=== PATIENT | female | born 1945 | race Caucasian/White ===

== ENCOUNTER → 2016-12-11 | Outpatient (CLI) | payer MEDICARE ==
--- NOTE | 2016-12-14 20:25 | Diagnostic Imaging Report ---
Bilateral screening mammogram The current study was also evaluated with a Computer Aided Detection (CAD) system. Indication: Screening. No current complaints stated on the questionnaire. COMPARISON: 12/07/2015 FINDINGS: The breasts are composed of heterogeneously dense parenchyma which may decrease mammographic sensitivity. Benign-appearing calcification is seen. Allowing for technique and positional differences, no suspicious change is seen. IMPRESSION: Dense breasts with no definite change. ACR BI-RADS Category 2: Benign findings. Result letter will be mailed to the patient. Note: At least 10% of breast cancer is not imaged by mammography. Dictated by: Dictated on workstation # [id number]
== END ==
LOC: RAD 10:31
PROVIDERS: ATTEND Nurse Practitioner
DX: Z12.31 Encounter for screening mammogram for malignant neoplasm of breast (principal)
CPT/HCPCS: 77067

== ENCOUNTER → 2018-01-02 | Outpatient (CLI) | payer MEDICARE ==
--- NOTE | 2018-01-02 16:32 | Diagnostic Imaging Report ---
INDICATION: Routine screening. Comparison is made with prior study from 12/11/2016 and 11/25/2014. Bilateral 2-D and 3-D screening mammography was performed with CAD. The current study was also evaluated with a Computer Aided Detection (CAD) system. FINDINGS: Scattered fibroglandular densities are identified bilaterally. No dominant mass or malignant-appearing microcalcifications are seen. There are benign calcifications present. The axillae are unremarkable. IMPRESSION: No mammographic features suspicious for malignancy are identified. ACR BI-RADS Category 2: Benign findings. Result letter will be mailed to the patient. Note: At least 10% of breast cancer is not imaged by mammography. Dictated by: Dictated on workstation # [id number]
== END ==
LOC: RAD 14:51
PROVIDERS: ATTEND Obstetrics & Gynecology
DX: Z12.31 Encounter for screening mammogram for malignant neoplasm of breast (principal)
CPT/HCPCS: 77067

== ENCOUNTER 2020-01-22 19:18 | Inpatient (IN) | payer MEDICARE ==
[~2020-01-22] VITALS: Ht 160 cm; Wt 53.5 kg
--- NOTE | 2020-01-22 19:36 | ED Lower Extremity ---
General Chief Complaint: Lower Extremity Stated Complaint: L HIP FX [facility] EMS[facility] Exam Limitations: other (dementia) History of Present Illness Date Seen by Provider: January 22, 2020 Time Seen by Provider: 19:31 Initial Comments [facility] with reports of left hip pain that she has been complaining of since yesterday. She had a mobile x-ray today which apparently showed a hip fracture. Primary care was notified and requested evaluation in the emergency room. prison staff reports there has been no witnessed fall since October of this year. Patient has Alzheimer's and is unable to contribute to history of present illness. Onset: yesterday Severity: moderate Pain/Injury Location: left hip Method of Injury: unknown Modifying Factors: Worse With Movement Allergies and Home Medications Allergies Coded Allergies: No Known Drug Allergies (Unverified , 01/22/20) Patient Home Medication List Home Medication List Reviewed: Yes Review of Systems Constitutional: see HPI, other (unable to obtain due to dementia) Physical Exam Vital Signs Vital Signs - First Documented 01/22/20 19:22 Temp 36.6 Pulse 84 Resp 16 B/P (MAP) 133/75 (94) Pulse Ox 95 O2 Delivery Room Air Capillary Refill : Height, Weight, BMI Height: '" Weight: lbs. oz. kg; BMI Method: General Appearance: WD/WN, no apparent distress, other (sleeping, arousable to loud verbal stimuli, otherwise disoriented and doesn't care much for conversation.) HEENT: PERRL/EOMI, normal ENT inspection, other (no obvious signs of head injury but I will obtain a CT scan of the head given her lethargy and the unknown details surrounding this left hip injury.) Neck: non-tender, full range of motion Respiratory: no respiratory distress, no accessory muscle use Hips: left hip other (the left leg is shortened and externally rotated with a palpable 1+ posterior tibial pulses bilaterally. No ecchymosis or erythema.) Legs: bilateral leg non-tender, bilateral leg normal inspection, bilateral leg normal range of motion Knees: bilateral knee non-tender, bilateral knee normal inspection, bilateral knee normal range of motion Ankles: bilateral ankle non-tender, bilateral ankle normal inspection, bilateral ankle normal range of motion Feet: bilateral foot non-tender, bilateral foot normal inspection, bilateral foot normal range of motion Neurologic/Psychiatric: other Skin: normal color, warm/dry Progress/Results/Core Measures Results/Orders Lab Results Laboratory Tests Test 01/22/20 19:24 01/22/20 19:25 Range/Units Urine Color YELLOW Urine Clarity CLEAR Urine pH 6.5 5-9 Urine Specific [place] 1.020 1.016-1.022 Urine Protein 1+ H NEGATIVE Urine Glucose (UA) TRACE H NEGATIVE Urine Ketones TRACE H NEGATIVE Urine Nitrite NEGATIVE NEGATIVE Urine Bilirubin NEGATIVE NEGATIVE Urine Urobilinogen 0.2 < = 1.0 MG/DL Urine Leukocyte Esterase NEGATIVE NEGATIVE Urine RBC (Auto) NEGATIVE NEGATIVE Urine RBC 2-5 H /HPF Urine WBC RARE /HPF Urine Crystals NONE /LPF Urine Bacteria FEW H /HPF Urine Casts NONE /LPF Urine Mucus SMALL H /LPF Urine Culture Indicated NO White Blood Count 9.0 4.3-11.0 10^3/uL Red Blood Count 3.72 L 4.35-5.85 10^6/uL Hemoglobin 10.3 L 11.5-16.0 G/DL Hematocrit 32 L 35-52 % Mean Corpuscular Volume 85 80-99 FL Mean Corpuscular Hemoglobin 28 25-34 PG Mean Corpuscular Hemoglobin Concent 33 32-36 G/DL Red Cell Distribution Width 15.2 H 10.0-14.5 % Platelet Count 336 130-400 10^3/uL Mean Platelet Volume 10.2 7.4-10.4 FL Neutrophils (%) (Auto) 83 H 42-75 % Lymphocytes (%) (Auto) 7 L 12-44 % Monocytes (%) (Auto) 10 0-12 % Eosinophils (%) (Auto) 0 0-10 % Basophils (%) (Auto) 0 0-10 % Neutrophils # (Auto) 7.5 1.8-7.8 X 10^3 Lymphocytes # (Auto) 0.6 L 1.0-4.0 X 10^3 Monocytes # (Auto) 0.9 0.0-1.0 X 10^3 Eosinophils # (Auto) 0.0 0.0-0.3 10^3/uL Basophils # (Auto) 0.0 0.0-0.1 10^3/uL Prothrombin Time 12.8 12.2-14.7 SEC INR Comment 0.9 0.8-1.4 Sodium Level 139 135-145 MMOL/L Potassium Level 3.6 3.6-5.0 MMOL/L Chloride Level 108 H 98-107 MMOL/L Carbon Dioxide Level 21 21-32 MMOL/L Anion Gap 10 5-14 MMOL/L Blood Urea Nitrogen 20 H 7-18 MG/DL Creatinine 0.84 0.60-1.30 MG/DL Estimat Glomerular Filtration Rate > 60 BUN/Creatinine Ratio 24 Glucose Level 143 H 70-105 MG/DL Calcium Level 9.1 8.5-10.1 MG/DL Corrected Calcium 9.4 8.5-10.1 MG/DL Total Bilirubin 0.2 0.1-1.0 MG/DL Aspartate Amino Transf (AST/SGOT) 16 5-34 U/L Alanine Aminotransferase (ALT/SGPT) 14 0-55 U/L Alkaline Phosphatase 101 40-136 U/L Total Protein 6.4 6.4-8.2 GM/DL Albumin 3.6 3.2-4.5 GM/DL My Orders Orders - KAIA JONES APRN Cbc With Automated Diff (01/22/20 19:29) Comprehensive Metabolic Panel (01/22/20 19:29) Protime With Inr (01/22/20 19:29) Khalil Cath (01/22/20 19:29) Chest 1 View, Ap/Pa Only (01/22/20 19:29) Ct Head Wo (01/22/20 19:29) Pelvis With Left Hip 2-3 Views (01/22/20 19:29) Ua Culture If Indicated (01/22/20 19:39) Fentanyl Injection (Sublimaze Injection (01/22/20 20:19) Fentanyl Injection (Sublimaze Injection (01/22/20 20:30) Ekg Tracing (01/22/20 20:30) Medications Given in ED Current Medications Medications Dose Ordered Sig/Nico Route Start Time Stop Time Status Last Admin Dose Admin Fentanyl Citrate 25 mcg Q1H PRN IVP 01/22/20 20:30 01/22/20 20:31 25 MCG Vital Signs/I&O 01/22/20 19:22 Temp 36.6 Pulse 84 Resp 16 B/P (MAP) 133/75 (94) Pulse Ox 95 O2 Delivery Room Air Diagnostic Imaging Diagonstic Imaging: CT Comments NAME: RENETTAWILLIAM Freeman [facility] REC#: [id number] PT STATUS: REG ER : 1945 PHYSICIAN: KAIA JONES APRN ADMIT DATE: 01/22/20/ER Draft Date of Exam:01/22/20 CT HEAD WO PROCEDURE: CT head without contrast. TECHNIQUE: Multiple contiguous axial images were obtained through the brain without the use of intravenous contrast. Auto Exposure Controls were utilized during the CT exam to meet ALARA standards for radiation dose reduction. INDICATION: Hip pain. Possible fall. Dementia. COMPARISON: No comparison available. FINDINGS: Examination is limited by patient motion. Allowing for the limitations of the exam, there are no findings to suggest acute intracranial hemorrhage. There is no intracranial mass effect or shift. There is no evidence of hydrocephalus. There is no abnormal extra-axial collection. There is no evidence to suggest territorial loss of franco-white differentiation. There are scattered regions of hypoattenuation within the periventricular white matter most likely reflective of microvascular disease. There is no abnormal low density within the basal ganglia. The mastoid air cells are clear. The paranasal sinuses demonstrate no air-fluid level. The orbital contents are unremarkable. There is no calvarial abnormality. IMPRESSION: Limited examination secondary to motion. There appear to be microvascular changes within the white matter and age-related global volume loss. There are, however, no CT findings to suggest an acute intracranial abnormality. Dictated on workstation # [id number] Dict: 01/22/202028 Trans: 01/22/202035 [facility] [phone] Interpreted by: MELISA RAPHAEL MD Electronically signed by: NAME: WILLIAM JACKSON [facility] REC#: [id number] PT STATUS: REG ER : 1945 PHYSICIAN: KAIA JONES APRN ADMIT DATE: 01/22/20/ER Draft Date of Exam:01/22/20 CHEST 1 VIEW, AP/PA ONLY EXAMINATION: Single view chest. INDICATION: Hip pain and dementia. FINDINGS: There are age-related interstitial changes within the lungs and there is some discoid atelectasis at both lung bases. There may be a trace left effusion. There is no pneumothorax. Heart size appears appropriate. This no evidence to suggest current congestive failure. IMPRESSION: Likely chronic interstitial changes within the lungs with basilar discoid atelectasis and possible trace left effusion. There is no evidence alveolar consolidation. There is no pneumothorax. No current findings to suggest pulmonary edema or failure. Dictated on workstation # [id number] Dict: 01/22/202031 Trans: 01/22/202036 [facility] [id number] Interpreted by: MELISA RAPHAEL MD Electronically signed by: NAME: WILLIAM JACKSON [facility] REC#: [id number] PT STATUS: REG ER : 1945 PHYSICIAN: KAIA JONES APRN ADMIT DATE: 01/22/20/ER Draft Date of Exam:01/22/20 PELVIS WITH LEFT HIP 2-3 VIEWS EXAMINATION: Let hip and pelvis. INDICATION: Left hip pain. FINDINGS: There is a displaced left subcapital femoral neck fracture with superior migration of the femoral shaft and trochanters. There is no dislocation of the femoral head. Right hip demonstrates no acute fracture. The pelvic ring demonstrates fractures of the bilateral pubic rami which appear to have periosteal reaction and suggests subacute fractures. IMPRESSION: 1. Acute displaced left subcapital femoral neck fracture without dislocation of the femoral head. 2. No proximal right hip fracture. 3. Fractures of the bilateral pubic rami which appear to have periosteal reaction and suggests subacute fractures. No pubic symphysis or SI joint diastasis evident. Dictated on workstation # [id number] Dict: 01/22/202032 Trans: 01/22/202038 [facility] [phone] Interpreted by: MELISA RAPHAEL MD Electronically signed by: Departure Communication (Admissions) Time/Spoke to Admitting Phy: 20:[address] Gotti and Dr. Jordan. Impression Primary Impression: Closed left hip fracture Qualified Codes: S72.002A - Fracture of unspecified part of neck of left femur, initial encounter for closed fracture Disposition: ADMITTED INPATIENT Condition: Stable Admissions Decision to Admit Reason: Admit from ER (Trauma) Decision to Admit/Date: January 22, 2020 Time/Decision to Admit Time: 19:36 Departure-Patient Inst. Referrals: BRANDON LOZANO MD (PCP/Family) Primary Care Physician KAIA JONES APRN January 22, 2020 19:36
[2020-01-22 19:43] LABS: BILIRUBIN,URINE NEGATIVE (NEGATIVE); CLARITY,URINE CLEAR; COLOR,URINE YELLOW; GLUCOSE, URINE (UA) TRACE (NEGATIVE); KETONES,URINE TRACE (NEGATIVE); LEUKOCYTE ESTERASE ,URINE NEGATIVE (NEGATIVE); NITRITE,URINE NEGATIVE (NEGATIVE); PH,URINE 6.5 (5-9); PROTEIN,URINE 1+ (NEGATIVE)
[2020-01-22 19:51] LABS: INR 0.9 (0.8-1.4); PROTHROMBIN TIME PATIENT 12.8 SEC (12.2-14.7)
[2020-01-22 19:56] LABS: BACTERIA,URINE FEW /HPF; WBC,URINE RARE /HPF
[2020-01-22 19:59] LABS: BASOPHILS % (AUTO) 0 % (0-10); EOSINOPHILS % (AUTO) 0 % (0-10); HEMATOCRIT 32 % (35-52); HEMOGLOBIN 10.3 G/DL (11.5-16.0); LYMPHOCYTES # (AUTO) 0.6 X 10^3 (1.0-4.0); LYMPHOCYTES % (AUTO) 7 % (12-44); MEAN CORPUSCULAR HEMOGLOBIN 28 PG (25-34); MEAN CORPUSCULAR HGB CONC 33 G/DL (32-36); MEAN CORPUSCULAR VOLUME 85 FL (80-99); MEAN PLATELET VOLUME 10.2 FL (7.4-10.4); MONOCYTES # (AUTO) 0.9 X 10^3 (0.0-1.0); MONOCYTES % (AUTO) 10 % (0-12); NEUTROPHILS # (AUTO) 7.5 X 10^3 (1.8-7.8); NEUTROPHILS % (AUTO) 83 % (42-75); PLATELET COUNT 336 10^3/uL (130-400); RED CELL DISTRIBUTION WIDTH 15.2 % (10.0-14.5)
[2020-01-22 20:06] LABS: ALANINE AMINOTRANSFERASE 14 U/L (0-55); ALBUMIN 3.6 GM/DL (3.2-4.5); ALKALINE PHOSPHATASE 101 U/L (40-136); BILIRUBIN,TOTAL 0.2 MG/DL (0.1-1.0); BUN/CREATININE RATIO 24; CALCIUM 9.1 MG/DL (8.5-10.1); CARBON DIOXIDE 21 MMOL/L (21-32); CREATININE SERUM 0.84 MG/DL (0.60-1.30); GFR ESTIMATED > 60; GLUCOSE 143 MG/DL (70-105); TOTAL PROTEIN 6.4 GM/DL (6.4-8.2)
[2020-01-22] MEDS ORDERED: fentaNYL INJECTION 100 MCG/2 ML AMP ONE (20:19)
[2020-01-22 20:31] LABS: CHLORIDE 108 MMOL/L (98-107); POTASSIUM 3.6 MMOL/L (3.6-5.0); SODIUM 139 MMOL/L (135-145)
[2020-01-22] MEDS: fentaNYL INJECTION 100 MCG/2 ML AMP IVP PRN ×2 (20:31→20:41)
--- NOTE | 2020-01-22 20:36 | Diagnostic Imaging Report ---
PROCEDURE: CT head without contrast. TECHNIQUE: Multiple contiguous axial images were obtained through the brain without the use of intravenous contrast. Auto Exposure Controls were utilized during the CT exam to meet ALARA standards for radiation dose reduction. INDICATION: Hip pain. Possible fall. Dementia. COMPARISON: No comparison available. FINDINGS: Examination is limited by patient motion. Allowing for the limitations of the exam, there are no findings to suggest acute intracranial hemorrhage. There is no intracranial mass effect or shift. There is no evidence of hydrocephalus. There is no abnormal extra-axial collection. There is no evidence to suggest territorial loss of franco-white differentiation. There are scattered regions of hypoattenuation within the periventricular white matter most likely reflective of microvascular disease. There is no abnormal low density within the basal ganglia. The mastoid air cells are clear. The paranasal sinuses demonstrate no air-fluid level. The orbital contents are unremarkable. There is no calvarial abnormality. IMPRESSION: Limited examination secondary to motion. There appear to be microvascular changes within the white matter and age-related global volume loss. There are, however, no CT findings to suggest an acute intracranial abnormality. Dictated by: Dictated on workstation # [id number]
--- NOTE | 2020-01-22 20:38 | Diagnostic Imaging Report ---
EXAMINATION: Single view chest. INDICATION: Hip pain and dementia. FINDINGS: There are age-related interstitial changes within the lungs and there is some discoid atelectasis at both lung bases. There may be a trace left effusion. There is no pneumothorax. Heart size appears appropriate. This no evidence to suggest current congestive failure. IMPRESSION: Likely chronic interstitial changes within the lungs with basilar discoid atelectasis and possible trace left effusion. There is no evidence alveolar consolidation. There is no pneumothorax. No current findings to suggest pulmonary edema or failure. Dictated by: Dictated on workstation # [id number]
--- NOTE | 2020-01-22 20:39 | Diagnostic Imaging Report ---
EXAMINATION: Let hip and pelvis. INDICATION: Left hip pain. FINDINGS: There is a displaced left subcapital femoral neck fracture with superior migration of the femoral shaft and trochanters. There is no dislocation of the femoral head. Right hip demonstrates no acute fracture. The pelvic ring demonstrates fractures of the bilateral pubic rami which appear to have periosteal reaction and suggests subacute fractures. IMPRESSION: 1. Acute displaced left subcapital femoral neck fracture without dislocation of the femoral head. 2. No proximal right hip fracture. 3. Fractures of the bilateral pubic rami which appear to have periosteal reaction and suggests subacute fractures. No pubic symphysis or SI joint diastasis evident. Dictated by: Dictated on workstation # [id number]
--- NOTE | 2020-01-22 21:07 | Progress Note ---
Standard Progress Note Progress Notes/Assess & Plan Date Seen by a Provider: January 22, 2020 Time Seen by a Provider: 21:05 Progress/Assessment & Plan patient seen and examined plan for left hip bipolar tomorrow consult dictated EFREN MEREDITH MD January 22, 2020 21:07
--- NOTE | 2020-01-22 21:15 | NUR ---
WILLIAM JACKSON S admitted to room 420-1, with an admitting diagnosis of LEFT HIP FRACTURE, on 01/22/20 from ER via BED, accompanied by ER NURSE .WILLIAM JACKSON introduced to surroundings, call light, bed controls, phone, TV, temperature control, lights, meal times, smoking policy, visitor policy, side rail policy, bathrooms and showers. Patient Rights given to patient in the handbook. WILLIAM JACKSON IS UNABLE TO verbalize understanding that [facility] is not responsible for the loss or damage to any personal effects or valuables that are kept in the patients posession during their hospitalization DUE TO ADVANCED DEMENTIA.
--- NOTE | 2020-01-22 21:22 | CONSULTATION REPORT ---
DATE OF SERVICE: 01/22/2020 INPATIENT CONSULTATION REASON FOR CONSULTATION: Left femoral neck fracture. HISTORY OF PRESENT ILLNESS: The patient is a 75-year-old demented shelter resident, who presented after she was complaining of hip pain in her shelter. Apparently radiograph was obtained there yesterday and was found to have a femoral neck fracture. She was also noted to have chronic pubic rami fractures. After the results of the radiographs, it was recommended the patient present to the Emergency Department. PAST MEDICAL HISTORY: Significant for dementia. PHYSICAL EXAMINATION: MUSCULOSKELETAL: The left lower extremity is shortened and externally rotated. No skin lesions are noted. She has symmetric pulses and spontaneous dorsiflexion and plantarflexion of the toes. IMPRESSION: Displaced left femoral neck fracture. PLAN: Left hip bipolar replacement. I discussed options at length with the patient's son as well as risks and benefits. He understands and would like to proceed with surgical intervention. He will discuss this with his father as well. We will plan to do this tomorrow. Job ID: [id number] DocumentID: [id number] Dictated Date: 01/22/2020 21:10:42 Install Technician Date: 01/22/2020 21:21:22 Dictated By: EFREN MEREDITH MD
[2020-01-22 21:26] VITALS: BP 124/71
[2020-01-22] MEDS ORDERED: ONDANSETRON 4 MG/2 ML (SDV) Z0FRAN IV PRN (21:45)
[2020-01-22] MEDS: LACTATED RINGERS 1,000 ML IV SCH (21:53)
[2020-01-23] VITALS (12 sets, daily range): BP systolic 133–164; BP diastolic 58–97
[2020-01-23] MEDS ORDERED: ACET325T38 PO (02:08)
[2020-01-23] MEDS ORDERED: FURO-125 PO (02:38)
[2020-01-23] MEDS ORDERED: GABA-486 PO (02:38)
[2020-01-23] MEDS ORDERED: BISA10SU8 RC (02:38)
[2020-01-23] MEDS ORDERED: CALC-147 PO (02:38)
[2020-01-23] MEDS ORDERED: METH113C21 TP (02:44)
[2020-01-23] MEDS ORDERED: LINA72CA PO (02:44)
[2020-01-23] MEDS ORDERED: LISI40TA PO (02:44)
[2020-01-23] MEDS ORDERED: SERT25TA5 PO (02:49)
[2020-01-23] MEDS ORDERED: POLY17PO31 PO (02:49)
[2020-01-23] MEDS ORDERED: POTA10CA43 PO (02:49)
[2020-01-23] MEDS ORDERED: MEMA10TA2 PO (02:49)
[2020-01-23] MEDS ORDERED: FAMO-119 PO (02:49)
[2020-01-23] MEDS ORDERED: TIZA2TAB7 PO (02:51)
[2020-01-23] MEDS ORDERED: LEVO25TA2 PO (02:51)
[2020-01-23] MEDS ORDERED: LEVO25TA5 PO (02:53)
[2020-01-23] MEDS ORDERED: FURO20TA4 PO (02:54)
[2020-01-23] MEDS ORDERED: MEMA10TA57 PO (03:15)
[2020-01-23] MEDS ORDERED: FAMO-144 PO (03:17)
[2020-01-23] MEDS ORDERED: FAMO20TA3 PO (03:20)
[2020-01-23] MEDS ORDERED: FAMO20TA5 PO (03:24)
[2020-01-23] MEDS ORDERED: POTA10TA36 PO (03:28)
[2020-01-23] MEDS ORDERED: TIZA4TAB4 PO (03:30)
[2020-01-23] MEDS: fentaNYL INJECTION 100 MCG/2 ML AMP IV PRN ×3 (04:59→11:00)
--- NOTE | 2020-01-23 07:00 | Progress Note-Pre Operative ---
Pre-Operative Progress Note H&P Reviewed The H&P was reviewed, patient examined and no changes noted. Date Seen by Provider: January 23, 2020 Time Seen by Provider: 06:59 Date H&P Reviewed: January 23, 2020 Time H&P Reviewed: 06:59 Pre-Operative Diagnosis: left femoral neck fracture EFREN MEREDITH MD January 23, 2020 07:00
--- NOTE | 2020-01-23 07:01 | Progress Note-Post Operative ---
Post-Operative Progess Note Surgeon (s)/Tandem Mill Roller (s) Surgeon EFREN MEREDITH MD Tandem Mill Roller: [place] Damian Pre-Operative Diagnosis left femoral neck fracture Post-Operative Diagnosis left femoral neck fracture Procedure & Operative Findings Date of Procedure 01/23/20 Procedure Performed/Findings left hip bipolar replacement Anesthesia Type GETA Estimated Blood Loss Estimated blood loss (mL): 150 ml Specimens/Packing Specimens Removed femoral head Packing: none EFREN MEREDITH MD January 23, 2020 07:01
[2020-01-23] MEDS: DOCUSATE SODIUM 100 MG (COLACE) CAP PO SCH ×2 (08:30→20:36)
--- NOTE | 2020-01-23 08:31 | NUR ---
BEATRICE FROM SURGERY CALLED TO INFORM THIS RN THAT SURGERY IS STILL PLANNED FOR 1400. THIS RN LET BEATRICE KNOW THAT PT HAS BEEN NPO AND THAT THIS NURSE IRRIGATIONIST DESIGNER WILL CALL TO GET CONSENT FROM , CHAD, WHO IS POA, ALONG WITH ANOTHER NURSE THIS AM. CHAD DID NOT WANT TO BE CALLED THRU THE NIGHT AND TO BE CALLED THIS AM INSTEAD. ALSO BEATRICE ASKED ABOUT PT HAVING COVID TESTING. THERE IS NO ORDER FOR IT. BEATRICE SAID THEY WOULD DO SCREENING IN ER IF WE HAD NOT. PT IS TYPICALLY SCREENED IN ER, BUT WAS NOT TESTED D/T NOT HAVING S/S OF COVID.
--- NOTE | 2020-01-23 08:44 | NUR ---
THE MED REC WAS ENTERED THIS MORNING WHEN THE PT WENT TO THE FLOOR- PT IS FROM [facility] AND THE ORDER SUMMARY REPORT WAS ATTACHED TO THE CHART. WHEN I WENT THRU THE MED REC AND THE REPORT FROM THE FACILITY NO CHANGES WERE MADE I DID UPDATE THE PREFERRED PHARMACY
--- NOTE | 2020-01-23 09:28 | History & Physical-Hospitalist ---
History of Present Illness HPI/Chief Complaint Pt is a 75yoCF with a PMH of dementia who presented to the ER due to left hip pain. She is unable to provide me any history and states that her hip hurts. She is hollering out from her room yelling "help!" She answers no other questions and gives no other information. Per ER note she started complaining of left hip pain two days ago and was brought in yesterday and found to have an acute left hip fracture. Source: patient Date Seen 01/23/20 Time Seen by a Provider: 09:28 Attending Physician Traci Gotti MD PCP No,Local Physician Referring Physician Date of Admission January 22, 2020 at 20:27 Home Medications & Allergies Home Medications Reviewed patient Home Medication Reconciliation performed by pharmacy medication reconciliations burner technician and/or nursing. Patients Allergies have been reviewed. Allergies Allergies Coded Allergies amoxicillin (Verified Allergy, Unknown, 01/22/20) Past Spugium-Bbozpb-Gxmkzq Hx Past Med/Social Hx: Reviewed Nursing Past Med/Soc Hx Patient Social History Employed/Student: retired Alcohol Use: Denies Use Recreational Drug Use: No Smoking Status: Never a Smoker 2nd Hand Smoke Exposure: No Recent Foreign Travel: No Contact w/other who traveled: No Recent Hopitalizations: No Recent Infectious Disease Expo: No Immunizations Up To Date Date of Pneumonia Vaccine: Jun 06, 2019 Date of Influenza Vaccine: Feb 13, 2020 Past Medical History Surgeries: Orthopedic Cardiac: High Cholesterol, Hypertension Neurological: Dementia Gastrointestinal: Gastroesophageal Reflux, Chronic Constipation Endocrine: Hypothyroidsim Psychosocial: Anxiety History of Blood Disorders: No Family History Reviewed Nursing Family Hx Review of Systems ROS-Unable to Obtain: dementia Constitutional: see HPI Physical Exam Physical Exam Vital Signs Vital Signs - First Documented 01/22/20 01/22/20 19:22 21:15 Temp 36.6 Pulse 84 Resp 16 B/P (MAP) 133/75 (94) Pulse Ox 95 O2 Delivery Room Air O2 Flow Rate 2.00 Capillary Refill : Less Than 3 SecondsLess Than 3 Seconds Height, Weight, BMI Height: '" Weight: lbs. oz. kg; 20.89 BMI Method: General Appearance: Chronically ill, Mild Distress HEENT: Moist Mucous Membranes; No Scleral Icterus (L), No Scleral Icterus (R) Respiratory: Lungs Clear, No Accessory Muscle Use, No Respiratory Distress Cardiovascular: Regular Rate, Rhythm, No Murmur Gastrointestinal: Normal Bowel Sounds, Non Tender, Soft Extremity: No Calf Tenderness, No Pedal Edema Neurologic/Psychiatric: Alert, Disoriented Skin: Normal Color, Warm/Dry Results Results/Procedures Labs Laboratory Tests 01/22/20 19:25 01/24/20 06:01 Patient resulted labs reviewed. Imaging: Reviewed Imaging Report Imaging Date of Exam:01/22/20 PELVIS WITH LEFT HIP 2-3 VIEWS EXAMINATION: Let hip and pelvis. INDICATION: Left hip pain. FINDINGS: There is a displaced left subcapital femoral neck fracture with superior migration of the femoral shaft and trochanters. There is no dislocation of the femoral head. Right hip demonstrates no acute fracture. The pelvic ring demonstrates fractures of the bilateral pubic rami which appear to have periosteal reaction and suggests subacute fractures. IMPRESSION: 1. Acute displaced left subcapital femoral neck fracture without dislocation of the femoral head. 2. No proximal right hip fracture. 3. Fractures of the bilateral pubic rami which appear to have periosteal reaction and suggests subacute fractures. No pubic symphysis or SI joint diastasis evident. Assessment/Plan Admission Diagnosis Left hip fracture Admission Status: Inpatient Order (span 2 midnights) Reason for Inpatient Admission: OR for repair Assessment and Plan Left hip fracture ortho consulted, appreciate recs PT/OT Pain management Bowel regimen Hypothyroidism Continue home meds Dementia Reoriented as needed Continue home meds HTN Continue lisinopril Clinical Quality Measures DVT/VTE Risk/Contraindication: Risk Factor Score Per Nursin RFS Level Per Nursing on Admit: 4+=Very High MIRIAN STAPLES MD January 23, 2020 09:28
--- NOTE | 2020-01-23 09:51 | NUR ---
THIS RN ALONG WITH IRASEMA SAENZ RN, 2ND WITNESS, CALLED [facility] AND RECEIVED CONSENT FOR SURGERY.
--- NOTE | 2020-01-23 10:27 | NUR ---
CM/SS visited with the patient for discharge planning. The patient is a long term resident of [facility] who is here due to a hip fracture. The patient was able to answer some basic questions such as where she is living and who her kids/ are but appeared to have difficulty tracking with conversations. CM/SS asked how old her kids were and she pointed to the Yellow tile on the ceiling and stated "oh, about that color". CM/SS unsure if this is due to pain medicine or Dementia. CM/SS contacted Agnieszka from [facility] to check if the patient was long term or skilled. She stated that the patient is living there long term. Agnieszka stated that they are not aware of any fall at the facility and don't think she would have been able to get up by herself if she did. The patients has been able to visit the patient at [facility] through her room window but hasn't been able to visit her for 2 months in person. It is planned for the patient to have surgery today. CM/SS will contacted [facility] to coordinate discharge.
[2020-01-23] MEDS: LACTATED RINGERS 1,000 ML IV SCH ×2 (11:01→18:08)
[2020-01-23] MEDS ORDERED: polyethylene glycoL POWDER 17 GM (MIRALAX) PACK PO PRN (11:30)
[2020-01-23] MEDS ORDERED: ACETAMINOPHEN 325 MG TABLET PO PRN ×2 (11:30→14:15)
[2020-01-23] MEDS ORDERED: BISACODYL 10 MG SUPP (DULCOLAX) RC PRN (11:30)
--- NOTE | 2020-01-23 11:38 | Physical Therapy Progress Note ---
Therapy Progress Note Patient to have bipolar left hip surgery on his date by Dr. Jordan. PT will evaluate patient in [facility] January 23, 2020 11:38
--- NOTE | 2020-01-23 11:42 | Occ Therapy Progress Note ---
Therapy Progress Note Pt scheduled to have bipolar left hip surgery on this date. OT will evaluate pt tomorrow. HOMA PUENTES OT January 23, 2020 11:42
[2020-01-23] MEDS ORDERED: NON-FORMULARY MEDICATION 1 EA EA (Potassium Chloride 10 MEQ) PO SCH (12:00)
[2020-01-23] MEDS ORDERED: ENOXAPARIN 40 MG/0.4 ML (LOVENOX) SYR SQ SCH (12:00)
[2020-01-23] MEDS ORDERED: ONDANSETRON 4 MG/2 ML (SDV) Z0FRAN ONE (12:07)
[2020-01-23] MEDS ORDERED: proPOfol 200 MG/20 ML (DIPRIVAN) VIAL IV ONE (12:07)
[2020-01-23] MEDS ORDERED: ROCURONIUM 10 MG/ML 5 ML SYRINGE IV ONE (12:07)
[2020-01-23] MEDS ORDERED: DEXAMETHASONE 10 MG/ML (DECADRON) 1 ML VIAL ONE (12:07)
[2020-01-23] MEDS ORDERED: LIDOCAINE PF 2% 5 ML (XYLOCAINE) VIAL ONE (12:07)
[2020-01-23] MEDS ORDERED: SEVOFLURANE (ULTANE) 15 ML INHAL SOLN ONE ×2 (12:07→15:11)
[2020-01-23] MEDS ORDERED: fentaNYL INJECTION 100 MCG/2 ML AMP ONE (12:07)
[2020-01-23] MEDS: KCL 10 MEQ TAB (MICRO K) PO SCH (12:45)
[2020-01-23] MEDS: FUROSEMIDE 20 MG (LASIX) TAB PO SCH (12:46)
[2020-01-23] MEDS ORDERED: BUPIVACAINE 0.5% 30 ML (SENSORCAINE) VIAL ONE (12:56)
--- NOTE | 2020-01-23 13:00 | NUR ---
SPECIAL CERTIFICATE DICTATOR CAME TO GET PT AT 1300. CHASE IN ANESTHESIA HAD COME BY LATE MORNING TO SEE PT WELL.
[2020-01-23] MEDS ORDERED: ceFAZolin INJECTION 2,000 MG ONE (13:39)
[2020-01-23] MEDS ORDERED: TEMAZEPAM 15 MG (RESTORIL) CAP PO PRN (14:15)
[2020-01-23] MEDS ORDERED: ONDANSETRON 4 MG/2 ML (SDV) Z0FRAN IVP PRN ×2 (14:15→16:00)
[2020-01-23] MEDS ORDERED: diphenhydrAMINE 50 MG/ML INJ (BENADRYL) IVP PRN (14:15)
[2020-01-23] MEDS ORDERED: GLYCOPYRROLATE 0.2 MG/ML (ROBINUL) 2 ML VIAL ONE ×2 (14:20→14:21)
[2020-01-23] MEDS ORDERED: NEOSTIGMINE 3 MG/3 ML VIAL ONE (14:21)
--- NOTE | 2020-01-23 14:33 | Physical Therapy Progress Note ---
Therapy Progress Note Patient currently in surgery. PT will initiate treatment in [facility] January 23, 2020 14:33
[2020-01-23] MEDS ORDERED: LACTATED RINGERS 1,000 ML IV PRN (14:37)
[2020-01-23] MEDS ORDERED: BUPIVACAINE 0.25% 30 ML (SENSORCAINE) VIAL ONE (15:17)
--- NOTE | 2020-01-23 15:35 | NUR ---
RN GAVE REPORT TO MARYA FAUST, WHO WILL BE TAKING OVER CARE OF PT. PT STILL CURRENTLY IN OR AND SHOULD BE BACK TO FLOOR AROUND 1420.
[2020-01-23] MEDS ORDERED: morphine INJ 10 MG/ML 1ML (SYR OR VIAL) ONE (15:48)
[2020-01-23] MEDS ORDERED: morphine INJ 10 MG/ML 1ML (SYR OR VIAL) IVP ONE (16:00)
--- NOTE | 2020-01-23 16:58 | Diagnostic Imaging Report ---
INDICATION: Postoperative hip. COMPARISON: January 22, 2020. TECHNIQUE: Single radiograph of the left hip dated January 23, 2020. FINDINGS: Interval placement of a left total hip arthroplasty with skin clips and postsurgical subcutaneous emphysema within the region. No evidence of immediate hardware complication. No acute fracture or dislocation. No suspicious radiopaque foreign body. IMPRESSION: Interval placement of a left total hip arthroplasty without evidence of immediate hardware complication, suspicious radiopaque foreign body, or new acute osseous abnormality. Dictated by: Dictated on workstation # [id number]
[2020-01-23] MEDS: SENNOSIDES 8.6 MG (SENOKOT) TAB PO SCH (20:35)
[2020-01-23] MEDS: MEMANTINE 10 MG (NAMENDA) TABLET PO SCH (20:36)
[2020-01-23] MEDS ORDERED: ceFAZolin 2 GM IV Premixed 50 ML IV ONE (21:00)
--- NOTE | 2020-01-23 22:17 | NUR ---
Did not administer Zanaflex. Pt is still sedated from surgery.
[2020-01-23] MEDS: CEFUROXIME INJECTION 750 MG in WATER (STERILE) FOR INJECTION 10 ML IV SCH (22:31)
[2020-01-24] MEDS: HYDROcodone/APAP 7.5 MG/325 MG (LORTAB, LORCET PLUS) TABLET PO PRN ×3 (00:25→17:31)
[2020-01-24 00:42] VITALS: BP 167/111
[2020-01-24] MEDS: morphine INJ 4 MG/ML 1 ML (VIAL/SYRINGE) IVP PRN ×5 (01:33→20:13)
--- NOTE | 2020-01-24 02:03 | OPERATIVE REPORT ---
DATE OF SERVICE: 01/23/2020 PREOPERATIVE DIAGNOSIS: Left displaced femoral neck fracture. POSTOPERATIVE DIAGNOSIS: Left displaced femoral neck fracture. PROCEDURE: Left hip bipolar replacement. SURGEON: Jairo Jordan MD UNION ORGANIZER: Mihcoacano Damian, who assisted throughout the procedure and closed the incision. ANESTHESIA: General endotracheal by Te Gonzalez CRNA. ESTIMATED BLOOD LOSS: 150 mL. DRAINS: None. COMPLICATIONS: None. POSTOPERATIVE PLAN: Routine protocol with hip precautions and weightbearing as tolerated. MATERIALS: DePuy/Synthes pressfit 3 femoral stem with a neutral 43 head and neck/head. STATEMENT OF MEDICAL NECESSITY: The patient is a 75-year-old [facility] resident with dementia who presented with left hip pain. She was found to have a displaced left femoral neck fracture. The patient was counseled regarding treatment options and elected to proceed with surgical intervention. DESCRIPTION OF PROCEDURE: After risks and benefits of procedure were discussed and questions were answered, an informed consent was signed and placed on chart. The operative site was confirmed in the preoperative holding area initialed by the surgeon. The patient was then transported to the operating room and after adequate levels of general endotracheal anesthetic were obtained, a timeout was called confirming the operative site. The patient was then carefully placed in the right lateral decubitus position being careful to place an axillary roll and pad all bony prominences. The left hip and lower extremity were prepped and draped in the usual sterile fashion. Standard anterior lateral approach was utilized. The iliotibial band was incised in line with the incision. The abductor tendon was released from the greater trochanter leaving a 2 cm cuff for later reattachment. A hip capsulotomy was performed. The femoral neck cut was made. There was a hematoma noted indicating an acute injury. The femoral head was removed and sized to a size 43, this was then trialed. The joint was copiously irrigated and no loose bodies were noted. The femur was then carefully prepared with the box chisel followed by the T-handle reamer and broaches up to a size 3. Broach was then used as trialed with a neutral head 43 head/liner. The hip was reduced and taken through range of motion with no impingement noted and no instability in any plane was noted. Full range of motion was noted. The hip was then redislocated and the trials were removed. The joint was further irrigated with pulse lavage ensuring that there were no loose bodies. The three prosthesis was placed in 15 degrees of anteversion. A good fill was noted. The proximal aspect was irrigated and the head/liner was placed. The hip was then further irrigated and inspected for loose bodies. The hip was reduced and taken through range of motion with no impingement was noted. No instability was noted in any plane and full range of motion was noted. The joint was further irrigated. The abductor and capsule were reapproximated using #5 Tevdek. The wound was further irrigated. The iliotibial band was closed in a running fashion with #1 Vicryl. Subcutaneous tissues were irrigated using a total of 3 liters throughout the procedure. A 0 Vicryl was used to deep subcutaneous tissue, 2-0 Vicryl for the superficial subcutaneous tissue, jeannie were used on the skin. A soft dressing was applied and the patient was transported to the recovery room awake and in stable condition. Job ID: [id number] DocumentID: [id number] Dictated Date: 01/23/2020 15:30:21 Hammer Setter Date: 01/24/2020 02:03:00 Dictated By: JAIRO JORDAN MD
[2020-01-24 04:00] VITALS: BP 109/48
[2020-01-24] MEDS: CEFUROXIME INJECTION 750 MG in WATER (STERILE) FOR INJECTION 10 ML IV SCH (06:20)
[2020-01-24 06:22] LABS: HEMOGLOBIN 8.5 G/DL (11.5-16.0); MEAN PLATELET VOLUME 10.3 FL (7.4-10.4); RED CELL DISTRIBUTION WIDTH 14.6 % (10.0-14.5)
[2020-01-24] MEDS: MULTIVIT W/MINERALS TAB (THERAGRAN M) PO SCH (06:22)
[2020-01-24] MEDS: LEVOTHYROXINE 25 MCG (LEVOTHROID) TAB PO SCH (06:22)
[2020-01-24 06:50] LABS: BUN/CREATININE RATIO 22; CALCIUM 8.9 MG/DL (8.5-10.1); CARBON DIOXIDE 25 MMOL/L (21-32); CHLORIDE 105 MMOL/L (98-107); CREATININE SERUM 0.69 MG/DL (0.60-1.30); GFR ESTIMATED > 60; GLUCOSE 110 MG/DL (70-105); POTASSIUM 4.3 MMOL/L (3.6-5.0); SODIUM 140 MMOL/L (135-145)
[2020-01-24] MEDS: LACTATED RINGERS 1,000 ML IV SCH (07:37)
[2020-01-24 08:00] VITALS: BP 169/76
--- NOTE | 2020-01-24 08:03 | Progress Note ---
Standard Progress Note Progress Notes/Assess & Plan Date Seen by a Provider: January 24, 2020 Time Seen by a Provider: 08:02 Progress/Assessment & Plan patient seen and examined plan for left hip bipolar tomorrow consult dictated Final Diagnosis no complaints radiographs--HW well positioned without fracture Vital Signs Date Time Temp Pulse Resp B/P (MAP) Pulse Ox O2 Delivery O2 Flow Rate FiO2 01/24/20 04:00 36.1 88 16 109/48 (68) 95 Nasal Cannula 4.00 01/24/20 00:42 36.9 66 20 167/111 (129) 97 Nasal Cannula 4.00 01/23/20 20:00 97 Nasal Cannula 4.00 01/23/20 19:35 36.5 69 22 135/67 (89) 97 Nasal Cannula 4.00 01/23/20 17:00 36.0 60 18 160/62 (94) 100 Nasal Cannula 3.00 01/23/20 16:35 Nasal Cannula 3 01/23/20 16:24 36.3 16 164/66 (98) 98 Nasal Cannula 3 01/23/20 16:20 18 159/78 (105) 97 Nasal Cannula 3 01/23/20 16:10 16 162/58 (92) 97 Nasal Cannula 3 01/23/20 16:05 Nasal Cannula 3 01/23/20 16:00 18 133/91 (105) 96 OxyMask 10 01/23/20 15:50 16 146/89 (108) 96 OxyMask 10 01/23/20 15:40 OxyMask 10 01/23/20 15:40 36.3 20 145/97 (113) 100 OxyMask 10 01/23/20 11:55 36.6 67 18 135/71 (92) 94 Nasal Cannula 2.00 01/23/20 08:08 36.2 55 16 147/80 (102) 98 Nasal Cannula 2.00 I & O 01/24/20 07:00 Intake Total 2320 ml Output Total 1600 ml Balance 720 ml Laboratory Tests Test 01/24/20 06:01 Range/Units White Blood Count 7.0 4.3-11.0 10^3/uL Red Blood Count 3.03 L 4.35-5.85 10^6/uL Hemoglobin 8.5 L 11.5-16.0 G/DL Hematocrit 27 L 35-52 % Mean Corpuscular Volume 88 80-99 FL Mean Corpuscular Hemoglobin 28 25-34 PG Mean Corpuscular Hemoglobin Concent 32 32-36 G/DL Red Cell Distribution Width 14.6 H 10.0-14.5 % Platelet Count 270 130-400 10^3/uL Mean Platelet Volume 10.3 7.4-10.4 FL Sodium Level 140 135-145 MMOL/L Potassium Level 4.3 3.6-5.0 MMOL/L Chloride Level 105 98-107 MMOL/L Carbon Dioxide Level 25 21-32 MMOL/L Anion Gap 10 5-14 MMOL/L Blood Urea Nitrogen 15 7-18 MG/DL Creatinine 0.69 0.60-1.30 MG/DL Estimat Glomerular Filtration Rate > 60 BUN/Creatinine Ratio 22 Glucose Level 110 H 70-105 MG/DL Calcium Level 8.9 8.5-10.1 MG/DL L hip dressing intact. No calf tenderness. NVI distally s/p L hip bipolar PT/OT NH return when medically able EFREN MEREDITH MD January 24, 2020 08:03
--- NOTE | 2020-01-24 08:05 | NUR ---
MICRO CALLED WITH RESULTS OF PT'S NASAL SWAB, SHE IS POSITIVE FOR MRSA IN [place]AR[place]. DR STAPLES MADE AWARE.
[2020-01-24] MEDS ORDERED: CALCIUM CITRATE PO SCH (09:00)
[2020-01-24] MEDS ORDERED: [UNRECOGNIZED DRUG - OTHER] PO SCH (09:00)
[2020-01-24] MEDS ORDERED: NON-FORMULARY MEDICATION 1 EA EA (Sertraline HCl 25 MG) PO SCH (09:00)
[2020-01-24] MEDS ORDERED: NON-FORMULARY MEDICATION 1 EA EA (Linaclotide (Linzess) 72 MCG) PO SCH (09:00)
[2020-01-24] MEDS ORDERED: VITAMIN D3 PO SCH (09:00)
--- NOTE | 2020-01-24 09:44 | Anesthesia-General Post-Op ---
General Patient Condition Mental Status/LOC: Same as Preop Cardiovascular: Satisfactory Nausea/Vomiting: Absent Respiratory: Satisfactory Pain: Controlled Complications: Absent Post Op Complications Complications None Follow Up Care/Instructions Patient Instructions None needed. Anesthesia/Patient Condition Patient Condition Patient is doing well, no complaints, stable vital signs, no apparent adverse anesthesia problems. No complications reported per nursing. CHASE HOLBROOK CRNA January 24, 2020 09:44
--- NOTE | 2020-01-24 10:00 | NUR ---
DR STAPLES ORDERED FOR SCD'S TO BE REMOVED TODAY D/T PT BEING VERY AGITATATED BY ALL OF THE LINES HOOKED TO HER. SHE ALSO ORDERED TO D/C HER FLUIDS. SHE ORDERED FOR HER TO HAVE A 1-1 SITTER WHILE PT WAS AGITITATED.
[2020-01-24] MEDS: ENOXAPARIN 30 MG/0.3 ML (LOVENOX) SYR SC SCH ×2 (10:12→20:13)
[2020-01-24] MEDS: GABAPENTIN 100 MG (NEURONTIN) CAP PO SCH (10:15)
[2020-01-24] MEDS: MEMANTINE 10 MG (NAMENDA) TABLET PO SCH ×2 (10:15→20:12)
[2020-01-24] MEDS: FAMOTIDINE 20 MG (PEPCID) TABLET PO SCH (10:15)
[2020-01-24] MEDS: KCL 10 MEQ TAB (MICRO K) PO SCH ×2 (10:16→14:29)
[2020-01-24] MEDS: SENNOSIDES 8.6 MG (SENOKOT) TAB PO SCH ×2 (10:16→20:12)
[2020-01-24] MEDS: FUROSEMIDE 20 MG (LASIX) TAB PO SCH ×2 (10:16→14:29)
[2020-01-24] MEDS: SERTRALINE 50 MG (ZOLOFT) TABLET PO SCH (10:17)
[2020-01-24] MEDS: DOCUSATE SODIUM 100 MG (COLACE) CAP PO SCH ×2 (10:17→20:13)
[2020-01-24] MEDS: CALCIUM CARB + VIT D 600 MG (CALCARB + D) TAB PO SCH (10:17)
[2020-01-24] MEDS: lisINopril 40 MG (PRINIVIL) TABLET PO SCH (10:17)
--- NOTE | 2020-01-24 11:25 | Progress Note - Hospitalist ---
Subjective HPI/CC On Admission Date Seen by Provider: January 24, 2020 Time Seen by Provider: 11:21 Pt is a 75yoCF with a PMH of dementia who presented to the ER due to left hip pain. She is unable to provide me any history and states that her hip hurts. She is hollering out from her room yelling "help!" She answers no other questions and gives no other information. Per ER note she started complaining of left hip pain two days ago and was brought in yesterday and found to have an acute left hip fracture. Subjective/Events-last exam Pt is laying in bed. Confused. Cannot give any details. Spoke with RN. Was very agitated but calms when someone is in the room. Objective Exam Vital Signs Vital Signs Date Time Temp Pulse Resp B/P (MAP) Pulse Ox O2 Delivery O2 Flow Rate FiO2 01/24/20 08:00 37.3 67 8 169/76 (107) 99 Nasal Cannula 01/24/20 04:00 4.00 Capillary Refill : Less Than 3 SecondsLess Than 3 Seconds General Appearance: Anxious, Chronically ill Respiratory: Lungs Clear, No Respiratory Distress Cardiovascular: Regular Rate, Rhythm, No Murmur Neurologic/Psychiatric: Alert, Disoriented Results/Procedures Lab Laboratory Tests 01/24/20 06:01 Patient resulted labs reviewed. Imaging: Reviewed Imaging Report Assessment/Plan Assessment and Plan Assess & Plan/Chief Complaint Left hip fracture POD #1 ortho consulted, appreciate recs PT/OT Pain management Bowel regimen Anemia Likely acute blood loss from surgery and dilution from fluids Trend Hypothyroidism Continue home meds Dementia Reoriented as needed Continue home meds Sitter at bedside HTN Continue lisinopril Clinical Quality Measures DVT/VTE Risk/Contraindication: Risk Factor Score Per Nursin RFS Level Per Nursing on Admit: 4+=Very High MIRIAN STAPLES MD January 24, 2020 11:25
[2020-01-24] MEDS: MUPIROCIN 2% OINT 22 GM (BACTROBAN) TUBE NSEACH SCH ×2 (11:46→20:13)
--- NOTE | 2020-01-24 12:10 | Occupational Therapy Eval ---
OT Evaluation-General/PLF Medical Diagnosis Admission Date January 22, 2020 at 20:27 Medical Diagnosis: Bipolar L hip repair Onset Date: January 23, 2020 Therapy Diagnosis Therapy Diagnosis: Decreased ADL/ cognition Precautions Precautions/Isolations: Standard Precautions Weight Bear Status Weight Bearing Restriction: Weight Bearing/Tolerated Referral Physician: Leah Referral Reason: Activity Tolerance, Self Care, Evaluation/Treatment, Strengthening/ROM Medical History Additional Medical History dementia Current History Per nursing who states phoned son, pt was SBA within nursing facility for ADLs prior to hip injury. They believe pt fell and got up on own ~Jul and continued to c/o pain in L hip. Pt underwent bipolar hip surg 01/22. Reviewed History: Yes Social History Home: [facility] ADL-Prior Level of Function SCALE: Activities may be completed with or without assistive devices. 7-Woarptwiwa-gbfswjn completes the activity by him/herself with no assistance from a helper. 5-Set-up or Clean-up Assistance-helper sets up or cleans up; patient completes activity. [place] assists only prior to or following the activity. 4-Supervision or Touching Assistance-helper provides verbal cues and/or touching/steadying and/or contact guard assistance as patient completes activity. Assistance may be provided throughout the activity or intermittently. 3-Partial/Moderate Assistance-helper does LESS THAN HALF the effort. [place] lifts, holds or supports trunk or limbs, but provides less than half the effort. 2-Substantial/Maximal Assistance-helper does MORE THAN HALF the effort. [place] lifts or holds trunk or limbs and provides more than half the effort. 4-Aoesczpbm-wcssyw does ALL the effort. Patient does none of the effort to complete the activity. Or, the assistance of 2 or more helpers is required for the patient to complete the activity. If activity was not attempted, code reason: 7-Patient Refused. 9-Not Applicable-not attempted and the patient did not perform the activity before the current illness, exacerbation or injury. 10-Not Attempted due to Environmental Limitations-(lack of equipment, weather restraints, etc.). 88-Not Attempted due to Medical Conditions or Safety Concerns. Self Care: Needed Some Help Functional Cognition: Needed Some Help OT Current Status Subjective Pt seen in bed, pt yelling upon entry. Pt oriented to person only. Pt states in pain when L hip moved. Mental Status/Objective Patient Orientation: Person Attachments: IV Current Glasses/Contacts: Yes Upper Extremity ROM DNT per cognition Upper Extremity Coordination DNT per cognition Upper Extremity Sensation DNT per cognition Upper Extremity Strength DNT per cognition, though mobilizes arms WFL at times. ADL-Treatment Eating (QC): 6 (eating upon entry) Other Treatments Pt seen in bed. Pt requires max cues to initiate therapy. Per nursing pt's son reports SBA in nursing facility, per clinical judgment pt's dementia may have altered previous SBA level as pt oriented to person only and would now require TD-max A with all ADL tasks. Pt educated on surgery, no AE educated upon per cognition. Pt requires TD to move EOB, able to stand 3x with max A, requires cues to stand fully. Unable to complete. Pt requires redirections throughout due to pain and fixation on keeping gown over legs. Pt returned to bed with TD. Pt continues to c/o pain, nursing present. All needs met. Due to decreased cognition/ inability to carry over skills and precaution management and 24 hour assist at d/c, OT not rendered at this time. Education OT Patient Education: Correct positioning, Purpose of tx/functional activities, Reviewed precautions Teaching Recipient: Patient Teaching Methods: Demonstration, Discussion Response to Teaching: Unable to Return Demonstration, Unable to Comprehend, Reinforcement Needed OT Chcf Goals Chcf Goals 1=Demonstrate adherence to instructed precautions during ADL tasks. 2=Patient will verbalize/demonstrate understanding of assistive devices/modifications for ADL. 3=Patient will improve strength/tolerance for activity to enable patient to perform ADL's. OT Education/Plan Problem List/Assessment Assessment: No Skilled OT Needs ID'd Discharge Recommendations Plan/Recommendations: Discharge/Goals Met Therapy Discharge Recommendati: 24 Hour Supervision Treatment Plan/Plan of Care Treatment,Training & Education: Yes Patient would benefit from OT for education, treatment and training to promote independence in ADL's, mobility, safety and/or upper extremity function for ADL' s. Plan of Care: OTHER (eval only) Treatment Duration: January 24, 2020 Frequency: 1 time per week (drea and d/c.) Time/GCodes Start Time: 09:07 Stop Time: 09:35 Total Time Billed (hr/min): 28 Billed Treatment Time 1, EVM (14) OT/ PT co-treat and split time. CIERA CARLOS OTR January 24, 2020 12:10
--- NOTE | 2020-01-24 14:20 | Physical Therapy Evaluation ---
PT Evaluation-General Medical Diagnosis Admission Date January 22, 2020 at 20:27 Medical Diagnosis: Bipolar L hip repair Onset Date: January 23, 2020 Therapy Diagnosis Therapy Diagnosis: decreased functional mobility Precautions Precautions/Isolations: Fall Prevention, Standard Precautions Weight Bear Status Right Lower Extremity: Right Weight Bearing/Tolerated Left Lower Extremity: Left Weight Bearing/Tolerated Referral Physician: [place] Damian Reason for Referral: Evaluation/Treatment Medical History Pertinent Medical History: HTN, Hypothroidism Additional Medical History Alzheimer's Current History Pt arrived EMS from [place] on 01/23/2020 with (L) hip pain. Underwent bipolar hip replacement on 01/23/2020. Reviewed History: Yes Social History Home: [facility] Prior Prior Level of Function SCALE: Activities may be completed with or without assistive devices. 7-Bdutdaltjn-bkfkbfi completes the activity by him/herself with no assistance from a helper. 5-Set-up or Clean-up Assistance-helper sets up or cleans up; patient completes activity. [place] assists only prior to or following the activity. 4-Supervision or Touching Assistance-helper provides verbal cues and/or touching/steadying and/or contact guard assistance as patient completes activity. Assistance may be provided throughout the activity or intermittently. 3-Partial/Moderate Assistance-helper does LESS THAN HALF the effort. [place] lifts, holds or supports trunk or limbs, but provides less than half the effort. 2-Substantial/Maximal Assistance-helper does MORE THAN HALF the effort. [place] lifts or holds trunk or limbs and provides more than half the effort. 1-Hhxrxybde-kknefm does ALL the effort. Patient does none of the effort to complete the activity. Or, the assistance of 2 or more helpers is required for the patient to complete the activity. If activity was not attempted, code reason: 7-Patient Refused. 9-Not Applicable-not attempted and the patient did not perform the activity before the current illness, exacerbation or injury. 10-Not Attempted due to Environmental Limitations-(lack of equipment, weather restraints, etc.). 88-Not Attempted due to Medical Conditions or Safety Concerns. Bed Mobility: 5 Transfers (B,C,W/C): 5 Gait: 5 Stairs: 9 Wheelchair Mobility: 9 Indoor Mobility (Ambulation): Needed Some Help Stairs: Not [place] Prior Devices Use: None Per nursing report, family reported that Pt had previously been supervision at [place] (unsure of AD use). Pt's family reported that Pt began having hip pain in July 2019 and it increased without witnessed fall. PT Evaluation-Current Subjective Pt very anxious in bed, stating "Please don't, please don't" whenever (L) LE was touched. Pt nonsensical in speech at times. At the end of treatment Pt stated, "My mom came!". Objective Patient Orientation: Person, Confused Attachments: Khalil Catheter, IV ROM/Strength ROM Upper Extremities See OT ROM Lower Extremities Grossly WFL for functional mobility; Pt very guarded with (L) LE Strength Upper Extremities See OT Strength Lower Extremities Unable to formally assess due to poor command following. Integumentary/Posture Integumentary See nurses' notes Bladder Incontinence: Khalil Cath Posture Kyphotic Sensory Vision: Functional Hearing: Functional Transfers Sit to Lying (QC): 1 Lying to Sitting/Side of Bed(Q: 1 Sit to Stand (QC): 2 Supine<->sit (lazy isak) with max A x 2. Sit<->stand at EOB x 2 trials with max A x 1-2. Pt stood x 1' with dependent assist to allow linen change. Pt did not follow tactile or VCS to come to stand, maintains retropulsion and (B) hip and knee flexion. At EOB Pt becoming increasingly anxious, agitated, repeatedly pulling at IV and Khalil. Unsafe to attempt up to chair this date. Gait Does the Patient Walk?: No and Walking Goal IS indicated Mode of Locomotion: Walk Anticipated Mode of Locomotion: Both Walk 10 feet (QC): 88 Walk 50 ft with 2 Turns(QC): 88 Walk 150 ft (QC): 88 Walking 10ft/uneven surface-QC: 88 Comments/Gait Description Pt unable to stand without dependent assist this date. Wheelchair Training Does the Pt Use a Wheelchair?: No Wheel 50 ft with 2 turns (QC): 9 Wheel 150 ft (QC): 9 Stairs 1 Step (curb) (QC): 9 4 Steps (QC): 9 12 Steps (QC): 9 Balance Sitting Static: Poor Sitting Dynamic: Poor Standing Static: Poor Standing Dynamic: Poor Picking up an Object (QC): 88 Treatment Eval. Co-treat with OT due to level of skilled assist required. Assessment/Needs Pt is a 75 y.o. female s/p bipolar hip replacement s/p Fx. Pt may benefit from skilled PT to improve (I) with functional mobility and transfers to decrease caregiver burden upon return to NH. Pt's potential progress limited by Alzheimer's; limited command following, anxiety. Rehab Potential: Fair PT Short Term Goals Short Term Goals Time Frame: January 28, 2020 Sit to lyin Lying to sitting on side of be: 4 Sit to stand: 4 PT Supervisor Payroll Goals Supervisor Payroll Goals PT Senior [facility] Goals Time Frame: January 31, 2020 Roll Left & Right (QC): 4 Sit to Lying (QC): 4 Lying-Sitting on Side/Bed(QC): 4 Sit to Stand (QC): 4 Chair/Eta-xw-Jpnxl Xfer(QC): 4 Toilet Transfer (QC): 4 Car Transfer (QC): 3 Does the Patient Walk: No and Walking Goal IS indicated Walk 10 feet (QC): 4 Walk 50ft with 2 Turns (QC): 4 Walk 150 ft (QC): 4 Walking 10ft on Uneven Surface: 9 1 Step (curb) (QC): 9 4 Steps (QC): 9 12 Steps (QC): 9 Picking up an Object (QC): 9 Does the Pt use WC or Scooter?: No Wheel 50 feet with 2 turns (QC: 3 Type: Manual Wheel 150 feet: 3 Type: Manual PT LTGs established to decrease caregiver burden upon return to NH. PT Plan Problem List Problem List: Activity Tolerance, Functional Strength, Safety, Balance, Gait, Transfer, Bed Mobility, ROM Treatment/Plan Treatment Plan: Continue Plan of Care Treatment Plan: Bed Mobility, Education, Functional Activity [place], Functional Strength, Group Therapy, Gait, Safety, Therapeutic Exercise, Transfers Treatment Duration: Feb 07, 2020 Frequency: 11 times per week Estimated Hrs Per Day: .25 hour per day Patient and/or Family Agrees t: Yes Safety Risks/Education Teaching Recipient: Patient Teaching Methods: Discussion Response to Teaching: Unable to Comprehend Role of PT Discharge Recommendations Therapy Discharge Recommendati: Post Acute PT Barriers to Progress Alzheimer's Time/GCodes Time In: 09 Time Out: 934 Total Billed Treatment Time: 14 Total Billed Treatment 1, EVHIGH x 14' Co-treat with OT due to level of skilled assist required. RAPHAEL HENNESSY DPT January 24, 2020 14:20
[2020-01-24 16:08] VITALS: BP 109/68
--- NOTE | 2020-01-24 18:54 | NUR ---
PT SLEPT MOST OF THE AFTERNOON AFTER LUNCH AND WOKE UP AT 1600. SHE CONTINUES TO BE VERY CONFUSED TO WHAT IS GOING ON, WHERE SHE IS AND WHY SHE HAS PAIN TO THE LEFT HIP. STAFF ATTEMPTS TO REORIENT HER MULTIPLE TIMES WITH NO SUCCESS. PT DID TRY TO TAKE OFF BANDAGE TO LEFT HIP, WHICH THIS RN REINFORCED WITH MEDIPORE, AND SHE IS CONFUSED TO WHAT HER CATH IS. SHE ALSO STARTED TO TAKE OFF HER GOWN MULTIPLE TIMES WHILE THIS RN WAS IN HER ROOM ASSISTING HER WITH SUPPER AND ADMIN MEDICATIONS. SHE DID EAT APPROX 25% OF HER SUPPER TONIGHT. THIS RN ADMIN LORTAB AT APPROX 1700 AND IT DID NOT APPEAR TO BE EFFECTIVE. SHE WAS REPOSITIONED BY STAFF FOR COMFORT AND PREVENT PRESSURE AND SHE DOES YELL. SHE ALSO YELLS IF NO ONE IS IN THE ROOM WITH HER. SHE WILL YELL FOR HELP VERY LOUDLY. MORPHINE ADMIN AT 1830 AND PCT IS SITTING 1:1 WITH HER AT THIS TIME WELL. SHE CONTINUES TO PICK AT BLANKET AND GOWN. WILL PASS ON INFO TO PATIENT ADMITTING CLERK RN.
[2020-01-24 19:38] VITALS: BP 118/55
[2020-01-24] MEDS: hydrOXYzine (ATARAX) 10 MG TAB PO PRN (20:12)
[2020-01-24] MEDS: MELATONIN 3 MG TABLET PO PRN (20:12)
[2020-01-25] VITALS: BP 128/68
[2020-01-25 04:00] VITALS: BP 151/79
[2020-01-25 05:09] LABS: HEMOGLOBIN 8.4 G/DL (11.5-16.0)
[2020-01-25] MEDS: MULTIVIT W/MINERALS TAB (THERAGRAN M) PO SCH (05:38)
[2020-01-25] MEDS: LEVOTHYROXINE 25 MCG (LEVOTHROID) TAB PO SCH (05:38)
[2020-01-25] MEDS: morphine INJ 4 MG/ML 1 ML (VIAL/SYRINGE) IVP PRN ×4 (05:38→21:45)
[2020-01-25 05:50] VITALS: BP 151/79
[2020-01-25] MEDS: FAMOTIDINE 20 MG (PEPCID) TABLET PO SCH (07:33)
[2020-01-25] MEDS: SERTRALINE 50 MG (ZOLOFT) TABLET PO SCH (07:33)
[2020-01-25] MEDS: SENNOSIDES 8.6 MG (SENOKOT) TAB PO SCH (07:33)
[2020-01-25] MEDS: hydrOXYzine (ATARAX) 10 MG TAB PO PRN ×2 (07:33→14:19)
[2020-01-25] MEDS: lisINopril 40 MG (PRINIVIL) TABLET PO SCH (07:33)
[2020-01-25] MEDS: KCL 10 MEQ TAB (MICRO K) PO SCH (07:58)
[2020-01-25] MEDS: FUROSEMIDE 20 MG (LASIX) TAB PO SCH (07:58)
[2020-01-25] MEDS: ENOXAPARIN 30 MG/0.3 ML (LOVENOX) SYR SC SCH ×2 (07:58→21:44)
[2020-01-25] MEDS: HYDROcodone/APAP 7.5 MG/325 MG (LORTAB, LORCET PLUS) TABLET PO PRN ×3 (07:59→21:44)
--- NOTE | 2020-01-25 07:59 | Progress Note ---
Standard Progress Note Progress Notes/Assess & Plan Date Seen by a Provider: January 25, 2020 Time Seen by a Provider: 07:58 Progress/Assessment & Plan patient seen and examined plan for left hip bipolar tomorrow consult dictated Final Diagnosis pleasantly confused Vital Signs Date Time Temp Pulse Resp B/P (MAP) Pulse Ox O2 Delivery O2 Flow Rate FiO2 01/25/20 05:50 36.3 91 18 151/79 (103) 96 Nasal Cannula 2.00 01/25/20 04:00 36.3 91 18 151/79 (103) 96 Nasal Cannula 2.00 01/25/20 00:00 36.2 61 18 128/68 (88) 94 Nasal Cannula 2.00 01/24/20 20:20 Nasal Cannula 4.00 01/24/20 19:38 37.9 71 20 118/55 (76) 92 Room Air 01/24/20 16:08 36.5 75 19 109/68 (82) 96 Room Air 01/24/20 08:00 37.3 67 8 169/76 (107) 99 Nasal Cannula 01/24/20 08:00 97 Nasal Cannula 4.00 I & O 01/25/20 07:00 Intake Total 3245 ml Output Total 725 ml Balance 2520 ml Laboratory Tests Test 01/25/20 04:39 Range/Units Hemoglobin 8.4 L 11.5-16.0 G/DL Hematocrit 27 L 35-52 % L hip incision clean and dry. No calf tenderness s/p L hip bipolar WBAT DC to [facility] in next couple of days EFREN MEREDITH MD January 25, 2020 07:59
[2020-01-25 08:00] VITALS: BP 161/65
[2020-01-25] MEDS: DOCUSATE SODIUM 100 MG (COLACE) CAP PO SCH (08:00)
[2020-01-25] MEDS: CALCIUM CARB + VIT D 600 MG (CALCARB + D) TAB PO SCH (08:00)
[2020-01-25] MEDS: GABAPENTIN 100 MG (NEURONTIN) CAP PO SCH (08:00)
[2020-01-25] MEDS: MEMANTINE 10 MG (NAMENDA) TABLET PO SCH ×2 (09:38→21:44)
[2020-01-25] MEDS: MUPIROCIN 2% OINT 22 GM (BACTROBAN) TUBE NSEACH SCH ×2 (09:41→21:45)
--- NOTE | 2020-01-25 09:47 | Physical Therapy Progress Note ---
Therapy Progress Note Presented to room, Pt very agitated this AM. Repeatedly pulling off gown, pulling at king, IV site. Pt repeatedly reaching towards foot of bed to adjust covers, yelling for "Buzz" to "help me". Nursing reports Pt has received Lortab and now morphine, no change in agitation. No command following, yelling when PT assisted in repositioning in bed. No attempts at mobilization due to agitation, no command following. Will follow 01/26/2020. RAPHAEL HENNESSY DPT January 25, 2020 09:47
--- NOTE | 2020-01-25 10:40 | Progress Note - Hospitalist ---
Subjective HPI/CC On Admission Date Seen by Provider: January 25, 2020 Time Seen by Provider: 10:37 Pt is a 75yoCF with a PMH of dementia who presented to the ER due to left hip pain. She is unable to provide me any history and states that her hip hurts. She is hollering out from her room yelling "help!" She answers no other questions and gives no other information. Per ER note she started complaining of left hip pain two days ago and was brought in yesterday and found to have an acute left hip fracture. Subjective/Events-last exam Pt laying in bed sleeping. RN reports was more agitated this AM and now resting. Does better with sitter in the room. Objective Exam Vital Signs Vital Signs Date Time Temp Pulse Resp B/P (MAP) Pulse Ox O2 Delivery O2 Flow Rate FiO2 01/25/20 08:00 36.8 77 18 161/65 (97) 95 Nasal Cannula 2.00 Capillary Refill : Less Than 3 SecondsLess Than 3 Seconds General Appearance: No Apparent Distress, Chronically ill Respiratory: Lungs Clear, No Respiratory Distress Cardiovascular: Regular Rate, Rhythm, No Murmur Genital/Rectal: Other (catheter in place) Results/Procedures Lab Laboratory Tests 01/25/20 04:39 Patient resulted labs reviewed. Imaging: Reviewed Imaging Report Assessment/Plan Assessment and Plan Assess & Plan/Chief Complaint Left hip fracture POD #2 ortho consulted, appreciate recs PT/OT Pain management Bowel regimen- no BM yet Anemia- stable Likely acute blood loss from surgery and dilution from fluids Trend Hypothyroidism Continue home meds Dementia Reoriented as needed Continue home meds Sitter at bedside HTN Continue lisinopril DC-ed lasix due oral intake being down, will DC K supplement with it Clinical Quality Measures DVT/VTE Risk/Contraindication: Risk Factor Score Per Nursin RFS Level Per Nursing on Admit: 4+=Very High MIRIAN STAPLES MD January 25, 2020 10:40
[2020-01-25] MEDS ORDERED: SENNOSIDES 8.6 MG (SENOKOT) TAB PO PRN (10:45)
--- NOTE | 2020-01-25 15:02 | NUR ---
THIS RN ADMIN PT'S PRN DOSE OF MORPHINE AT APPROX 1400 D/T INTERVENTIONS THAT WERE DUE AND COULD BE PAINFUL FOR PT. PTS DRESSING TO LT HIP CHANGED AND SHE DID NOT TOLERATE THIS WELL. SHE YELLED AND SCREAMED OUT THAT WE WERE HURTING HER. WE THEN HAD TO PUT A BRIEF ON HER D/T ORDERS TO D/C URINARY CATH AND SHE AGAIN CONTINUED TO YELL AND SCREAM AND WE WERE UNABLE TO CONSOLE. THIS NURSE NATIONAL COVERAGE SPECIALIST CALLED DR STAPLES WITH UPDATE ON PT AND HOW SHE WAS TOLERATING THE PRIOR TREATMENTS. DR STAPLES SAID TO GO AHEAD AND ADMIN ATARAX AN HOUR AND A HALF EARLY D/T HER ANXIETY AND TO GIVE LORTAB WELL. SHE IS CURRENTLY STILL LAYING IN BED AND CONTINUES TO YELL. WILL CONTINUE TO MONITOR.
[2020-01-25 16:32] VITALS: BP 156/90
--- NOTE | 2020-01-25 16:42 | NUR ---
THIS RN SAT PTS BEDSIDE FOR APPROX 1 HOUR. DURING THIS TIME RN SPOKE TO PT, GAVE HER SNACKS, DRINKS, HELD HER HAND AND TRIED TO REASSURE HER SHE WAS OK. SHE DID GO TO SLEEP AT APPROX 1350. THIS RN LEFT ROOM TO ATTEND ANOTHER PT AT 1420 AND SHE HAD WOKEN UP AND WAS AGITATED/CONFUSED SHE WAS PRIOR. WHEN ASKED IF SHE WAS IN PAIN THIS TIME SHE DID RESPOND YES. PRN MORPHINE ADMIN.
--- NOTE | 2020-01-25 16:54 | NUR ---
PTS BLOOD PRESSURE WAS TAKEN AROUND 1600 AND WAS ELEVATED D/T PT YELLING AND AGITATION.
[2020-01-25] MEDS: MELATONIN 3 MG TABLET PO PRN (21:44)
[2020-01-26 05:03] LABS: HEMOGLOBIN 8.2 G/DL (11.5-16.0)
[2020-01-26] MEDS: morphine INJ 4 MG/ML 1 ML (VIAL/SYRINGE) IVP PRN ×2 (05:29→09:04)
[2020-01-26] MEDS: CALCIUM CARB + VIT D 600 MG (CALCARB + D) TAB PO SCH (07:34)
[2020-01-26] MEDS: HYDROcodone/APAP 7.5 MG/325 MG (LORTAB, LORCET PLUS) TABLET PO PRN ×2 (07:34→12:27)
[2020-01-26] MEDS: SERTRALINE 50 MG (ZOLOFT) TABLET PO SCH (07:35)
[2020-01-26] MEDS: MEMANTINE 10 MG (NAMENDA) TABLET PO SCH (07:35)
[2020-01-26] MEDS: GABAPENTIN 100 MG (NEURONTIN) CAP PO SCH (07:35)
[2020-01-26] MEDS: lisINopril 40 MG (PRINIVIL) TABLET PO SCH (07:35)
[2020-01-26] MEDS: hydrOXYzine (ATARAX) 10 MG TAB PO PRN ×2 (07:37→12:26)
[2020-01-26] MEDS: ENOXAPARIN 30 MG/0.3 ML (LOVENOX) SYR SC SCH (07:37)
[2020-01-26] MEDS: LEVOTHYROXINE 25 MCG (LEVOTHROID) TAB PO SCH (07:38)
[2020-01-26] MEDS: MUPIROCIN 2% OINT 22 GM (BACTROBAN) TUBE NSEACH SCH (07:38)
--- NOTE | 2020-01-26 08:06 | Progress Note ---
Standard Progress Note Progress Notes/Assess & Plan Date Seen by a Provider: January 26, 2020 Time Seen by a Provider: 08:05 Progress/Assessment & Plan patient seen and examined plan for left hip bipolar tomorrow consult dictated Final Diagnosis no complaints Vital Signs Date Time Temp Pulse Resp B/P (MAP) Pulse Ox O2 Delivery O2 Flow Rate FiO2 01/25/20 20:45 Nasal Cannula 2.00 01/25/20 18:26 Nasal Cannula 2.00 28 01/25/20 16:32 36.8 91 20 156/90 (112) 91 Room Air I & O 01/26/20 07:00 Intake Total 650 ml Output Total 1050 ml Balance -400 ml Laboratory Tests Test 01/26/20 04:50 Range/Units Hemoglobin 8.2 L 11.5-16.0 G/DL Hematocrit 26 L 35-52 % LLE--dressing intact. no calf tenderness. Neg Oumar's s/p L hip bipolar DC to [facility] with me in two weeks EFREN MEREDITH MD January 26, 2020 08:06
[2020-01-26 08:33] VITALS: BP 149/60
--- NOTE | 2020-01-26 10:35 | Physical Therapy Daily Note ---
PT Daily Note-Current Subjective Patient in bed pre tx, confused, anxious, has no complaints of pain when asked but obviously has pain in right leg during activity. Appearance Patient in recliner post tx with nurse call, phone, tray, chair alarm on. Mental Status Patient Orientation: Confused Attachments: Khalil Catheter Transfers SCALE: Activities may be completed with or without assistive devices. 0-Vttuxqgces-pmicoqw completes the activity by him/herself with no assistance from a helper. 5-Set-up or Clean-up Assistance-helper sets up or cleans up; patient completes activity. [place] assists only prior to or following the activity. 4-Supervision or Touching Assistance-helper provides verbal cues and/or touching/steadying and/or contact guard assistance as patient completes activity. Assistance may be provided throughout the activity or intermittently. 3-Partial/Moderate Assistance-helper does LESS THAN HALF the effort. [place] lifts, holds or supports trunk or limbs, but provides less than half the effort. 2-Substantial/Maximal Assistance-helper does MORE THAN HALF the effort. [place] lifts or holds trunk or limbs and provides more than half the effort. 3-Secuefwzt-rkygmc does ALL the effort. Patient does none of the effort to compl ete the activity. Or, the assistance of 2 or more helpers is required for the patient to complete the activity. If activity was not attempted, code reason: 7-Patient Refused. 9-Not Applicable-not attempted and the patient did not perform the activity before the current illness, exacerbation or injury. 10-Not Attempted due to Environmental Limitations-(lack of equipment, weather restraints, etc.). 88-Not Attempted due to Medical Conditions or Safety Concerns. Roll Left & Right (QC): 1 Lying to Sitting/Side of Bed(Q: 1 Sit to Stand (QC): 1 Chair/Swc-tq-Chkvt Xfer(QC): 1 Patient resists transfer to chair, yells during transfer. Weight Bearing Right Lower Extremity: Right Weight Bearing/Tolerated Left Lower Extremity: Left Weight Bearing/Tolerated Exercises Seated Therapy Exercises: Ankle pumps, Long arc quads Seated Reps: 10 (AAROM, patient will no follow directions but will assist some if you guide her.) Treatments bed mobility and transfers, LE exercise Assessment Current Status: Poor Progress dependent for mobility PT Short Term Goals Short Term Goals Time Frame: January 28, 2020 Sit to lyin Lying to sitting on side of be: 4 Sit to stand: 4 PT Correction Goals Smelter Charger Goals PT Smelter Charger Goals Time Frame: January 31, 2020 Roll Left & Right (QC): 4 Sit to Lying (QC): 4 Lying-Sitting on Side/Bed(QC): 4 Sit to Stand (QC): 4 Chair/Tpo-at-Oewhc Xfer(QC): 4 Toilet Transfer (QC): 4 Car Transfer (QC): 3 Does the Patient Walk: No and Walking Goal IS indicated Walk 10 feet (QC): 4 Walk 50ft with 2 Turns (QC): 4 Walk 150 ft (QC): 4 Walking 10ft on Uneven Surface: 9 1 Step (curb) (QC): 9 4 Steps (QC): 9 12 Steps (QC): 9 Picking up an Object (QC): 9 Does the Pt use WC or Scooter?: No Wheel 50 feet with 2 turns (QC: 3 Type: Manual Wheel 150 feet: 3 Type: Manual PT Plan Problem List Problem List: Activity Tolerance, Functional Strength, Safety, Balance, Gait, Transfer, Bed Mobility, ROM Treatment/Plan Treatment Plan: Continue Plan of Care Treatment Plan: Bed Mobility, Education, Functional Activity [place], Functional Strength, Group Therapy, Gait, Safety, Therapeutic Exercise, Transfers Treatment Duration: Feb 07, 2020 Frequency: 11 times per week Estimated Hrs Per Day: .25 hour per day Patient and/or Family Agrees t: Yes Safety Risks/Education Patient Education: Transfer Techniques, Correct Positioning, Safety Issues Teaching Recipient: Patient Teaching Methods: Demonstration, Discussion Response to Teaching: Reinforcement Needed Time/GCodes Time In: 1022 Time Out: 1032 Total Billed Treatment Time: 10 Total Billed Treatment 1 visit FA LAILA LERMA PT January 26, 2020 10:35
--- NOTE | 2020-01-26 11:54 | Discharge Summary ---
Discharge Summary Reconcile Patient Problems Problems Reviewed?: Yes Hospital Course Hospital Course Date of Admission: January 22, 2020 at 20:27 Admission Diagnosis : left femoral neck fracture Family Physician/Provider: Hali,Local Physician Date of Discharge: 01/26/20 Discharge Diagnosis: left femoral neck fracture, status post hip replacement Hospital Course: Ilene Sommer is a 75-year-old female with past medical history of hypertension, hypothyroidism, dementia, who presented from her fdc with hip pain and was found to have a left femoral neck fracture. Orthopedic surgery was consulted and she underwent hip replacement. She tolerated the procedure well without complication. Her other medical conditions remained stable including her severe dementia. She had anemia which remained stable. She should follow- up with Dr. Flowers in about a week. She should follow-up with Dr. Jordan in about 2 weeks. Labs and Pending Lab Test: Laboratory Tests 01/26/20 04:50: Hemoglobin 8.2L, Hematocrit 26L Microbiology 01/23/20 MRSA Screen - Final, Complete Home Meds Active Reported Tizanidine HCl 4 Mg Tablet 4 Mg PO HS Potassium Chloride 10 Meq Tab.er.prt 10 Meq PO 0800,1200 Famotidine 20 Mg Tablet 20 Mg PO DAILY Memantine HCl 10 Mg Tablet 10 Mg PO BID Furosemide 20 Mg Tablet 20 Mg PO 0800,1200 Levothyroxine Sodium 25 Mcg Tablet 25 Mcg PO DAILY Sertraline HCl 25 Mg Tablet 25 Mg PO DAILY Polyethylene Glycol 3350 17 Gm Powd.pack 17 Gm PO DAILY PRN PRN GIVE NEEDED FOR NO BM X 48 HOURS, GIVE DAILY UNTIL BM Muscle Rub Cream (Methyl Salicylate/Menthol) 113 Gm Cream..g. 1 Applic TP BID APPLY TO KNEE TOPICALLY TWO TIMES A DAY FOR PAIN Lisinopril 40 Mg Tablet 40 Mg PO DAILY NOTIFY PHYSICIAN IF BP < 80/50 OR > 180/110 OR PULSE < 50 OR > 110 Linzess (Linaclotide) 72 Mcg Capsule 72 Mcg PO DAILY Gabapentin 100 Mg Capsule 100 Mg PO DAILY Citracal-Vit D 200 mg-250 Tab (Calcium Citrate/Vitamin D3) 1 Each Tablet 1 Each PO DAILY Bisacodyl 10 Mg Supp.rect 10 Mg RC DAILY PRN PRN Tylenol (Acetaminophen) 325 Mg Tablet 650 Mg PO TID PRN Instructions to Patient/Family Assessment/Instructions take medications as prescribed. Participate in therapies. Straight catheter daily as needed. Follow-up with Dr. Flowers and Dr. Jordan. Follow Up Appt.: Dr. Flowers in about a week, Dr. Jordan in about two weeks Skilled NF Admit to: [facility] Certification (SNF) I certify that SNF services are required to be given on an inpatient basis because of the above named patient's need for custodial care on a continuing basis for the conditions(s) for which he/she was receiving inpatient hospital services prior to his/her transfer to the SNF. Oxygen Delivery Method: Room Air Discharge Diet: No Restrictions Daily Activity as Tolerated: Yes Resuscitation Status: Do Not Resuscitate Petrona Campbell January 26, 2020 11:49 Discharge Physical Exam General: Alert, No Acute Distress HEENT: Atraumatic, PERRLA, EOMI, Mucous Memb Moist/[place] Lungs: Clear to Auscultation, Normal Air Movement Heart: Regular Rate, Normal S1, Normal S2, No Murmurs Abdomen: Normal Bowel Sounds, Soft, No Tenderness Extremities: Normal Pulses, No Tenderness/Swelling Skin: No Rashes, No Significant Lesion Neuro: Normal Speech Psych/Mental Status: Mood NL, Other (disoriented, anxious, fidgety) PETRONA CAMPBELL MD January 26, 2020 11:54
--- NOTE | 2020-01-26 12:30 | NUR ---
JOY CATH REMOVED.
[2020-01-26] MEDS ORDERED: HYDR-83 PO (13:16)
--- NOTE | 2020-01-26 14:00 | NUR ---
INSTRUCTIONS CALLED TO [facility] ( [facility]YAM MALHOTRA ) THAT RUFINO WAS DC'D AT 12:30 PM AND TO [facility]. DAILY NEEDED
[2020-01-26 14:50] VITALS: BP 149/60
--- NOTE | 2020-01-26 14:50 | NUR ---
WILLIAM JACKSON demonstrates understanding of discharge instructions and accurately returns instructions upon questioning. Copy of Post-Discharge Instructions given to PT. WILLIAM JACKSON is able to manage continuing needs after discharge. Patients belongings returned to PT. Patient discharged from [facility] on 01/26/20 at 1450. WILLIAM JACKSON left floor via W/C, accompanied by STAFF AND [employer] EMPLOYEE PER [employer].
== END 2020-01-26 14:50 | DRG 956 ==
LOC: EDUNIT# 19:18 → ER 19:23 → 4TH 20:27
PROVIDERS: ADMIT Internal Medicine; ATTEND Internal Medicine
PROC: 0SRS01A Replacement of Left Hip Joint, Femoral Surface with Metal Synthetic Substitute, Uncemented, Open Approach (ICD-10-PCS; principal; 2020-01-23 14:00)
DX: S72.012A Unspecified intracapsular fracture of left femur, initial encounter for closed fracture (principal); S32.501A Unspecified fracture of right pubis, initial encounter for closed fracture; S32.502A Unspecified fracture of left pubis, initial encounter for closed fracture; D62 Acute posthemorrhagic anemia; R53.83 Other fatigue; G30.9 Alzheimer's disease, unspecified; F02.80 Dementia in other diseases classified elsewhere, unspecified severity, without behavioral disturbance, psychotic disturbance, mood disturbance, and anxiety; Z66 Do not resuscitate; I10 Essential (primary) hypertension; E03.9 Hypothyroidism, unspecified; X58.XXXA Exposure to other specified factors, initial encounter
CPT/HCPCS: 36415; 51702; 70450; 71045; 73501; 80048; 80053; 81000; 85014; 85018; 85025; 85027; 85610; 87081; 93005

== ENCOUNTER → 2020-12-28 | Outpatient (CLI) | payer MEDICARE ==
[~2020-12-28] MED LIST: ACET325T38 PO; ACHD5005 PO; BISA10SU8 RC; CALC-147 PO; FAMO-119 PO; FAMO-144 PO; FAMO20TA3 PO; FAMO20TA5 PO; FURO-125 PO; FURO20TA4 PO; GABA-486 PO; LEVO25TA2 PO; LEVO25TA5 PO; LINA72CA PO; LISI40TA9 PO; MEMA10TA2 PO; MEMA10TA57 PO; METH113C21 TP; POLY17PO54 PO; POTA10CA43 PO; POTA10TA36 PO; SERT-412 PO; TIZA-169 PO; TIZA4TAB4 PO
--- NOTE | 2020-12-28 13:04 | Diagnostic Imaging Report ---
INDICATION: Postmenopausal state COMPARISON: None available FINDINGS: AP Spine L1-L4: [BMD (g/cm2): 0.565] [T-Score: -5.3] [Z-Score: -3.2] [BMD Previous: na] [BMD % Change: na] LT Hip Neck: [BMD (g/cm2): na] [T-Score: na] [Z-Score: na] LT Hip Total: [BMD (g/cm2):na] [T-Score:na] [Z-Score: na] [BMD Previous: na] [BMD % Change: na] RT Hip Neck: [BMD (g/cm2):0.525] [T-Score:-3.7] [Z-Score:-1.5] RT Hip Total: [BMD (g/cm2):0.444] [T-score:-4.5] [Z-Score:-2.4] [BMD Previous:na] [BMD % Change:na] *Indicates significant change from prior examination based on 95% confidence level. World Health Organization criteria for BMD interpretation classify patients as Normal (T-score at or above -1.0), Osteopenic (T-score between -1.0 and -2.5) or Osteoporotic (T-score at or below -2.5). LIMITATIONS AND MODIFICATION: The left hip was not evaluated secondary to postsurgical changes. IMPRESSION: 1. Severe osteoporosis 2. Baseline examination. 3. See below National Osteoporosis Foundation guidelines on when to potentially initiate pharmacologic therapy. Based on the National Osteoporosis Foundation Guidelines, pharmacologic treatment should be initiated in any of the following, unless clinical conditions suggest otherwise: * Any patient with prior fragility fracture of the hip or vertebrae. A spine fracture indicates 5X risk for subsequent spine fracture and 2X risk for subsequent hip fracture. * Osteoporosis (T-score <-2.5). * Postmenopausal women and men age 50 and older with low bone mass/osteopenia (T-score between -1.0 and -2.5) by DXA and 10-year major osteoporotic fracture greater than 20% or a 10-year probability of hip fracture greater than 3%. These fracture risks are supplied above in the FRAX score, if applicable. * Clinician judgement and/or patient preferences may indicate treatment for people with 10-year fracture probabilities above or below these levels. Dictated by: Dictated on workstation # [id number]
== END ==
LOC: RAD 09:41
PROVIDERS: ATTEND Nurse Practitioner Family
DX: M81.0 Age-related osteoporosis without current pathological fracture (principal); T14.8XXA Other injury of unspecified body region, initial encounter; Z78.0 Asymptomatic menopausal state; Z91.81 History of falling
CPT/HCPCS: 77080

== ENCOUNTER 2022-02-22 10:59 | Inpatient (IN) | payer MEDICARE ==
[~2022-02-22] VITALS: Ht 157 cm; Wt 68.5 kg
[~2022-02-22 10:59] MED LIST changes: -POTA10TA36 PO; +POTA10TA37 PO; +TIZA-186 PO; -TIZA4TAB4 PO
--- NOTE | 2022-02-22 11:11 | ED Fall/Injury ---
General Stated Complaint: FALL Source: patient, EMS Exam Limitations: clinical condition (dementia) History of Present Illness Date Seen by Provider: Feb 22, 2022 Time Seen by Provider: 10:49 Initial Comments Unwitnessed fall per EMS at [facility] last seen about an hour prior. No nausea vomiting shortness of air or chest pain. She has shortening and rotation of her right hip. She has some tenderness in her neck so a c-collar was placed. She is not complaining of any weakness. She has significant history of Alzheimer's dementia. She denies pain anywhere else besides her hip. relates that she had a right clavicle fracture 2 years ago, 1-1/2 years ago she had a right shoulder fractured. She also had her left shoulder fracture a year ago. All of these have been allowed to heal without surgical intervention. Allergies and Home Medications Allergies Coded Allergies: amoxicillin (Verified Allergy, Unknown, 01/22/20) Patient Home Medication List Home Medication List Reviewed: Yes Acetaminophen (Tylenol) 325 Mg Tablet, 650 MG PO TID PRN for PAIN-MILD (1-4), (Reported) Entered as Reported by: BEATRICE FOSTER on 01/23/20 0208 Bisacodyl (Bisacodyl) 10 Mg Supp.rect, 10 MG RC DAILY PRN PRN for CONSTIPATION-1 ST LINE, (Reported) Entered as Reported by: BEATRICE FOSTER on 01/23/20 0238 Calcium Citrate/Vitamin D3 (Citracal-Vit D 200 mg-250 Tab) 1 Each Tablet, 1 EACH PO DAILY, (Reported) Entered as Reported by: BEATRICE FOSTER on 01/23/20 0238 Famotidine (Famotidine) 20 Mg Tablet, 20 MG PO DAILY, (Reported) Entered as Reported by: BEATRICE FOSTER on 01/23/20 0324 Furosemide (Furosemide) 20 Mg Tablet, 20 MG PO 0800,1200, (Reported) Entered as Reported by: BEATRICE FOSTER on 01/23/20 0254 Gabapentin (Gabapentin) 100 Mg Capsule, 100 MG PO DAILY, (Reported) Entered as Reported by: BEATRICE FOSTER on 01/23/20 0238 Hydrocodone/Acetaminophen (Hydrocodone-Acetamin 5-325 mg) 1 Each Tablet, 1 EACH PO Q4H PRN for PAIN-SEVERE (8-10) Prescribed by: ETTA CAMPBELL on 01/26/20 1316 Levothyroxine Sodium (Levothyroxine Sodium) 25 Mcg Tablet, 25 MCG PO DAILY, (Reported) Entered as Reported by: BEATRICE FOSTER on 01/23/20 0253 Linaclotide (Linzess) 72 Mcg Capsule, 72 MCG PO DAILY, (Reported) Entered as Reported by: BEATRICE FOSTER on 01/23/20 0244 Lisinopril (Lisinopril) 40 Mg Tablet, 40 MG PO DAILY, (Reported) Entered as Reported by: BEATRICE FOSTER on 01/23/20 024 Memantine HCl (Memantine HCl) 10 Mg Tablet, 10 MG PO BID, (Reported) Entered as Reported by: BEATRICE FOSTER on 01/23/20 0315 Methyl Salicylate/Menthol (Muscle Rub Cream) 113 Gm Cream..g., 1 APPLIC TP BID, (Reported) Entered as Reported by: BEATRICE FOSTER on 01/23/20 024 Polyethylene Glycol 3350 (Polyethylene Glycol 3350) 17 Gm Powd.pack, 17 GM PO DAILY PRN PRN for CONSTIPATION-2ND LINE, (Reported) Entered as Reported by: BEATRICE FOSTER on 01/23/20 024 Potassium Chloride (Potassium Chloride) 10 Meq Tab.er.prt, 10 MEQ PO 0800,1200, (Reported) Entered as Reported by: BEATRICE FOSTER on 01/23/20 0328 Sertraline HCl (Sertraline HCl) 25 Mg Tablet, 25 MG PO DAILY, (Reported) Entered as Reported by: BEATRICE FOSTER on 01/23/20 024 Tizanidine HCl (Tizanidine HCl) 4 Mg Tablet, 4 MG PO HS, (Reported) Entered as Reported by: BEATRICE FOSTER on 01/23/20 033 Review of Systems Review of Systems Constitutional: No chills, No diaphoresis Eyes: Denies Blindness, Denies Blurred Vision Ears, Nose, Mouth, Throat: denies ear pain, denies ear discharge Respiratory: No cough, No short of breath Cardiovascular: No chest pain, No edema Gastrointestinal: No abdominal pain, No nausea, No vomiting Genitourinary: No discharge, No dysuria Musculoskeletal: see HPI; No back pain; joint pain All Other Systems Reviewed Negative Unless Noted: Yes Past Wfuobin-Ngjftj-Grmqwt Hx Past Medical History Surgeries: Yes (left hip fracture 01/22/20) Orthopedic Respiratory: No Cardiac: Yes High Cholesterol, Hypertension Neurological: Yes Dementia Genitourinary: No Gastrointestinal: Yes Gastroesophageal Reflux, Chronic Constipation Musculoskeletal: No Endocrine: Yes Hypothyroidsim HEENT: No Cancer: No Psychosocial: Yes Anxiety Integumentary: No Blood Disorders: No Physical Exam Vital Signs Vital Signs - First Documented 02/22/22 11:00 Temp 36.7 Pulse 98 Resp 22 B/P (MAP) 132/75 (94) Pulse Ox 95 Capillary Refill : Height, Weight, BMI Height: '" Weight: lbs. oz. kg; 20.89 BMI Method: General Appearance: WD/WN, mild distress HEENT: PERRL/EOMI, normal ENT inspection (3 mm reactive symmetric), TMs normal (Negative for hemotympanum or guidry sign); No pharynx normal (Mildly dry oral mucosa) Neck: full range of motion, supple, normal inspection Cardiovascular: normal peripheral pulses, regular rate, rhythm Respiratory: lungs clear, normal breath sounds, no respiratory distress, no accessory muscle use Peripheral Pulses: 1+ Dorsalis Pedis (R), 1+ Left Dors-Pedis (L) Gastrointestinal: normal bowel sounds, non tender, soft, no organomegaly Extremities: other (Tenderness over the right hip with external rotation and shortening of the right lower extremity. Range of motion of the left hip and leg normal. Knees nontender. Bilateral shoulders elbows and wrists nontender to palpation.) Neurologic/Psychiatric: alert, other (Anxious affect, oriented to self) Skin: normal color, warm/dry Worth Coma Score Best Eye Response: (4) Open Spontaneously Best Verbal Response: (4) Confused Conversation Best Motor Response: (6) Obeys Commands [place] Total: 14 Progress/Results/Core Measures Results/Orders Lab Results Laboratory Tests Test 02/22/22 11:21 Range/Units White Blood Count 12.3 H 4.3-11.0 10^3/uL Red Blood Count 4.38 3.80-5.11 10^6/uL Hemoglobin 12.3 11.5-16.0 g/dL Hematocrit 39 35-52 % Mean Corpuscular Volume 89 80-99 fL Mean Corpuscular Hemoglobin 28 25-34 pg Mean Corpuscular Hemoglobin Concent 32 32-36 g/dL Red Cell Distribution Width 14.7 H 10.0-14.5 % Platelet Count 290 130-400 10^3/uL Mean Platelet Volume 10.1 9.0-12.2 fL Immature Granulocyte % (Auto) 0 % Neutrophils (%) (Auto) 80 H 42-75 % Lymphocytes (%) (Auto) 13 12-44 % Monocytes (%) (Auto) 6 0-12 % Eosinophils (%) (Auto) 0 0-10 % Basophils (%) (Auto) 1 0-10 % Neutrophils # (Auto) 9.9 H 1.8-7.8 10^3/uL Lymphocytes # (Auto) 1.6 1.0-4.0 10^3/uL Monocytes # (Auto) 0.7 0.0-1.0 10^3/uL Eosinophils # (Auto) 0.0 0.0-0.3 10^3/uL Basophils # (Auto) 0.1 0.0-0.1 10^3/uL Immature Granulocyte # (Auto) 0.1 0.0-0.1 10^3/uL Prothrombin Time 12.6 12.2-14.7 SEC INR Comment 0.9 0.8-1.4 Sodium Level 142 135-145 MMOL/L Potassium Level 4.1 3.6-5.0 MMOL/L Chloride Level 107 98-107 MMOL/L Carbon Dioxide Level 23 21-32 MMOL/L Anion Gap 12 5-14 MMOL/L Blood Urea Nitrogen 17 7-18 MG/DL Creatinine 0.96 0.60-1.30 MG/DL Estimat Glomerular Filtration Rate 61 BUN/Creatinine Ratio 18 Glucose Level 152 H 70-105 MG/DL Calcium Level 9.5 8.5-10.1 MG/DL Corrected Calcium 9.3 8.5-10.1 MG/DL Total Bilirubin 0.4 0.1-1.0 MG/DL Aspartate Amino Transf (AST/SGOT) 18 5-34 U/L Alanine Aminotransferase (ALT/SGPT) 25 0-55 U/L Alkaline Phosphatase 75 40-136 U/L Total Protein 7.5 6.4-8.2 GM/DL Albumin 4.2 3.2-4.5 GM/DL My Orders Orders - CODY BLUM Ct Head/Cervical Spine Wo (02/22/22 11:07) Chest 1 View, Ap/Pa Only (02/22/22 11:07) Ed Iv/Invasive Line Start (02/22/22 11:07) Ns Iv 500 Ml (Sodium Chloride 0.9%) (02/22/22 11:15) Catheter(Urinary) Insert & Ass 03,15 (02/22/22 11:07) Ua Culture If Indicated (02/22/22 11:07) Cbc With Automated Diff (02/22/22 11:07) Comprehensive Metabolic Panel (02/22/22 11:07) Ekg Tracing (02/22/22 11:07) Continuous Ekg Monitoring (02/22/22 11:07) Protime With Inr (02/22/22 11:09) Fentanyl Inj (Sublimaze Injection) (02/22/22 11:30) Fentanyl Inj (Sublimaze Injection) (02/22/22 11:26) Pelvis/Mana Hips 5> Views (02/22/22 11:07) Lorazepam Injection (Ativan Injection) (02/22/22 11:45) Medications Given in ED Current Medications Medications Dose Ordered Sig/Nico Route Start Time Stop Time Status Last Admin Dose Admin Fentanyl Citrate 50 mcg ONCE ONCE IVP 02/22/22 11:30 02/22/22 11:31 DC 02/22/22 11:33 50 MCG Lorazepam 0.5 mg ONCE ONCE IVP 02/22/22 11:45 02/22/22 11:46 DC 02/22/22 12:31 0.5 MG Sodium Chloride 500 ml @ 0 mls/hr Q0M ONCE IV 02/22/22 11:15 02/22/22 11:16 DC 02/22/22 11:33 0 MLS/HR Vital Signs/I&O 02/22/22 11:00 Temp 36.7 Pulse 98 Resp 22 B/P (MAP) 132/75 (94) Pulse Ox 95 Progress Progress Note #1: Time: 11:37 Progress Note Patient still having some pain with movement and anxiety complicated by her dementia so in addition to the 50 mcg of fentanyl we give her half a milligram of Ativan. Plain films including CT of the head and C-spine. Progress Note #2: Time: 12:40 Progress Note C-collar cleared clinically and radiographically. Patient is still comfortable and does not want a thing else for pain at this time. Initial ECG Impression Date: Feb 22, 2022 Initial ECG Impression Time: 11:29 Initial ECG Rate: 59 Initial ECG Rhythm: Normal Sinus Initial ECG Intervals: Normal Initial ECG Impression: Normal Comment Normal sinus rhythm without clinically relevant ST elevation or depression. Diagnostic Imaging Diagonstic Imaging: Xray Plain Films/CT/US/NM/MRI: chest [facility] [place], [place] NAME: WILLIAM JACKSON [facility] REC#: [id number] PT STATUS: REG ER : 1945 PHYSICIAN: CODY BLUM MD ADMIT DATE: 02/22/22/ER Draft Date of Exam:02/22/22 CHEST 1 VIEW, AP/PA ONLY Indication: Fall, pain COMPARISON: 01/22/2020 TECHNIQUE: Single frontal radiograph of the chest dated 02/22/2022 FINDINGS: The cardiac silhouette is stable from the prior examination. Prominence of the superior mediastinum, similar to the prior examination and accentuated by significant patient rotation. No significant pulmonary vascular congestion. Background chronic interstitial lung changes are again identified. Chronic elevation right hemidiaphragm. Persistent mild bibasilar scarring. Low lung volumes. No new focal pulmonary opacity. No significant pleural effusion. No pneumothorax. Irregularity of the distal right clavicle is identified. Scattered osseous degenerative changes. IMPRESSION: Questionable fracturing of the distal right clavicle. Recommend correlation for focal pain at this location. If there is clinical concern for this location, then dedicated radiographs of the right clavicle would be recommended. Cortical irregularity involving the left humeral neck, concerning for fracture. Recommend dedicated radiographs of the left shoulder. Low lung volumes with background chronic interstitial lung changes with associated bibasilar scarring and/or atelectasis. Report was faxed and called to nurse Abner Garcia by martha at 12:40pm. Dictated on workstation # [id number] Dict: 02/22/22 1222 Trans: 02/22/22 1239 [id number] Interpreted by: ABDOUL LEMA MD Electronically signed by: Reviewed: Reviewed by Ma Diagonstic Imaging: Xray Plain Films/CT/US/NM/MRI: pelvis, hip (Bilateral) Comments [facility] [place] [place] NAME: WILL[facility] JACKSON [facility] REC#: [id number] PT STATUS: ADM IN : 1945 PHYSICIAN: CODY BLUM MD ADMIT DATE: 02/22/22/4TH Draft Date of Exam:02/22/22 PELVIS/MANA HIPS 5> VIEWS INDICATION: Fall and hip pain. TIME OF EXAM: 11:52 a.m. TECHNIQUE: AP view of the pelvis as well as two views of each hip were obtained. FINDINGS: There is an acute intertrochanteric fracture of the right hip. Femoroacetabular alignment is normal. There are postop changes of left hip arthroplasty. Prosthetic elements are in good position. IMPRESSION: Intertrochanteric right hip fracture. Dictated on workstation # [id number] Dict: 02/22/22 1300 Trans: 02/22/22 1306 [id number] Interpreted by: DERIC BOWLING MD Electronically signed by: Reviewed: Reviewed by Ma Diagonstic Imaging: CT Plain Films/CT/US/NM/MRI: c-spine, head Comments [facility] [place] [place] NAME: [facility] JACKSON [facility] REC#: [id number] PT STATUS: REG ER : 1945 PHYSICIAN: CODY BLUM MD ADMIT DATE: 02/22/22/ER Draft Date of Exam:02/22/22 CT HEAD/CERVICAL SPINE WO CLINICAL INDICATION: Patient status post trauma. EXAM: Head CT without IV contrast with sagittal and coronal reformations. Axial CT scan of the cervical spine with sagittal and coronal reformations. Auto Exposure Controls were utilized during the CT exam to meet ALARA standards for radiation dose reduction. COMPARISON: Head CT without contrast dated 01/22/2020. FINDINGS: There is motion artifact limiting evaluation of portions of this exam. Head CT: There is no evidence of acute cerebral infarct, intracranial hemorrhage, or gross mass effect. There is diffuse brain parenchymal volume loss with the temporal lobes affected the most. There are multiple focal and patchy areas of low density involving both cerebral hemispheres, likely representing chronic small vessel ischemic disease and leukoaraiosis. There is normal franco-white matter distinction. There is no significant midline shift or herniation. There is no evidence of hydrocephalus. The basal cisterns are unremarkable. The skull, extracranial soft tissue, and orbits are unremarkable. There is minimal mucosal thickening involving the ethmoid sinus. Temporal bones show no significant abnormality. Cervical spine: There is no evidence of acute cervical spine fracture. There are degenerative spurs involving the cervical spine and facet arthropathy. There is grade 1 anterolisthesis of C4 on C5 and C5 on C6 with no pars defect. There is no significant neck soft tissue abnormality. There is atelectasis involving both upper lobes. IMPRESSION: 1: There is no evidence of acute intracranial process. There is no intracranial hemorrhage or skull fracture. 2: There is no acute cervical spine fracture. Dictated on workstation # [id number] Dict: 02/22/22 1224 Trans: 02/22/22 1235 [id number] Interpreted by: FEDERICA PUENTE MD Electronically signed by: Reviewed: Reviewed by Me Departure Communication (Admissions) Time/Spoke to Admitting Phy: 12:[address] Campbell who agrees to admit the patient with consult to orthopedic surgery. Time/Spoke to Consulting Phy: 12:15 Discussed the case with Dr. Ramos who agrees to take the patient to the OR in the morning for right hip fracture. N.p.o. after midnight. Impression Primary Impression: Closed right hip fracture Qualified Codes: S72.001A - Fracture of unspecified part of neck of right femur, initial encounter for closed fracture Additional Impression: Fall Qualified Codes: W19.XXXA - Unspecified fall, initial encounter Disposition: ADMITTED INPATIENT Condition: Stable Admissions Decision to Admit Reason: Admit from ER (General) Decision to Admit/Date: Feb 22, 2022 Time/Decision to Admit Time: 12:10 Departure-Patient Inst. Referrals: YIN KIMBLE MD (PCP/Family) Primary Care Physician CODY BLUM Feb 22, 2022 11:11
[2022-02-22] MEDS ORDERED: NS IV 500 ML 500 ML IV ONE (11:15)
[2022-02-22] MEDS ORDERED: fentaNYL INJ 100 MCG/2 ML AMP ONE (11:26)
[2022-02-22 11:30] LABS: BASOPHILS # (AUTO) 0.1 10^3/uL (0.0-0.1); BASOPHILS % (AUTO) 1 % (0-10); EOSINOPHILS % (AUTO) 0 % (0-10); HEMATOCRIT 39 % (35-52); HEMOGLOBIN 12.3 g/dL (11.5-16.0); LYMPHOCYTES # (AUTO) 1.6 10^3/uL (1.0-4.0); LYMPHOCYTES % (AUTO) 13 % (12-44); MEAN CORPUSCULAR HEMOGLOBIN 28 pg (25-34); MEAN CORPUSCULAR HGB CONC 32 g/dL (32-36); MEAN CORPUSCULAR VOLUME 89 fL (80-99); MEAN PLATELET VOLUME 10.1 fL (9.0-12.2); MONOCYTES # (AUTO) 0.7 10^3/uL (0.0-1.0); MONOCYTES % (AUTO) 6 % (0-12); NEUTROPHILS # (AUTO) 9.9 10^3/uL (1.8-7.8); NEUTROPHILS % (AUTO) 80 % (42-75); PLATELET COUNT 290 10^3/uL (130-400); WHITE BLOOD COUNT 12.3 10^3/uL (4.3-11.0)
[2022-02-22] MEDS ORDERED: fentaNYL INJ 100 MCG/2 ML AMP IVP ONE (11:30)
[2022-02-22 11:39] LABS: ALBUMIN 4.2 GM/DL (3.2-4.5); POTASSIUM 4.1 MMOL/L (3.6-5.0)
[2022-02-22 11:40] LABS: CALCIUM 9.5 MG/DL (8.5-10.1); INR 0.9 (0.8-1.4); PROTHROMBIN TIME PATIENT 12.6 SEC (12.2-14.7)
[2022-02-22 11:42] LABS: TOTAL PROTEIN 7.5 GM/DL (6.4-8.2)
[2022-02-22 11:43] LABS: BILIRUBIN,TOTAL 0.4 MG/DL (0.1-1.0)
[2022-02-22 11:45] LABS: CREATININE SERUM 0.96 MG/DL (0.60-1.30)
[2022-02-22] MEDS ORDERED: LORazepam INJ 2 MG/ML (ATIVAN) VIAL IVP ONE (11:45)
[2022-02-22 12:35] LABS: BILIRUBIN,URINE NEGATIVE (NEGATIVE); CLARITY,URINE CLEAR; COLOR,URINE YELLOW; GLUCOSE, URINE (UA) NEGATIVE (NEGATIVE); KETONES,URINE NEGATIVE (NEGATIVE); LEUKOCYTE ESTERASE ,URINE NEGATIVE (NEGATIVE); NITRITE,URINE NEGATIVE (NEGATIVE); PH,URINE 7.5 (5-9); PROTEIN,URINE NEGATIVE (NEGATIVE)
--- NOTE | 2022-02-22 12:36 | Diagnostic Imaging Report ---
CLINICAL INDICATION: Patient status post trauma. EXAM: Head CT without IV contrast with sagittal and coronal reformations. Axial CT scan of the cervical spine with sagittal and coronal reformations. Auto Exposure Controls were utilized during the CT exam to meet ALARA standards for radiation dose reduction. COMPARISON: Head CT without contrast dated 01/22/2020. FINDINGS: There is motion artifact limiting evaluation of portions of this exam. Head CT: There is no evidence of acute cerebral infarct, intracranial hemorrhage, or gross mass effect. There is diffuse brain parenchymal volume loss with the temporal lobes affected the most. There are multiple focal and patchy areas of low density involving both cerebral hemispheres, likely representing chronic small vessel ischemic disease and leukoaraiosis. There is normal franco-white matter distinction. There is no significant midline shift or herniation. There is no evidence of hydrocephalus. The basal cisterns are unremarkable. The skull, extracranial soft tissue, and orbits are unremarkable. There is minimal mucosal thickening involving the ethmoid sinus. Temporal bones show no significant abnormality. Cervical spine: There is no evidence of acute cervical spine fracture. There are degenerative spurs involving the cervical spine and facet arthropathy. There is grade 1 anterolisthesis of C4 on C5 and C5 on C6 with no pars defect. There is no significant neck soft tissue abnormality. There is atelectasis involving both upper lobes. IMPRESSION: 1: There is no evidence of acute intracranial process. There is no intracranial hemorrhage or skull fracture. 2: There is no acute cervical spine fracture. Dictated by: Dictated on workstation # [id number]
--- NOTE | 2022-02-22 12:40 | Diagnostic Imaging Report ---
Indication: Fall, pain COMPARISON: 01/22/2020 TECHNIQUE: Single frontal radiograph of the chest dated 02/22/2022 FINDINGS: The cardiac silhouette is stable from the prior examination. Prominence of the superior mediastinum, similar to the prior examination and accentuated by significant patient rotation. No significant pulmonary vascular congestion. Background chronic interstitial lung changes are again identified. Chronic elevation right hemidiaphragm. Persistent mild bibasilar scarring. Low lung volumes. No new focal pulmonary opacity. No significant pleural effusion. No pneumothorax. Irregularity of the distal right clavicle is identified. Cortical irregularity and offset of the proximal left humerus also noted. Scattered osseous degenerative changes. IMPRESSION: Questionable fracturing of the distal right clavicle. Recommend correlation for focal pain at this location. If there is clinical concern for this location, then dedicated radiographs of the right clavicle would be recommended. Cortical irregularity involving the left humeral neck, concerning for fracture. Recommend dedicated radiographs of the left shoulder. Low lung volumes with background chronic interstitial lung changes with associated bibasilar scarring and/or atelectasis. Report was faxed and called to nurse Abner Garcia by [email or web address] at 12:40pm. Dictated by: Dictated on workstation # [id number]
[2022-02-22 12:50] LABS: BACTERIA,URINE NEGATIVE /HPF; WBC,URINE RARE /HPF
[2022-02-22 12:51] LABS: HYALINE CASTS, URINE RARE /LPF
--- NOTE | 2022-02-22 13:06 | Diagnostic Imaging Report ---
INDICATION: Fall and hip pain. TIME OF EXAM: 11:52 a.m. TECHNIQUE: AP view of the pelvis as well as two views of each hip were obtained. FINDINGS: There is an acute intertrochanteric fracture of the right hip. Femoroacetabular alignment is normal. There are postop changes of left hip arthroplasty. Prosthetic elements are in good position. IMPRESSION: Intertrochanteric right hip fracture. Dictated by: Dictated on workstation # [id number]
[2022-02-22 14:18] VITALS: BP 155/72
[2022-02-22] MEDS ORDERED: LACTATED RINGERS 1,000 ML IV PRN (14:30)
[2022-02-22] MEDS ORDERED: ONDANSETRON 4 MG/2 ML (SDV) Z0FRAN IVP PRN (15:00)
[2022-02-22] MEDS ORDERED: morphine INJ 4 MG/ML 1 ML (VIAL/SYRINGE) IVP PRN (15:00)
[2022-02-22] MEDS ORDERED: CATHETER FLUSH 10 ML SYR IV PRN (15:00)
[2022-02-22 15:06] VITALS: BP 142/69
[2022-02-22] MEDS ORDERED: ACET325T38 PO (15:23)
[2022-02-22] MEDS ORDERED: TIZA-169 PO (15:23)
[2022-02-22] MEDS ORDERED: ATOR10TA PO (15:23)
[2022-02-22] MEDS ORDERED: ACHD5005 PO (15:23)
[2022-02-22] MEDS ORDERED: MELA3TAB39 PO (15:23)
[2022-02-22] MEDS ORDERED: MINE15DR4 OU (15:23)
[2022-02-22] MEDS ORDERED: ALEN70TA2 PO (15:23)
[2022-02-22] MEDS: fentaNYL INJ 100 MCG/2 ML AMP IVP PRN ×2 (18:24→21:27)
[2022-02-22] MEDS: CATHETER FLUSH 10 ML SYR IV SCH (19:34)
[2022-02-22] MEDS ORDERED: ANTACID SUSP 30 ML UDC (MYLANTA) PO PRN (20:00)
[2022-02-22] MEDS ORDERED: ACETAMINOPHEN 325 MG TABLET PO PRN (20:00)
[2022-02-22] MEDS ORDERED: MELATONIN 3 MG TABLET PO PRN (20:00)
[2022-02-22] MEDS ORDERED: polyethylene glycoL POWDER 17 GM (MIRALAX) PACK PO PRN (20:00)
--- NOTE | 2022-02-22 20:11 | History & Physical-Hospitalist ---
History of Present Illness HPI/Chief Complaint Ilene Sommer is a 77 year old female with PMH Alzheimer's dementia, HTN, HLD, GERD, osteoporosis, hypothyroidism, who presented after an unwitnessed fall. She lives at [facility]. She is a poor historian due to her dementia. She denies pain. She denies shortness of breath. She has no complaints. She is confu sed. Source: patient Exam Limitations: clinical condition Date Seen 02/22/22 Time Seen by a Provider: 13:45 Attending Physician Elijah Flowers MD PCP Admitting Physician: Etta Campbell MD Attending Physician: Etta Campbell MD Referring Physician Date of Admission Feb 22, 2022 at 12:17 Home Medications & Allergies Home Medications Reviewed patient Home Medication Reconciliation performed by pharmacy medication reconciliations audio visual technician and/or nursing. Patients Allergies have been reviewed. Allergies Allergies Coded Allergies amoxicillin (Verified Allergy, Unknown, 01/22/20) Past Ofowfpi-Slmpzu-Qxltzp Hx Patient Social History Tobacco Use?: No Smoking Status: Unknown if Ever Smoked Smokeless Tobacco Frequency: Unknown if Ever Used Use of E-Cig and/or Vaping dev: No Use of E-Cig and/or Vaping Boaz: Unknown if Ever Used Substance use?: No Alcohol Use?: No Pt feels they are or have been: No Immunizations Up To Date Date of Influenza Vaccine: Feb 13, 2020 First/Initial COVID19 Vaccinat: UP TO DATE Second COVID19 Vaccination Mohamud: UP TO DATE Date of Pneumonia Vaccine: Jun 06, 2019 Current Status status: No Advance Directives: Yes Primary Language: Urdu Preferred Spoken Language: Urdu Is interpretation needed?: No Sensory deficits: Vision impairment Implanted or Applied Medical D: Orthopedic hardware Past Medical History Surgeries: Orthopedic High Cholesterol, Hypertension Dementia Gastroesophageal Reflux, Chronic Constipation Hypothyroidsim Anxiety Blood Disorders: No Family Medical History No Pertinent Family Hx Review of Systems Constitutional: no symptoms reported, see HPI Physical Exam Physical Exam Vital Signs Vital Signs - First Documented 02/22/22 02/22/22 11:00 14:04 Temp 36.7 Pulse 98 Resp 22 B/P (MAP) 132/75 (94) Pulse Ox 95 O2 Delivery Room Air Capillary Refill : Height, Weight, BMI Height: '" Weight: lbs. oz. kg; 27.79 BMI Method: General Appearance: No Apparent Distress, WD/WN HEENT: PERRL/EOMI, Pharynx Normal Neck: Normal Inspection, Supple Respiratory: Lungs Clear, No Respiratory Distress Cardiovascular: Regular Rate, Rhythm Gastrointestinal: Normal Bowel Sounds, Non Tender, Soft Extremity: Normal Inspection, Non Tender, No Pedal Edema Neurologic/Psychiatric: Alert, Disoriented, Motor Weakness Skin: Warm/Dry, Pallor Results Results/Procedures Labs Laboratory Tests 02/22/22 11:21 Patient resulted labs reviewed. Imaging: Reviewed Imaging Report Assessment/Plan Admission Diagnosis Closed right hip fracture Admission Status: Inpatient Order (span 2 midnights) Reason for Inpatient Admission: Hip surgery Assessment and Plan Closed right hip fracture Fall at ground level Osteoporosis XR consistent with hip fracture Ortho consulted Planning for surgery tomorrow RCRI appears to be 0, low risk patient for intermediate risk procedure Pain regimen Bowel regimen PT/OT after surgery Alzheimer's dementia High risk for perioperative delirium Monitor and avoid delirium triggers HTN HLD GERD Hypothyrodism Continue home meds DVT prophylaxis: Lovenox Diagnosis/Problems Diagnosis/Problems (1) Closed right hip fracture Status: Acute Qualifiers: Encounter type: initial encounter Qualified Codes: S72.001A - Fracture of unspecified part of neck of right femur, initial encounter for closed fracture (2) Fall Status: Acute Qualifiers: Encounter type: initial encounter Qualified Codes: W19.XXXA - Unspecified fall, initial encounter (3) HTN (hypertension) Status: Chronic (4) HLD (hyperlipidemia) Status: Chronic (5) Hypothyroidism Status: Chronic (6) GERD (gastroesophageal reflux disease) Status: Chronic (7) Alzheimer's dementia Status: Chronic (8) Osteoporosis Status: Chronic Qualifiers: Osteoporosis type: age-related Presence of current pathological fracture: with current pathological fracture Encounter type: initial encounter Qualified Codes: M80.00XA - Age-related osteoporosis with current pathological fracture, unspecified site, initial encounter for fracture ETTA CAMPBELL MD Feb 22, 2022 20:11
[2022-02-22 20:30] VITALS: BP 144/67
[2022-02-22] MEDS: DOCUSATE SODIUM 100 MG (COLACE) CAP PO SCH (22:00)
[2022-02-22] MEDS: SENNOSIDES 8.6 MG (SENOKOT) TAB PO SCH (22:01)
[2022-02-22 23:21] VITALS: BP 152/65
[2022-02-23] VITALS (11 sets, daily range): BP systolic 109–167; BP diastolic 61–101
[2022-02-23] MEDS: fentaNYL INJ 100 MCG/2 ML AMP IVP PRN ×5 (02:51→20:55)
[2022-02-23] MEDS: CATHETER FLUSH 10 ML SYR IV SCH ×3 (05:40→23:07)
[2022-02-23 06:09] LABS: BASOPHILS % (AUTO) 0 % (0-10); EOSINOPHILS % (AUTO) 0 % (0-10); HEMATOCRIT 37 % (35-52); HEMOGLOBIN 11.3 g/dL (11.5-16.0); LYMPHOCYTES # (AUTO) 1.2 10^3/uL (1.0-4.0); LYMPHOCYTES % (AUTO) 10 % (12-44); MEAN CORPUSCULAR HEMOGLOBIN 28 pg (25-34); MEAN CORPUSCULAR HGB CONC 31 g/dL (32-36); MEAN CORPUSCULAR VOLUME 91 fL (80-99); MEAN PLATELET VOLUME 10.7 fL (9.0-12.2); MONOCYTES # (AUTO) 0.9 10^3/uL (0.0-1.0); MONOCYTES % (AUTO) 8 % (0-12); NEUTROPHILS % (AUTO) 82 % (42-75); PLATELET COUNT 263 10^3/uL (130-400); WHITE BLOOD COUNT 12.2 10^3/uL (4.3-11.0)
[2022-02-23 06:21] LABS: POTASSIUM 3.7 MMOL/L (3.6-5.0)
[2022-02-23 06:22] LABS: CALCIUM 9.2 MG/DL (8.5-10.1)
[2022-02-23 06:27] LABS: CREATININE SERUM 0.73 MG/DL (0.60-1.30)
[2022-02-23] MEDS ORDERED: NEO/POLY/BAC (NEOSPORIN) OINT 15 GM TUBE ONE (08:14)
--- NOTE | 2022-02-23 08:19 | Diagnostic Imaging Report ---
INDICATION: Shortness of breath. Study compared 02/22/2022. FINDINGS: Limited inspiratory volume with some perihilar atelectasis and crowding of the lung markings very similar to the prior study. No effusion or pneumothorax. Deformities to the distal 3rd of the right clavicle redemonstrated as well as irregularities of the contralateral left humeral head unchanged. IMPRESSION: Redemonstration of limited inspiration zones of atelectasis and crowding of the lung markings as well as irregularities of the proximal left humerus and distal 3rd right clavicle of uncertain acuity. Dictated by: Dictated on workstation # [id number]
--- NOTE | 2022-02-23 08:43 | Consultation - Ortho ---
Consult - Ortho Subjective Date of Exam 02/23/22 Chief Complaint Intertrochanteric fracture right hip HPI/Events since last exam Mrs Sommer is a 77-year-old white female who fell yesterday she is a Resident at [employer]. She fell and was complaining of Right hip fracture. She was seen in the emergency room was evaluated and x-rayed noted to have an intertrochanteric fracture of the right hip. She was admitted by Dr. Campbell. She has a history of previous left hip fracture treated by Dr. Jordan. She has a history of Alzheimer's. Medical, Surgical History Reviewed and no additions or changes Social History Reviewed and no additions or changes Family History Reviewed and no additions or changes Review of Systems Reviewed and no additions or changes Allergies: Coded Allergies: amoxicillin (Verified Allergy, Unknown, 01/22/20) Home Meds Reported Medications Hydrocodone/Acetaminophen (Hydrocodone-Acetamin 5-325 mg) 5 Mg-325 Mg Tablet, 1 TAB PO Q4H PRN for PAIN-MODERATE (5-7), TAB 02/22/22 Acetaminophen (Tylenol) 325 Mg Tablet, 650 MG PO 0700,1200,1800, TAB 02/22/22 Mineral Oil, Light/Mineral Oil (Soothe Xp Eye Drops) 1 %-4.5 % Drops, 1 DROP OU 0600,1800, DROPS 02/22/22 Tizanidine HCl (Tizanidine HCl) 2 Mg Tablet, 4 MG PO 1800, TAB TAKES 2 (2MG) TABS 02/22/22 Melatonin (Melatonin) 3 Mg Tablet, 6 MG PO HS, TAB TAKES 2 (3MG) TABS 02/22/22 Atorvastatin Calcium (Lipitor) 10 Mg Tablet, 10 MG PO 1800, TAB 02/22/22 Alendronate Sodium (Fosamax) 70 Mg Tablet, 70 MG PO FRI, TAB 02/22/22 Potassium Chloride (Potassium Chloride) 10 Meq Tab.er.prt, 10 MEQ PO 0600,1200, TAB 01/23/20 Famotidine (Famotidine) 20 Mg Tablet, 20 MG PO DAILY for Heartburn, TAB 01/23/20 Memantine HCl (Memantine HCl) 10 Mg Tablet, 10 MG PO 0600,1800, TAB 01/23/20 Furosemide (Furosemide) 20 Mg Tablet, 20 MG PO 0600,1200, TAB 01/23/20 Levothyroxine Sodium (Levothyroxine Sodium) 25 Mcg Tablet, 25 MCG PO DAILY 01/23/20 Sertraline HCl (Sertraline HCl) 25 Mg Tablet, 25 MG PO 1800 01/23/20 Polyethylene Glycol 3350 (Polyethylene Glycol 3350) 17 Gm Powd.pack, 17 GM PO DAILY PRN PRN for CONSTIPATION-2ND LINE GIVE NEEDED FOR NO BM X 48 HOURS, GIVE DAILY UNTIL BM 01/23/20 Lisinopril (Lisinopril) 40 Mg Tablet, 40 MG PO DAILY NOTIFY PHYSICIAN IF BP < 80/50 OR > 180/110 OR PULSE < 50 OR > 110 01/23/20 Linaclotide (Linzess) 72 Mcg Capsule, 72 MCG PO DAILY 01/23/20 Gabapentin (Gabapentin) 100 Mg Capsule, 100 MG PO DAILY 01/23/20 Calcium Citrate/Vitamin D3 (Citracal-Vit D 200 mg-250 Tab) 1 Each Tablet, 1 EACH PO DAILY, TAB 01/23/20 Bisacodyl (Bisacodyl) 10 Mg Supp.rect, 10 MG RC DAILY PRN PRN for CONSTIPATION- 1ST LINE, SUPP.RECT 01/23/20 Acetaminophen (Tylenol) 325 Mg Tablet, 650 MG PO Q4H PRN for PAIN-MILD (1-4), TAB 01/23/20 Discontinued Reported Medications Tizanidine HCl (Tizanidine HCl) 4 Mg Tablet, 4 MG PO HS 01/23/20 Methyl Salicylate/Menthol (Muscle Rub Cream) 113 Gm Cream..g., 1 APPLIC TP BID APPLY TO KNEE TOPICALLY TWO TIMES A DAY FOR PAIN 01/23/20 Discontinued Scripts Hydrocodone/Acetaminophen (Hydrocodone-Acetamin 5-325 mg) 1 Each Tablet, 1 EACH PO Q4H PRN for PAIN-SEVERE (8-10) for 7 Days, #10 TAB Prov:ETTA CAMPBELL MD 01/26/20 Objective Exam Constitutional: [] HEENT: [] Neck: [No pain with palpation or range of motion] Cardiovascular: [] Respiratory: [] Gastrointestinal: [] Genitourinary: [] Skin: [] Back/Spine: [No pain with palpation] Extremities: [Full range of motion. No deformity. No pain. She appears to have normal sensation with good cap refill and equal pulses Lower extremitiespain right hip. No pain right knee or ankle. No pain left hip knee or ankle. She can move her toes and appears to have normal sensation. Equal pulses. Good capillary refill.] Neurologic: [] Psychiatric: [] Hematologic/lymphatic/immunologic: [] Vital Signs Vital Signs Date Time Temp Pulse Resp B/P (MAP) Pulse Ox O2 Delivery O2 Flow Rate FiO2 02/23/22 07:47 Room Air 02/23/22 07:44 36.6 74 18 146/75 (98) 92 Room Air 02/23/22 03:19 36.8 66 18 149/66 (93) 93 Room Air 02/22/22 23:21 37.0 71 18 152/65 (94) 98 Room Air 02/22/22 20:30 36.1 68 18 144/67 (92) 98 Room Air 02/22/22 19:30 Room Air 02/22/22 15:06 35.9 67 18 142/69 (93) 96 Room Air 02/22/22 14:18 36.4 82 18 155/72 (99) 91 Room Air 02/22/22 14:04 Room Air 02/22/22 13:20 37.0 63 16 140/68 99 02/22/22 11:00 36.7 98 22 132/75 (94) 95 I & O 02/23/22 07:00 Intake Total 1140 ml Output Total 750 ml Balance 390 ml Lab Results Laboratory Tests 02/22/22 11:21: White Blood Count 12.3H, Red Blood Count 4.38, Hemoglobin 12.3, Hematocrit 39, Mean Corpuscular Volume 89, Mean Corpuscular Hemoglobin 28, Mean Corpuscular Hemoglobin Concent 32, Red Cell Distribution Width 14.7H, Platelet Count 290, Mean Platelet Volume 10.1, Immature Granulocyte % (Auto) 0, Neutrophils (%) (Auto) 80H, Lymphocytes (%) (Auto) 13, Monocytes (%) (Auto) 6, Eosinophils (%) (Auto) 0, Basophils (%) (Auto) 1, Neutrophils # (Auto) 9.9H, Lymphocytes # (Auto) 1.6, Monocytes # (Auto) 0.7, Eosinophils # (Auto) 0.0, Basophils # (Auto) 0.1, Immature Granulocyte # (Auto) 0.1, Prothrombin Time 12.6, INR Comment 0.9, Sodium Level 142, Potassium Level 4.1, Chloride Level 107, Carbon Dioxide Level 23, Anion Gap 12, Blood Urea Nitrogen 17, Creatinine 0.96, Estimat Glomerular Filtration Rate 61, BUN/Creatinine Ratio 18, Glucose Level 152H, Calcium Level 9.5, Corrected Calcium 9.3, Total Bilirubin 0.4, Aspartate Amino Transf (AST/SGOT) 18, Alanine Aminotransferase (ALT/SGPT) 25, Alkaline Phosphatase 75, Total Protein 7.5, Albumin 4.2 02/22/22 12:29: Urine Color YELLOW, Urine Clarity CLEAR, Urine pH 7.5, Urine Specific [place] 1.015L, Urine Protein NEGATIVE, Urine Glucose (UA) NEGATIVE, Urine Ketones NE GATIVE, Urine Nitrite NEGATIVE, Urine Bilirubin NEGATIVE, Urine Urobilinogen 0.2, Urine Leukocyte Esterase NEGATIVE, Urine RBC (Auto) NEGATIVE, Urine RBC NONE, Urine WBC RARE, Urine Squamous Epithelial Cells NONE, Urine Crystals NONE, Urine Bacteria NEGATIVE, Urine Casts PRESENT, Urine Hyaline Casts RARE, Urine Mucus NEGATIVE, Urine Culture Indicated NO 02/22/22 18:18: SARS-CoV-2 RNA (RT-PCR) Not Detected 02/23/22 05:30: White Blood Count 12.2H, Red Blood Count 4.02, Hemoglobin 11.3L, Hematocrit 37, Mean Corpuscular Volume 91, Mean Corpuscular Hemoglobin 28, Mean Corpuscular Hemoglobin Concent 31L, Red Cell Distribution Width 14.9H, Platelet Count 263, Mean Platelet Volume 10.7, Immature Granulocyte % (Auto) 0, Neutrophils (%) (Auto) 82H, Lymphocytes (%) (Auto) 10L, Monocytes (%) (Auto) 8, Eosinophils (%) (Auto) 0, Basophils (%) (Auto) 0, Neutrophils # (Auto) 10.0H, Lymphocytes # (Auto) 1.2, Monocytes # (Auto) 0.9, Eosinophils # (Auto) 0.0, Basophils # (Auto) 0.0, Immature Granulocyte # (Auto) 0.0, Sodium Level 139, Potassium Level 3.7, Chloride Level 107, Carbon Dioxide Level 21, Anion Gap 11, Blood Urea Nitrogen 14, Creatinine 0.73, Estimat Glomerular Filtration Rate 85, BUN/Creatinine Ratio 19, Glucose Level 119H, Calcium Level 9.2 Imaging X-ray shows a 2 part intertrochanteric fracture of the right hip. There is some secondary fracture lines extending approximately 10 cm above the main fracture down the shaft of the femur. No distal femur fracture. Press-fit hemiarthroplasty left hip Assessment and Plan Assessment Intertrochanteric fracture right hip Problem List Intertrochanteric fracture right hip Status post bipolar hemiarthroplasty left hip Plan Treatment options were discussed with the patient's son Missael. I talked him ab out nonoperative and operative treatment. He wants to proceed with operative treatment. I recommended a TFN for fixation. This was discussed and he would like to proceed. He understands the procedure risk complications. We discussed use of antibiotics and Lovenox postop. She may have difficulty ambulating postop Due to her Alzheimer's. She may not return to the level she was prior to fall. She has now had 2 hip fractures within a few years.She is DNR.We will proceed with surgery this morning. Final Diagonsis 2 part intertrochanteric fracture right hip Level of the visit: Level 3 ALEXIA MURDOCK MD Feb 23, 2022 08:43
[2022-02-23] MEDS ORDERED: ONDANSETRON 4 MG/2 ML (SDV) Z0FRAN ONE (08:53)
[2022-02-23] MEDS ORDERED: LIDOCAINE PF 2% 5 ML (XYLOCAINE) VIAL ONE (08:53)
[2022-02-23] MEDS ORDERED: proPOfol 200 MG/20 ML (DIPRIVAN) VIAL IV ONE (08:53)
[2022-02-23] MEDS ORDERED: fentaNYL INJ 100 MCG/2 ML AMP ONE (08:54)
[2022-02-23] MEDS: SENNOSIDES 8.6 MG (SENOKOT) TAB PO SCH ×2 (09:16→20:56)
[2022-02-23] MEDS: DOCUSATE SODIUM 100 MG (COLACE) CAP PO SCH ×2 (09:16→20:56)
[2022-02-23] MEDS ORDERED: ceFAZolin INJECTION 2,000 MG ONE (10:10)
[2022-02-23] MEDS ORDERED: ROPIVACAINE 5MG/ML 30ML VIAL ONE (10:50)
[2022-02-23] MEDS ORDERED: SEVOFLURANE (ULTANE) 15 ML INHAL SOLN ONE (10:50)
[2022-02-23] MEDS ORDERED: HYDROmorphone 2 MG/ML VIAL (DILAUDID) IV ONE (11:00)
[2022-02-23] MEDS ORDERED: morphine INJ 10 MG/ML 1ML (SYR OR VIAL) IVP ONE (11:00)
[2022-02-23] MEDS ORDERED: D5 1/2 NS 1000 ML IV SOLUTION 1,000 ML IV SCH (11:15)
[2022-02-23] MEDS ORDERED: HYDROmorphone 2 MG/ML VIAL (DILAUDID) ONE (11:20)
--- NOTE | 2022-02-23 11:22 | Operative Report - Ortho ---
Operative Report Surgeon (s)/Chipping Machine Operator (s) Surgeon ALEXAI MURDOCK MD Chipping Machine Operator n/a Pre-Operative Diagnosis Intertrochanteric fracture right hip Post-Operative Diagnosis same Operative Report Date of Procedure: Feb 23, 2022 Name of Procedure Performed: Long TFN right hip using a 11 mm x 380 mm x 130 degree long nail with a 90 mm helical blade and distal locking screws measuring 46 and 36 mm Description & Findings The patient was seen in the preoperative area and her right leg was marked. I talked to her son prior to surgery and they have no questions or concerns and wa nt to proceed with operative treatment. The patient was taken the operating room and placed on the fracture table after administration of general anesthesia in her hospital bed. The left leg was placed in the well-leg moore and the right foot and ankle were placed in the traction boot. The perineal post was positioned between the legs. The right leg was placed in adduction and slight internal rotation. Also traction was applied on the right leg. Image was used to visualize the fracture which was reduced anatomically with the above. The right thigh hip and knee were then prepped and draped in the usual sterile manner. An incision was made just proximal to the tip of the greater trochanter. This is taken down through the gluteal fascia to the tip of the greater trochanter. A guidewire was then placed in the tip of the greater trochanter into the central aspect of the proximal femur on the lateral view. This was then overreamed. The guidewire was removed and a long guidewire was inserted. An 11 mm x 380 mm x 130 degree long hellen was selected. This was after measuring the guidewire. This was inserted without reaming as the canal was quite generous. This was positioned for the helical blade. Through the lateral guide through an incision down to the lateral cortex a guidewire was inserted into the central aspect of the neck and head. Due to the coxa vera the guidewire was placed to the inferior aspect of the neck which ended up into the slightly superior aspect of the head due to the 130 degree angle on the hellen. This was measured and a 90 mm helical blade was selected. The cortex was opened laterally then helical blade was inserted. This was then locked into place. Again the tip of the helical blade was a little bit superior to the central aspect due to the angle of the neck but was centrally located on the lateral view. This point the guides were removed. Leg was placed in neutral position. Image was used to visualize the distal locking screw holes with the lateral view. These were drilled measured and 46 and 36 mm distal locking screws were inserted.The entire femur was visualized and permanent x-rays were obtained of the hip AP and lateral and the distal femur AP and lateral. Excellent alignment of the fracture was noted as well as position of the hellen and helical blade as well as distal screws.At this point the wound was irrigated with normal saline. Closed proximally with 0 and 2-0 Vicryl as well as skin clips and distally with skin clips. All dressings were applied will be using antibiotic ointment Adaptic and 4 x 4's ABD proximally which were taped in position. At this point anesthesia inserted a iliac us fascial block. Patient was then transferred to her hospital bed in recovery room in good condition she tolerated the procedure well Estimated blood [id number] mL Replacementnone Drainsnone Complicationsnone n/a Anesthesia Type General Estimated Blood Loss 150 mL Packing None Specimen(s) collected/removed None ALEXIA MURDOCK MD Feb 23, 2022 11:22
--- NOTE | 2022-02-23 12:33 | Diagnostic Imaging Report ---
INDICATION: Fluoroscopy for right hip nailing. Fluoroscopy was provided in the OR during right hip nailing. 84 seconds of fluoroscopic time was utilized. 4 images were obtained demonstrating intramedullary hellen and compression screw transfixing the right hip. Alignment appears anatomic. IMPRESSION: Fluoroscopy for right hip ORIF. Dictated by: Dictated on workstation # [id number]
[2022-02-23] MEDS: D5 1/2 NS 1000 ML IV SOLUTION 1,000 ML IV SCH (13:37)
--- NOTE | 2022-02-23 14:00 | Physical Therapy Progress Note ---
Therapy Progress Note Patient currently too sedated with minimal response to sternal rub, to initiate PT. PT will evaluate in a.m. RN notified. LORE SHOOK PT Feb 23, 2022 14:00
--- NOTE | 2022-02-23 15:57 | Progress Note - Hospitalist ---
Subjective HPI/CC On Admission Date Seen by Provider: Feb 23, 2022 Time Seen by Provider: 12:00 Ilene Sommer is a 77 year old female with PMH Alzheimer's dementia, HTN, HLD, GERD, osteoporosis, hypothyroidism, who presented after an unwitnessed fall. She lives at [facility]. She is a poor historian due to her dementia. She denies pain. She denies shortness of breath. She has no complaints. She is confused. Subjective/Events-last exam She was seen after returning from the OR. She is sleeping and appears comfortable in no distress. Objective Exam Vital Signs Vital Signs Date Time Temp Pulse Resp B/P (MAP) Pulse Ox O2 Delivery O2 Flow Rate FiO2 02/23/22 11:51 36.0 62 18 167/69 (101) 93 OxyMask 2.00 Capillary Refill : Less Than 3 Seconds General Appearance: No Apparent Distress, WD/WN Respiratory: Lungs Clear, No Respiratory Distress Cardiovascular: Regular Rate, Rhythm, No Murmur Gastrointestinal: Normal Bowel Sounds, Non Tender, Soft Extremity: Normal Inspection, No Pedal Edema Neurologic/Psychiatric: Other (sleeping) Skin: Warm/Dry, Pallor Results/Procedures Lab Laboratory Tests 02/23/22 05:30 Patient resulted labs reviewed. Imaging: Reviewed Imaging Films, Reviewed Imaging Report Assessment/Plan Assessment and Plan Assess & Plan/Chief Complaint Closed right hip fracture Fall at ground level Osteoporosis XR consistent with hip fracture Ortho following s/p hip surgery 02/23 Pain regimen Bowel regimen Incentive spirometry PT/OT Alzheimer's dementia High risk for perioperative delirium Monitor and avoid delirium triggers HTN HLD GERD Hypothyrodism Continue home meds DVT prophylaxis: Lovenox Diagnosis/Problems Diagnosis/Problems (1) Closed right hip fracture Status: Acute Qualifiers: Encounter type: initial encounter Qualified Codes: S72.001A - Fracture of unspecified part of neck of right femur, initial encounter for closed fracture (2) Fall Status: Acute Qualifiers: Encounter type: initial encounter Qualified Codes: W19.XXXA - Unspecified fall, initial encounter (3) HTN (hypertension) Status: Chronic (4) HLD (hyperlipidemia) Status: Chronic (5) Hypothyroidism Status: Chronic (6) GERD (gastroesophageal reflux disease) Status: Chronic (7) Alzheimer's dementia Status: Chronic (8) Osteoporosis Status: Chronic Qualifiers: Osteoporosis type: age-related Presence of current pathological fracture: with current pathological fracture Encounter type: initial encounter Qualified Codes: M80.00XA - Age-related osteoporosis with current pathological fracture, unspecified site, initial encounter for fracture ETTA CAMPBELL MD Feb 23, 2022 15:57
[2022-02-23] MEDS: ceFAZolin 2 GM IV Premixed 50 ML IV SCH (17:29)
[2022-02-23] MEDS ORDERED: ENOXAPARIN 40 MG/0.4 ML (LOVENOX) SYR SC SCH ×2 (18:00→23:15)
[2022-02-23] MEDS: ZIPRASIDONE 20 MG INJ (GEODON) VIAL IM PRN (23:06)
[2022-02-23] MEDS: ENOXAPARIN 40 MG/0.4 ML (LOVENOX) SYR SC SCH (23:07)
[2022-02-24] MEDS: ceFAZolin 2 GM IV Premixed 50 ML IV SCH ×2 (01:24→11:08)
[2022-02-24 03:48] VITALS: BP 159/88
[2022-02-24] MEDS: D5 1/2 NS 1000 ML IV SOLUTION 1,000 ML IV SCH ×3 (04:01→21:11)
[2022-02-24] MEDS: fentaNYL INJ 100 MCG/2 ML AMP IVP PRN ×2 (06:17→11:07)
[2022-02-24] MEDS: CATHETER FLUSH 10 ML SYR IV SCH ×3 (06:17→21:29)
[2022-02-24] MEDS: LORazepam INJ 2 MG/ML (ATIVAN) VIAL IVP PRN (06:47)
[2022-02-24 07:46] VITALS: BP 147/61
--- NOTE | 2022-02-24 09:25 | Progress Note - Ortho ---
Progress Note Subjective Date of Exam 02/24/22 Chief Complaint POD#1 Long TFN Right hip for intertrochanteric fracture HPI/Events since last exam Mrs Sommer is 1 day postop long TFN for intertrochanteric fracture right hip. When I saw her she was sitting up in a chair. She appeared to be quite co mfortable.Did not answer any my questions. Review of Systems Reviewed and no additions or changes Allergies: Coded Allergies: amoxicillin (Verified Allergy, Unknown, 01/22/20) Home Meds Reported Medications Hydrocodone/Acetaminophen (Hydrocodone-Acetamin 5-325 mg) 5 Mg-325 Mg Tablet, 1 TAB PO Q4H PRN for PAIN-MODERATE (5-7), TAB 02/22/22 Acetaminophen (Tylenol) 325 Mg Tablet, 650 MG PO 0700,1200,1800, TAB 02/22/22 Mineral Oil, Light/Mineral Oil (Soothe Xp Eye Drops) 1 %-4.5 % Drops, 1 DROP OU 0600,1800, DROPS 02/22/22 Tizanidine HCl (Tizanidine HCl) 2 Mg Tablet, 4 MG PO 1800, TAB TAKES 2 (2MG) TABS 02/22/22 Melatonin (Melatonin) 3 Mg Tablet, 6 MG PO HS, TAB TAKES 2 (3MG) TABS 02/22/22 Atorvastatin Calcium (Lipitor) 10 Mg Tablet, 10 MG PO 1800, TAB 02/22/22 Alendronate Sodium (Fosamax) 70 Mg Tablet, 70 MG PO FRI, TAB 02/22/22 Potassium Chloride (Potassium Chloride) 10 Meq Tab.er.prt, 10 MEQ PO 0600,1200, TAB 01/23/20 Famotidine (Famotidine) 20 Mg Tablet, 20 MG PO DAILY for Heartburn, TAB 01/23/20 Memantine HCl (Memantine HCl) 10 Mg Tablet, 10 MG PO 0600,1800, TAB 01/23/20 Furosemide (Furosemide) 20 Mg Tablet, 20 MG PO 0600,1200, TAB 01/23/20 Levothyroxine Sodium (Levothyroxine Sodium) 25 Mcg Tablet, 25 MCG PO DAILY 01/23/20 Sertraline HCl (Sertraline HCl) 25 Mg Tablet, 25 MG PO 1800 01/23/20 Polyethylene Glycol 3350 (Polyethylene Glycol 3350) 17 Gm Powd.pack, 17 GM PO DAILY PRN PRN for CONSTIPATION-2ND LINE GIVE NEEDED FOR NO BM X 48 HOURS, GIVE DAILY UNTIL BM 01/23/20 Lisinopril (Lisinopril) 40 Mg Tablet, 40 MG PO DAILY NOTIFY PHYSICIAN IF BP < 80/50 OR > 180/110 OR PULSE < 50 OR > 110 01/23/20 Linaclotide (Linzess) 72 Mcg Capsule, 72 MCG PO DAILY 01/23/20 Gabapentin (Gabapentin) 100 Mg Capsule, 100 MG PO DAILY 01/23/20 Calcium Citrate/Vitamin D3 (Citracal-Vit D 200 mg-250 Tab) 1 Each Tablet, 1 EACH PO DAILY, TAB 01/23/20 Bisacodyl (Bisacodyl) 10 Mg Supp.rect, 10 MG RC DAILY PRN PRN for CONSTIPATION- 1ST LINE, SUPP.RECT 01/23/20 Acetaminophen (Tylenol) 325 Mg Tablet, 650 MG PO Q4H PRN for PAIN-MILD (1-4), TAB 01/23/20 Discontinued Reported Medications Tizanidine HCl (Tizanidine HCl) 4 Mg Tablet, 4 MG PO HS 01/23/20 Methyl Salicylate/Menthol (Muscle Rub Cream) 113 Gm Cream..g., 1 APPLIC TP BID APPLY TO KNEE TOPICALLY TWO TIMES A DAY FOR PAIN 01/23/20 Discontinued Scripts Hydrocodone/Acetaminophen (Hydrocodone-Acetamin 5-325 mg) 1 Each Tablet, 1 EACH PO Q4H PRN for PAIN-SEVERE (8-10) for 7 Days, #10 TAB Prov:ETTA CAMPBELL MD 01/26/20 Objective Exam Constitutional: [] HEENT: [] Neck: [] Cardiovascular: [] Respiratory: [] Gastrointestinal: [] Genitourinary: [] Skin: [] Back/Spine: [] Extremities: [Dressing is intact to the right hip wounds. It looks like they have either reinforced or redressed the wounds. The distal wounds over the distal screw sites are off. I am assuming the patient is pulling or picking at her dressings.No thigh swelling. No calf tenderness. Negative Homans. She will move her foot up and down as well as her toes. Good pulses and good capillary refill. Good position of the right leg equal to the left] Neurologic: [] Psychiatric: [] Hematologic/lymphatic/immunologic: [] Vital Signs Vital Signs Date Time Temp Pulse Resp B/P (MAP) Pulse Ox O2 Delivery O2 Flow Rate FiO2 02/24/22 07:46 36.7 68 16 147/61 (89) 94 OxyMask 2.00 02/24/22 03:48 36.4 76 16 159/88 (111) 95 OxyMask 2.00 02/23/22 23:28 36.6 61 18 138/61 (86) 95 OxyMask 2.00 02/23/22 20:00 94 OxyMask 2.00 02/23/22 20:00 36.0 66 18 142/65 (90) 94 OxyMask 2.00 02/23/22 18:41 OxyMask 2.00 02/23/22 15:49 36.6 90 18 91 OxyMask 2.00 02/23/22 11:51 36.0 62 18 167/69 (101) 93 OxyMask 2.00 02/23/22 11:40 36.3 10 117/69 (85) 98 OxyMask 3 02/23/22 11:40 OxyMask 3 02/23/22 11:30 OxyMask 5 02/23/22 11:30 10 124/67 (86) 96 OxyMask 5 02/23/22 11:20 Room Air 02/23/22 11:20 19 112/101 (105) 98 Room Air 02/23/22 11:10 23 109/75 (86) 93 OxyMask 3 02/23/22 11:05 OxyMask 4 02/23/22 11:00 13 131/74 (93) 99 OxyMask 4 02/23/22 10:52 16 134/74 (94) 98 OxyMask 7 02/23/22 10:52 OxyMask 7 I & O 02/24/22 07:00 Intake Total 2040 ml Output Total 1050 ml Balance 990 ml Lab Results Laboratory Tests 02/24/22 05:48: Hemoglobin 9.0#L, Hematocrit 28L Assessment and Plan Assessment Doing well first day postop Problem List Unchanged Plan Continue out of bed to chair and attempt walker ambulation weightbearing as tolerated on the right. Final Diagonsis Intertrochanteric fracture right hip status post long TFN Level of the visit: Level 3 ALEXIA MURDOCK MD Feb 24, 2022 09:25
--- NOTE | 2022-02-24 09:56 | Anesthesia-General Post-Op ---
General Patient Condition Mental Status/LOC: Same as Preop Cardiovascular: Satisfactory Nausea/Vomiting: Absent Respiratory: Satisfactory Pain: Controlled Complications: Absent Post Op Complications Complications None Follow Up Care/Instructions Patient Instructions None needed. Anesthesia/Patient Condition Patient Condition Patient is doing well, no complaints, stable vital signs, no apparent adverse anesthesia problems. No complications reported per nursing. ALMAS DARDEN CRNA Feb 24, 2022 09:56
--- NOTE | 2022-02-24 10:12 | Physical Therapy Evaluation ---
PT Evaluation-General Medical Diagnosis Admission Date Feb 22, 2022 at 12:17 Medical Diagnosis: right hip fracture Onset Date: Feb 22, 2022 Therapy Diagnosis Therapy Diagnosis: generalized weakness/debility Precautions Precautions/Isolations: Fall Prevention, Standard Precautions Weight Bear Status Right Lower Extremity: Right Full Weight Bearing Left Lower Extremity: Left Full Weight Bearing Referral Physician: Rachel Reason for Referral: Evaluation/Treatment Medical History Pertinent Medical History: Dementia (advanced Alzheimers), HTN, Hypothroidism Current History EMS from [place] secondary to fall Reviewed History: Yes Social History Home: [facility] Prior Prior Level of Function SCALE: Activities may be completed with or without assistive devices. 1-Rnjbhfistp-jdiwsya completes the activity by him/herself with no assistance from a helper. 5-Set-up or Clean-up Assistance-helper sets up or cleans up; patient completes activity. [place] assists only prior to or following the activity. 4-Supervision or Touching Assistance-helper provides verbal cues and/or touching/steadying and/or contact guard assistance as patient completes activity. Assistance may be provided throughout the activity or intermittently. 3-Partial/Moderate Assistance-helper does LESS THAN HALF the effort. [place] lifts, holds or supports trunk or limbs, but provides less than half the effort. 2-Substantial/Maximal Assistance-helper does MORE THAN HALF the effort. [place] lifts or holds trunk or limbs and provides more than half the effort. 7-Fptleofrs-mxsdwu does ALL the effort. Patient does none of the effort to complete the activity. Or, the assistance of 2 or more helpers is required for the patient to complete the activity. If activity was not attempted, code reason: 7-Patient Refused. 9-Not Applicable-not attempted and the patient did not perform the activity before the current illness, exacerbation or injury. 10-Not Attempted due to Environmental Limitations-(lack of equipment, weather restraints, etc.). 88-Not Attempted due to Medical Conditions or Safety Concerns. unable to assess due to no family in room PT Evaluation-Current Subjective Patient is trying to get OOB. Sitter present Objective Patient Orientation: Confused, Non-Verbal/Aphasic Attachments: Oxygen, Khalil Catheter, IV ROM/Strength ROM Lower Extremities bilateral LE WFL Strength Lower Extremities unable to test due to patient's inability to follow direction Integumentary/Posture Bladder Incontinence: Khalil Cath Posture WFL Neuromuscular (Tone, Coordination, Reflexes) grossly intact Sensory Vision: Unable to Assess Hearing: Unable to Assess Transfers Lying to Sitting/Side of Bed(Q: 1 Sit to Stand (QC): 1 Chair/Jjp-bz-Zeedd Xfer(QC): 1 attempted to stand to FWW, however, patient did yell in pain with this (dependent SPT bed to recliner) Balance Sitting Static: Poor Sitting Dynamic: Poor Standing Static: Poor Standing Dynamic: Poor Assessment/Needs 77 y.o. female, will be seen short term by skilled PT to address functional mobility. Patient has advanced dementia and is unable to follow simple direction. PT will see patient 6/wk to attempt to advance to ambulation. Nursing to assist patient with transfers to recliner for meals. Rehab Potential: Poor PT Half-Way Goals Finance And Administration Manager Goals PT Half-Way Goals Time Frame: Mar 04, 2022 Roll Left & Right (QC): 2 Sit to Lying (QC): 2 Lying-Sitting on Side/Bed(QC): 2 Sit to Stand (QC): 2 Chair/Qnr-lo-Sfrtg Xfer(QC): 2 Walk 10 feet (QC): 2 PT Plan Problem List Problem List: Activity Tolerance, Functional Strength, Safety, Balance, Gait, Transfer, Bed Mobility Treatment/Plan Treatment Plan: Continue Plan of Care Treatment Plan: Bed Mobility, Education, Functional Activity [place], Functional Strength, Gait, Safety, Therapeutic Exercise, Transfers Treatment Duration: Mar 04, 2022 Frequency: 6 times per week Estimated Hrs Per Day: .25 hour per day Time/GCodes Time In: 855 Time Out: 905 Total Billed Treatment Time: 10 Total Billed Treatment 1 visit [facility] 10 min LORE SHOOK PT Feb 24, 2022 10:12
[2022-02-24] MEDS: DOCUSATE SODIUM 100 MG (COLACE) CAP PO SCH ×2 (11:12→21:11)
[2022-02-24] MEDS: SENNOSIDES 8.6 MG (SENOKOT) TAB PO SCH ×2 (11:12→21:11)
[2022-02-24 11:42] VITALS: BP 148/79
[2022-02-24] MEDS: WATER (STERILE) FOR INJ 10 ML BTL INJ SCH (12:25)
[2022-02-24] MEDS: ZIPRASIDONE 20 MG INJ (GEODON) VIAL IM PRN (12:25)
[2022-02-24 15:22] VITALS: BP 143/80
--- NOTE | 2022-02-24 16:09 | Progress Note - Hospitalist ---
Subjective HPI/CC On Admission Date Seen by Provider: Feb 24, 2022 Time Seen by Provider: 11:00 Ilene Sommer is a 77 year old female with PMH Alzheimer's dementia, HTN, HLD, GERD, osteoporosis, hypothyroidism, who presented after an unwitnessed fall. She lives at [facility]. She is a poor historian due to her dementia. She denies pain. She denies shortness of breath. She has no complaints. She is confused. Subjective/Events-last exam She is confused. She is trying to climb out of her chair. She is uncooperative. Objective Exam Vital Signs Vital Signs Date Time Temp Pulse Resp B/P (MAP) Pulse Ox O2 Delivery O2 Flow Rate FiO2 02/24/22 15:22 35.7 88 20 143/80 (101) 96 OxyMask 2.00 Capillary Refill : Less Than 3 Seconds General Appearance: No Apparent Distress, Chronically ill Respiratory: Lungs Clear, No Respiratory Distress Cardiovascular: Regular Rate, Rhythm, No Murmur Gastrointestinal: Normal Bowel Sounds, Soft Extremity: Normal Inspection, No Pedal Edema Neurologic/Psychiatric: Alert, Disoriented, Other (uncooperative) Skin: Warm/Dry, Pallor Results/Procedures Lab Laboratory Tests 02/24/22 05:48 Patient resulted labs reviewed. Imaging: Reviewed Imaging Films, Reviewed Imaging Report Assessment/Plan Assessment and Plan Assess & Plan/Chief Complaint Closed right hip fracture Fall at ground level Osteoporosis XR consistent with hip fracture Ortho following s/p hip surgery 02/23 Pain regimen Bowel regimen Incentive spirometry PT/OT Posteroperative anemia due to acute blood loss Hgb 9 Monitor Delirium Alzheimer's dementia High risk for perioperative delirium As needed medications for anxiety and agitation Monitor and avoid delirium triggers HTN HLD GERD Hypothyrodism Continue home meds DVT prophylaxis: Lovenox Diagnosis/Problems Diagnosis/Problems (1) Closed right hip fracture Status: Acute Qualifiers: Encounter type: initial encounter Qualified Codes: S72.001A - Fracture of unspecified part of neck of right femur, initial encounter for closed fracture (2) Fall Status: Acute Qualifiers: Encounter type: initial encounter Qualified Codes: W19.XXXA - Unspecified fall, initial encounter (3) HTN (hypertension) Status: Chronic (4) HLD (hyperlipidemia) Status: Chronic (5) Hypothyroidism Status: Chronic (6) GERD (gastroesophageal reflux disease) Status: Chronic (7) Alzheimer's dementia Status: Chronic (8) Osteoporosis Status: Chronic Qualifiers: Osteoporosis type: age-related Presence of current pathological fracture: with current pathological fracture Encounter type: initial encounter Qualified Codes: M80.00XA - Age-related osteoporosis with current pathological fracture, unspecified site, initial encounter for fracture (9) Postoperative anemia due to acute blood loss Status: Acute (10) Delirium Status: Acute ETTA CAMPBELL MD Feb 24, 2022 16:09
[2022-02-24] MEDS: AtorvaSTATin TABLET 10 MG TABLET PO SCH (17:03)
[2022-02-24] MEDS: SERTRALINE 50 MG (ZOLOFT) TABLET PO SCH (17:03)
[2022-02-24] MEDS: MEMANTINE 10 MG (NAMENDA) TABLET PO SCH (17:21)
[2022-02-24] MEDS ORDERED: TIZANIDINE HCL 4 MG PO SCH (18:00)
[2022-02-24] MEDS ORDERED: NON-FORMULARY MEDICATION 1 EA EA (Sertraline HCl 25 MG) PO SCH (18:00)
[2022-02-24 19:52] VITALS: BP 106/65
[2022-02-24] MEDS: MELATONIN 3 MG TABLET PO SCH (21:11)
[2022-02-24] MEDS: ENOXAPARIN 40 MG/0.4 ML (LOVENOX) SYR SC SCH (22:41)
[2022-02-24 23:26] VITALS: BP 120/71
[2022-02-25 04:17] VITALS: BP 145/75
[2022-02-25] MEDS: LEVOTHYROXINE 25 MCG (LEVOTHROID) TAB PO SCH (05:27)
[2022-02-25] MEDS: ZIPRASIDONE 20 MG INJ (GEODON) VIAL IM PRN (05:29)
[2022-02-25] MEDS: WATER (STERILE) FOR INJ 10 ML BTL INJ SCH (05:29)
[2022-02-25] MEDS: CATHETER FLUSH 10 ML SYR IV SCH ×3 (05:43→19:44)
[2022-02-25 07:10] VITALS: BP 149/74
[2022-02-25] MEDS ORDERED: NON-FORMULARY MEDICATION 1 EA EA (Linaclotide (Linzess) 72 MCG) PO SCH (09:00)
--- NOTE | 2022-02-25 09:27 | Progress Note - Ortho ---
Progress Note Subjective Date of Exam 02/25/22 Chief Complaint POD#2 Long TFN right hip for a 2 part intertrochanteric fracture HPI/Events since last exam Mrs Sommer is 2 days postop long TFN right hip for a 2 part intertrochanteric fracture. When I saw her she was lying in bed. She appeared comfortable. She still confused and does not answer questions. Review of Systems Reviewed and no additions or changes Allergies: Coded Allergies: amoxicillin (Verified Allergy, Unknown, 01/22/20) Home Meds Reported Medications Hydrocodone/Acetaminophen (Hydrocodone-Acetamin 5-325 mg) 5 Mg-325 Mg Tablet, 1 TAB PO Q4H PRN for PAIN-MODERATE (5-7), TAB 02/22/22 Acetaminophen (Tylenol) 325 Mg Tablet, 650 MG PO 0700,1200,1800, TAB 02/22/22 Mineral Oil, Light/Mineral Oil (Soothe Xp Eye Drops) 1 %-4.5 % Drops, 1 DROP OU 0600,1800, DROPS 02/22/22 Tizanidine HCl (Tizanidine HCl) 2 Mg Tablet, 4 MG PO 1800, TAB TAKES 2 (2MG) TABS 02/22/22 Melatonin (Melatonin) 3 Mg Tablet, 6 MG PO HS, TAB TAKES 2 (3MG) TABS 02/22/22 Atorvastatin Calcium (Lipitor) 10 Mg Tablet, 10 MG PO 1800, TAB 02/22/22 Alendronate Sodium (Fosamax) 70 Mg Tablet, 70 MG PO FRI, TAB 02/22/22 Potassium Chloride (Potassium Chloride) 10 Meq Tab.er.prt, 10 MEQ PO 0600,1200, TAB 01/23/20 Famotidine (Famotidine) 20 Mg Tablet, 20 MG PO DAILY for Heartburn, TAB 01/23/20 Memantine HCl (Memantine HCl) 10 Mg Tablet, 10 MG PO 0600,1800, TAB 01/23/20 Furosemide (Furosemide) 20 Mg Tablet, 20 MG PO 0600,1200, TAB 01/23/20 Levothyroxine Sodium (Levothyroxine Sodium) 25 Mcg Tablet, 25 MCG PO DAILY 01/23/20 Sertraline HCl (Sertraline HCl) 25 Mg Tablet, 25 MG PO 1800 01/23/20 Polyethylene Glycol 3350 (Polyethylene Glycol 3350) 17 Gm Powd.pack, 17 GM PO DAILY PRN PRN for CONSTIPATION-2ND LINE GIVE NEEDED FOR NO BM X 48 HOURS, GIVE DAILY UNTIL BM 01/23/20 Lisinopril (Lisinopril) 40 Mg Tablet, 40 MG PO DAILY NOTIFY PHYSICIAN IF BP < 80/50 OR > 180/110 OR PULSE < 50 OR > 110 01/23/20 Linaclotide (Linzess) 72 Mcg Capsule, 72 MCG PO DAILY 01/23/20 Gabapentin (Gabapentin) 100 Mg Capsule, 100 MG PO DAILY 01/23/20 Calcium Citrate/Vitamin D3 (Citracal-Vit D 200 mg-250 Tab) 1 Each Tablet, 1 EACH PO DAILY, TAB 01/23/20 Bisacodyl (Bisacodyl) 10 Mg Supp.rect, 10 MG RC DAILY PRN PRN for CONSTIPATION- 1ST LINE, SUPP.RECT 01/23/20 Acetaminophen (Tylenol) 325 Mg Tablet, 650 MG PO Q4H PRN for PAIN-MILD (1-4), TAB 01/23/20 Discontinued Reported Medications Tizanidine HCl (Tizanidine HCl) 4 Mg Tablet, 4 MG PO HS 01/23/20 Methyl Salicylate/Menthol (Muscle Rub Cream) 113 Gm Cream..g., 1 APPLIC TP BID APPLY TO KNEE TOPICALLY TWO TIMES A DAY FOR PAIN 01/23/20 Discontinued Scripts Hydrocodone/Acetaminophen (Hydrocodone-Acetamin 5-325 mg) 1 Each Tablet, 1 EACH PO Q4H PRN for PAIN-SEVERE (8-10) for 7 Days, #10 TAB Prov:ETTA CAMPBELL MD 01/26/20 Objective Exam Constitutional: [] HEENT: [] Neck: [] Cardiovascular: [] Respiratory: [] Gastrointestinal: [] Genitourinary: [] Skin: [] Back/Spine: [] Extremities: Dressing is intact right hip and was changed yesterday. No dressing over the distal thigh wounds. Wounds are clean and dry. No calf tenderness negative Homans. Pain with motion right hip. Good cap refill to the foot and toes and good pulses. Equal position of right leg compared to left[] Neurologic: [] Psychiatric: [] Hematologic/lymphatic/immunologic: [] Vital Signs Vital Signs Date Time Temp Pulse Resp B/P (MAP) Pulse Ox O2 Delivery O2 Flow Rate FiO2 02/25/22 07:10 36.5 71 18 149/74 (99) 99 OxyMask 2.00 02/25/22 04:17 37.1 86 20 145/75 (98) 96 OxyMask 2.00 02/24/22 23:26 36.4 86 20 120/71 (87) 95 OxyMask 2.00 02/24/22 19:52 36.5 89 20 106/65 (79) 98 Nasal Cannula 2.00 02/24/22 19:45 96 OxyMask 2.00 02/24/22 18:25 OxyMask 2.00 02/24/22 15:22 35.7 88 20 143/80 (101) 96 OxyMask 2.00 02/24/22 11:42 36.8 64 18 148/79 (102) 95 OxyMask 2.00 I & O 02/25/22 07:00 Intake Total 3280 ml Output Total 1600 ml Balance 1680 ml Lab Results Laboratory Tests 02/25/22 06:55: Hemoglobin 8.0L, Hematocrit 25L Assessment and Plan Assessment Doing well second day postop. Hemoglobin 8.0 dropped from 9.0 yesterday Problem List Unchanged Plan Continue out of bed to chair as tolerated. Due to the patient's Alzheimer's/confusion doubt if she will be able to ambulate or follow directions for walker ambulation weightbearing as tolerated.Patient was a limited ambulator due to her previous left hip fracture Recheck hemoglobin tomorrow. Probably can return to [facility] at any time. Final Diagonsis 2 part intertrochanteric fracture right hip status post long TFN Level of the visit: Level 3 ALEXIA MURDOCK MD Feb 25, 2022 09:27
[2022-02-25] MEDS: D5 1/2 NS 1000 ML IV SOLUTION 1,000 ML IV SCH ×2 (10:17→17:15)
[2022-02-25] MEDS: SENNOSIDES 8.6 MG (SENOKOT) TAB PO SCH ×2 (10:17→19:43)
[2022-02-25] MEDS: MEMANTINE 10 MG (NAMENDA) TABLET PO SCH ×2 (10:17→17:16)
[2022-02-25] MEDS: DOCUSATE SODIUM 100 MG (COLACE) CAP PO SCH ×2 (10:17→19:42)
[2022-02-25] MEDS: GABAPENTIN 100 MG (NEURONTIN) CAP PO SCH (10:18)
[2022-02-25] MEDS: FAMOTIDINE 20 MG (PEPCID) TABLET PO SCH (10:18)
[2022-02-25] MEDS: lisINopril 40 MG (PRINIVIL) TABLET PO SCH (10:18)
[2022-02-25] MEDS: HYDROcodone/APAP 5 MG/325 MG (LORTAB) TAB PO PRN ×2 (10:21→19:43)
--- NOTE | 2022-02-25 10:49 | Physical Therapy Progress Note ---
Therapy Progress Note First attempt, Pt eating breakfast. Upon second attempt, sitter reports Pt has been in a lot of pain and screamed when they attempted to turn her. Recently given pain meds per sitter. Pt agitated and perseverating, stating "Help me, help me" over and over holding (B) hands up. PT will resume on Sunday as tolerated. RAPHAEL HENNESSY DPT Feb 25, 2022 10:49
[2022-02-25 12:00] VITALS: BP 132/75
[2022-02-25 15:22] VITALS: BP 130/70
[2022-02-25] MEDS: AtorvaSTATin TABLET 10 MG TABLET PO SCH (17:13)
[2022-02-25] MEDS: SERTRALINE 50 MG (ZOLOFT) TABLET PO SCH (17:13)
--- NOTE | 2022-02-25 18:26 | Progress Note - Hospitalist ---
Subjective HPI/CC On Admission Date Seen by Provider: Feb 25, 2022 Time Seen by Provider: 10:20 Ilene Sommer is a 77 year old female with PMH Alzheimer's dementia, HTN, HLD, GERD, osteoporosis, hypothyroidism, who presented after an unwitnessed fall. She lives at [facility]. She is a poor historian due to her dementia. She denies pain. She denies shortness of breath. She has no complaints. She is confused. Subjective/Events-last exam She is awake and alert. She appears to be returned to her baseline mental status. She denies pain. Objective Exam Vital Signs Vital Signs Date Time Temp Pulse Resp B/P (MAP) Pulse Ox O2 Delivery O2 Flow Rate FiO2 02/25/22 16:39 OxyMask 2.00 02/25/22 15:22 36.5 79 22 130/70 (90) 96 Capillary Refill : Less Than 3 Seconds General Appearance: No Apparent Distress, WD/WN Respiratory: Lungs Clear, No Respiratory Distress Cardiovascular: Regular Rate, Rhythm, No Murmur Gastrointestinal: Normal Bowel Sounds, Soft Extremity: Normal Inspection, No Pedal Edema Neurologic/Psychiatric: Alert, Disoriented Skin: Warm/Dry, Pallor Results/Procedures Lab Laboratory Tests 02/25/22 06:55 Patient resulted labs reviewed. Imaging: Reviewed Imaging Films, Reviewed Imaging Report Assessment/Plan Assessment and Plan Assess & Plan/Chief Complaint Closed right hip fracture Fall at ground level Osteoporosis XR consistent with hip fracture Ortho following s/p hip surgery 02/23 Pain regimen Bowel regimen Incentive spirometry PT/OT Likely discharge back to facility Sunday Posteroperative anemia due to acute blood loss Hgb 8 Monitor Delirium Alzheimer's dementia High risk for perioperative delirium As needed medications for anxiety and agitation Monitor and avoid delirium triggers HTN HLD GERD Hypothyrodism Continue home meds DVT prophylaxis: Lovenox Diagnosis/Problems Diagnosis/Problems (1) Closed right hip fracture Status: Acute Qualifiers: Encounter type: initial encounter Qualified Codes: S72.001A - Fracture of unspecified part of neck of right femur, initial encounter for closed fracture (2) Fall Status: Acute Qualifiers: Encounter type: initial encounter Qualified Codes: W19.XXXA - Unspecified fall, initial encounter (3) HTN (hypertension) Status: Chronic (4) HLD (hyperlipidemia) Status: Chronic (5) Hypothyroidism Status: Chronic (6) GERD (gastroesophageal reflux disease) Status: Chronic (7) Alzheimer's dementia Status: Chronic (8) Osteoporosis Status: Chronic Qualifiers: Osteoporosis type: age-related Presence of current pathological fracture: with current pathological fracture Encounter type: initial encounter Qualified Codes: M80.00XA - Age-related osteoporosis with current pathological fracture, unspecified site, initial encounter for fracture (9) Postoperative anemia due to acute blood loss Status: Acute (10) Delirium Status: Acute ETTA CAMPBELL MD Feb 25, 2022 18:26
[2022-02-25 19:07] VITALS: BP 150/64
[2022-02-25] MEDS: MELATONIN 3 MG TABLET PO SCH (19:43)
[2022-02-25 23:33] VITALS: BP 168/80
[2022-02-25] MEDS: ENOXAPARIN 40 MG/0.4 ML (LOVENOX) SYR SC SCH (23:33)
[2022-02-25] MEDS: LORazepam INJ 2 MG/ML (ATIVAN) VIAL IVP PRN (23:53)
[2022-02-26] MEDS: D5 1/2 NS 1000 ML IV SOLUTION 1,000 ML IV SCH ×3 (03:16→18:28)
[2022-02-26] MEDS: CATHETER FLUSH 10 ML SYR IV SCH ×3 (04:53→22:28)
[2022-02-26] MEDS: HYDROcodone/APAP 5 MG/325 MG (LORTAB) TAB PO PRN ×3 (04:53→20:39)
[2022-02-26] MEDS: MEMANTINE 10 MG (NAMENDA) TABLET PO SCH ×2 (04:53→17:35)
[2022-02-26] MEDS: LEVOTHYROXINE 25 MCG (LEVOTHROID) TAB PO SCH (04:53)
[2022-02-26 04:54] VITALS: BP 155/75
[2022-02-26 06:05] LABS: HEMOGLOBIN 8.1 g/dL (11.5-16.0)
[2022-02-26 08:00] VITALS: BP 172/72
[2022-02-26] MEDS: lisINopril 40 MG (PRINIVIL) TABLET PO SCH (10:26)
[2022-02-26] MEDS: FAMOTIDINE 20 MG (PEPCID) TABLET PO SCH (10:26)
[2022-02-26] MEDS: SENNOSIDES 8.6 MG (SENOKOT) TAB PO SCH ×2 (10:26→20:39)
[2022-02-26] MEDS: DOCUSATE SODIUM 100 MG (COLACE) CAP PO SCH ×2 (10:26→20:38)
[2022-02-26] MEDS: GABAPENTIN 100 MG (NEURONTIN) CAP PO SCH (10:26)
[2022-02-26 11:30] VITALS: BP 141/70
[2022-02-26] MEDS: ZIPRASIDONE 20 MG INJ (GEODON) VIAL IM PRN (14:33)
[2022-02-26 16:00] VITALS: BP 160/71
--- NOTE | 2022-02-26 16:07 | Progress Note - Hospitalist ---
Subjective HPI/CC On Admission Date Seen by Provider: Feb 26, 2022 Time Seen by Provider: 11:40 Ilene Sommer is a 77 year old female with PMH Alzheimer's dementia, HTN, HLD, GERD, osteoporosis, hypothyroidism, who presented after an unwitnessed fall. She lives at [facility]. She is a poor historian due to her dementia. She denies pain. She denies shortness of breath. She has no complaints. She is confused. Subjective/Events-last exam She is resting comfortably in bed Her is at the bedside. She is awake and alert. She appears comfortable. Objective Exam Vital Signs Vital Signs Date Time Temp Pulse Resp B/P (MAP) Pulse Ox O2 Delivery O2 Flow Rate FiO2 02/26/22 11:30 37.0 67 18 141/70 (93) 96 Nasal Cannula 2.00 Capillary Refill : Less Than 3 Seconds General Appearance: No Apparent Distress, WD/WN Respiratory: Lungs Clear, No Respiratory Distress Cardiovascular: Regular Rate, Rhythm, No Murmur Gastrointestinal: Normal Bowel Sounds, Soft Neurologic/Psychiatric: Alert, Disoriented Results/Procedures Lab Laboratory Tests 02/26/22 05:38 Patient resulted labs reviewed. Imaging: Reviewed Imaging Films, Reviewed Imaging Report Assessment/Plan Assessment and Plan Assess & Plan/Chief Complaint Closed right hip fracture Fall at ground level Osteoporosis XR consistent with hip fracture Ortho following s/p hip surgery 02/23 Pain regimen Bowel regimen Incentive spirometry PT/OT Likely discharge back to facility Sunday Posteroperative anemia due to acute blood loss Hgb 8, stable Monitor Delirium Alzheimer's dementia High risk for perioperative delirium As needed medications for anxiety and agitation Monitor and avoid delirium triggers HTN HLD GERD Hypothyrodism Continue home meds DVT prophylaxis: Lovenox Diagnosis/Problems Diagnosis/Problems (1) Closed right hip fracture Status: Acute Qualifiers: Encounter type: initial encounter Qualified Codes: S72.001A - Fracture of unspecified part of neck of right femur, initial encounter for closed fracture (2) Fall Status: Acute Qualifiers: Encounter type: initial encounter Qualified Codes: W19.XXXA - Unspecified fall, initial encounter (3) HTN (hypertension) Status: Chronic (4) HLD (hyperlipidemia) Status: Chronic (5) Hypothyroidism Status: Chronic (6) GERD (gastroesophageal reflux disease) Status: Chronic (7) Alzheimer's dementia Status: Chronic (8) Osteoporosis Status: Chronic Qualifiers: Osteoporosis type: age-related Presence of current pathological fracture: with current pathological fracture Encounter type: initial encounter Qualified Codes: M80.00XA - Age-related osteoporosis with current pathological fracture, unspecified site, initial encounter for fracture (9) Postoperative anemia due to acute blood loss Status: Acute (10) Delirium Status: Acute ETTA CAMPBELL MD Feb 26, 2022 16:07
[2022-02-26] MEDS: SERTRALINE 50 MG (ZOLOFT) TABLET PO SCH (17:35)
[2022-02-26] MEDS: AtorvaSTATin TABLET 10 MG TABLET PO SCH (17:35)
[2022-02-26 19:58] VITALS: BP 124/58
[2022-02-26] MEDS: MELATONIN 3 MG TABLET PO SCH (20:39)
[2022-02-26] MEDS: ENOXAPARIN 40 MG/0.4 ML (LOVENOX) SYR SC SCH (22:27)
[2022-02-26 23:35] VITALS: BP 154/67
[2022-02-27] MEDS: D5 1/2 NS 1000 ML IV SOLUTION 1,000 ML IV SCH (04:55)
[2022-02-27] MEDS: LEVOTHYROXINE 25 MCG (LEVOTHROID) TAB PO SCH (06:17)
[2022-02-27] MEDS: CATHETER FLUSH 10 ML SYR IV SCH (06:17)
[2022-02-27] MEDS: MEMANTINE 10 MG (NAMENDA) TABLET PO SCH (06:17)
[2022-02-27 07:49] VITALS: BP 186/78
--- NOTE | 2022-02-27 08:27 | Progress Note - Ortho ---
Progress Note Subjective Date of Exam 02/27/22 Chief Complaint POD#4Long TFN for a 2 part intertrochanteric fracture of the right hip HPI/Events since last exam Mrs Sommer is 4 days postop long TFN for a 2 part intertrochanteric fracture right hip. When I saw her she was lying in bed eating breakfast. Appeared to be in no discomfort. Review of Systems Reviewed and no additions or changes Allergies: Coded Allergies: amoxicillin (Verified Allergy, Unknown, 01/22/20) Home Meds Reported Medications Hydrocodone/Acetaminophen (Hydrocodone-Acetamin 5-325 mg) 5 Mg-325 Mg Tablet, 1 TAB PO Q4H PRN for PAIN-MODERATE (5-7), TAB 02/22/22 Acetaminophen (Tylenol) 325 Mg Tablet, 650 MG PO 0700,1200,1800, TAB 02/22/22 Mineral Oil, Light/Mineral Oil (Soothe Xp Eye Drops) 1 %-4.5 % Drops, 1 DROP OU 0600,1800, DROPS 02/22/22 Tizanidine HCl (Tizanidine HCl) 2 Mg Tablet, 4 MG PO 1800, TAB TAKES 2 (2MG) TABS 02/22/22 Melatonin (Melatonin) 3 Mg Tablet, 6 MG PO HS, TAB TAKES 2 (3MG) TABS 02/22/22 Atorvastatin Calcium (Lipitor) 10 Mg Tablet, 10 MG PO 1800, TAB 02/22/22 Alendronate Sodium (Fosamax) 70 Mg Tablet, 70 MG PO FRI, TAB 02/22/22 Potassium Chloride (Potassium Chloride) 10 Meq Tab.er.prt, 10 MEQ PO 0600,1200, TAB 01/23/20 Famotidine (Famotidine) 20 Mg Tablet, 20 MG PO DAILY for Heartburn, TAB 01/23/20 Memantine HCl (Memantine HCl) 10 Mg Tablet, 10 MG PO 0600,1800, TAB 01/23/20 Furosemide (Furosemide) 20 Mg Tablet, 20 MG PO 0600,1200, TAB 01/23/20 Levothyroxine Sodium (Levothyroxine Sodium) 25 Mcg Tablet, 25 MCG PO DAILY 01/23/20 Sertraline HCl (Sertraline HCl) 25 Mg Tablet, 25 MG PO 1800 01/23/20 Polyethylene Glycol 3350 (Polyethylene Glycol 3350) 17 Gm Powd.pack, 17 GM PO DAILY PRN PRN for CONSTIPATION-2ND LINE GIVE NEEDED FOR NO BM X 48 HOURS, GIVE DAILY UNTIL BM 01/23/20 Lisinopril (Lisinopril) 40 Mg Tablet, 40 MG PO DAILY NOTIFY PHYSICIAN IF BP < 80/50 OR > 180/110 OR PULSE < 50 OR > 110 01/23/20 Linaclotide (Linzess) 72 Mcg Capsule, 72 MCG PO DAILY 01/23/20 Gabapentin (Gabapentin) 100 Mg Capsule, 100 MG PO DAILY 01/23/20 Calcium Citrate/Vitamin D3 (Citracal-Vit D 200 mg-250 Tab) 1 Each Tablet, 1 EACH PO DAILY, TAB 01/23/20 Bisacodyl (Bisacodyl) 10 Mg Supp.rect, 10 MG RC DAILY PRN PRN for CONSTIPATION- 1ST LINE, SUPP.RECT 01/23/20 Acetaminophen (Tylenol) 325 Mg Tablet, 650 MG PO Q4H PRN for PAIN-MILD (1-4), TAB 01/23/20 Discontinued Reported Medications Tizanidine HCl (Tizanidine HCl) 4 Mg Tablet, 4 MG PO HS 01/23/20 Methyl Salicylate/Menthol (Muscle Rub Cream) 113 Gm Cream..g., 1 APPLIC TP BID APPLY TO KNEE TOPICALLY TWO TIMES A DAY FOR PAIN 01/23/20 Discontinued Scripts Hydrocodone/Acetaminophen (Hydrocodone-Acetamin 5-325 mg) 1 Each Tablet, 1 EACH PO Q4H PRN for PAIN-SEVERE (8-10) for 7 Days, #10 TAB Prov:ETTA CAMPBELL MD 01/26/20 Objective Exam Constitutional: [] HEENT: [] Neck: [] Cardiovascular: [] Respiratory: [] Gastrointestinal: [] Genitourinary: [] Skin: [] Back/Spine: [] Extremities: [The patient had removed all of her dressings. All her incisions look good without redness or drainage. Really no thigh swelling. Pain right hip with gentle range of motion. No calf tenderness and negative Homans. She was able to dorsiflex and plantarflex foot and ankle. Good cap refill to the toes. Good pulses. Equal position the leg compared to the left] Neurologic: [] Psychiatric: [] Hematologic/lymphatic/immunologic: [] Vital Signs Vital Signs Date Time Temp Pulse Resp B/P (MAP) Pulse Ox O2 Delivery O2 Flow Rate FiO2 6/27/22 07:49 35.9 64 16 186/78 (114) 95 Nasal Cannula 2.00 02/26/22 23:35 35.9 68 18 154/67 (96) 96 Nasal Cannula 2.00 02/26/22 20:55 Nasal Cannula 2.00 02/26/22 19:58 36.4 67 18 124/58 (80) 98 Nasal Cannula 2.00 02/26/22 16:00 36.8 71 18 160/71 (100) 97 Nasal Cannula 2.00 02/26/22 11:30 37.0 67 18 141/70 (93) 96 Nasal Cannula 2.00 02/26/22 10:15 OxyMask 2.00 I & O 02/27/22 07:00 Intake Total 960 ml Output Total 3200 ml Balance -2240 ml Assessment and Plan Assessment Doing well 4 days postop.Probable discharge back to longterm Problem List Unchanged Plan Continue out of bed to chair. Continue attempted ambulation with a walker weightbearing as tolerated on the right. Due to patient's Alzheimer's she is probably not a good candidate for ambulation as she has difficulty following instructions.Okay for discharge back to longterm from orthopedic point of view Final Diagonsis 2 part intertrochanteric fracture right hip status post long TFN Level of the visit: Level 3 ALEXIA MURDOCK MD Feb 27, 2022 08:27
[2022-02-27] MEDS: SENNOSIDES 8.6 MG (SENOKOT) TAB PO SCH (09:14)
[2022-02-27] MEDS: lisINopril 40 MG (PRINIVIL) TABLET PO SCH (09:14)
[2022-02-27] MEDS: DOCUSATE SODIUM 100 MG (COLACE) CAP PO SCH (09:14)
[2022-02-27] MEDS: GABAPENTIN 100 MG (NEURONTIN) CAP PO SCH (09:14)
[2022-02-27] MEDS: FAMOTIDINE 20 MG (PEPCID) TABLET PO SCH (09:14)
[2022-02-27 09:22] VITALS: BP 124/61
--- NOTE | 2022-02-27 09:45 | Discharge Inst-Simple/Standard ---
Discharge Inst-Standard Patient Instructions/Follow Up Plan of Care/Instructions/FU: Please continue take your medications as written. Please follow-up with your primary care doctor to follow-up this hospital stay. Activity as Tolerated: Yes Discharge Diet: No Restrictions Return to The Hospital For: Chest pain, shortness of breath, fever, weakness, if you feel you are getting worse. MIRIAN STAPLES MD Feb 27, 2022 09:45
--- NOTE | 2022-02-27 09:49 | Discharge Summary ---
Diagnosis/Chief Complaint Date of Admission Feb 22, 2022 at 12:17 Date of Discharge Discharge Date: Feb 27, 2022 Admission Diagnosis Closed right hip fracture Primary Care Elijah Flowers MD Discharge Diagnosis (1) Closed right hip fracture Status: Acute (2) Fall Status: Acute (3) HTN (hypertension) Status: Chronic (4) HLD (hyperlipidemia) Status: Chronic (5) Hypothyroidism Status: Chronic (6) GERD (gastroesophageal reflux disease) Status: Chronic (7) Alzheimer's dementia Status: Chronic (8) Osteoporosis Status: Chronic (9) Postoperative anemia due to acute blood loss Status: Acute (10) Delirium Status: Acute Discharge Summary Discharge Physical Exam Allergies: Coded Allergies: amoxicillin (Verified Allergy, Unknown, 01/22/20) Vitals & I&Os Vital Signs Date Time Temp Pulse Resp B/P (MAP) Pulse Ox O2 Delivery O2 Flow Rate FiO2 02/27/22 07:49 35.9 64 16 186/78 (114) 95 Nasal Cannula 2.00 Hospital Course Labs (last 24 hrs) Patient resulted labs reviewed. Imaging: Reviewed Imaging Films, Reviewed Imaging Report Discharge Home Medications: Active Scripts Active Reported Hydrocodone-Acetamin 5-325 mg (Hydrocodone/Acetaminophen) 5 Mg-325 Mg Tablet 1 Tab PO Q4H PRN Tylenol (Acetaminophen) 325 Mg Tablet 650 Mg PO 0700,1200,1800 Soothe Xp Eye Drops (Mineral Oil, Light/Mineral Oil) 1 %-4.5 % Drops 1 Drop OU 0600,1800 Tizanidine HCl 2 Mg Tablet 4 Mg PO 1800 TAKES 2 (2MG) TABS Melatonin 3 Mg Tablet 6 Mg PO HS TAKES 2 (3MG) TABS Lipitor (Atorvastatin Calcium) 10 Mg Tablet 10 Mg PO 1800 Fosamax (Alendronate Sodium) 70 Mg Tablet 70 Mg PO SUN Potassium Chloride 10 Meq Tab.er.prt 10 Meq PO 0600,1200 Famotidine 20 Mg Tablet 20 Mg PO DAILY Memantine HCl 10 Mg Tablet 10 Mg PO 0600,1800 Furosemide 20 Mg Tablet 20 Mg PO 0600,1200 Levothyroxine Sodium 25 Mcg Tablet 25 Mcg PO DAILY Sertraline HCl 25 Mg Tablet 25 Mg PO 1800 Polyethylene Glycol 3350 17 Gm Powd.pack 17 Gm PO DAILY PRN PRN GIVE NEEDED FOR NO BM X 48 HOURS, GIVE DAILY UNTIL BM Lisinopril 40 Mg Tablet 40 Mg PO DAILY NOTIFY PHYSICIAN IF BP < 80/50 OR > 180/110 OR PULSE < 50 OR > 110 Linzess (Linaclotide) 72 Mcg Capsule 72 Mcg PO DAILY Gabapentin 100 Mg Capsule 100 Mg PO DAILY Citracal-Vit D 200 mg-250 Tab (Calcium Citrate/Vitamin D3) 1 Each Tablet 1 Each PO DAILY Bisacodyl 10 Mg Supp.rect 10 Mg RC DAILY PRN PRN Tylenol (Acetaminophen) 325 Mg Tablet 650 Mg PO Q4H PRN Instructions to patient/family Please see electronic discharge instructions given to patient. Problem Qualifiers (1) Closed right hip fracture: Encounter type: initial encounter Qualified Codes: S72.001A - Fracture of unspecified part of neck of right femur, initial encounter for closed fracture (2) Fall: Encounter type: initial encounter Qualified Codes: W19.XXXA - Unspecified fall, initial encounter (3) Osteoporosis: Osteoporosis type: age-related Presence of current pathological fracture: with current pathological fracture Encounter type: initial encounter Qualif ied Codes: M80.00XA - Age-related osteoporosis with current pathological fracture, unspecified site, initial encounter for fracture MIRIAN STAPLES MD Feb 27, 2022 09:48
[2022-02-27 11:00] VITALS: BP 124/61
--- NOTE | 2022-02-28 10:41 | Physician Query Clarification ---
PQ-Further Specificity Admission/Discharge Admission Date: Feb 22, 2022 at 12:17 Discharge Date: Feb 27, 2022 at 11:00 Dr. Lynn, The medical record reflects the following clinical scenario: History/Risk Factors: rt intertrochanteric fx, osteoporosis, fall, alzheimer's dementia Clinical Findings: Tenderness over the right hip with external rotation and shortening of the right lower extremity Treatment: IM hellen rt femur Question: Can you further specify if the fracture is due to trauma or osteoporosis per the clinical indicators above? Please document a response in the Progress Notes or Discharge Summary. 1. osteoporosis 2. trauma 3. Other, with explanation of the clinical findings. 4. Clinically undetermined, no explanation for the clinical findings. PHYSICIAN RESPONSE Can you specify per above: 2 In responding to this query, please exercise your independent professional judgment. The purpose of this communication is to more accurately reflect the complexity of your patients condition. The fact that a question is asked does not imply that any particular answer is desired or expected. Thank you for your timely response to this clarification. Requestors name: Jessica THIS PHYSICIAN QUERY FORM IS A PERMANENT PART OF THE MEDICAL RECORD JESSICA GASTON Feb 28, 2022 10:41 MIRIAN LYNN MD Feb 28, 2022 16:15
== END 2022-02-27 11:00 | DRG 481 ==
LOC: EDUNIT# 10:59 → ER 11:00 → 4TH 12:17
PROVIDERS: ADMIT Internal Medicine; ATTEND Internal Medicine
PROC: 0QH636Z Insertion of Intramedullary Internal Fixation Device into Right Upper Femur, Percutaneous Approach (ICD-10-PCS; principal; 2022-02-23 09:18)
DX: S72.141A Displaced intertrochanteric fracture of right femur, initial encounter for closed fracture (principal); D62 Acute posthemorrhagic anemia; F05 Delirium due to known physiological condition; Z91.81 History of falling; M81.0 Age-related osteoporosis without current pathological fracture; G30.9 Alzheimer's disease, unspecified; F02.80 Dementia in other diseases classified elsewhere, unspecified severity, without behavioral disturbance, psychotic disturbance, mood disturbance, and anxiety; Z66 Do not resuscitate; Z20.822 Contact with and (suspected) exposure to COVID-19; E78.00 Pure hypercholesterolemia, unspecified; I10 Essential (primary) hypertension; K21.9 Gastro-esophageal reflux disease without esophagitis; E03.9 Hypothyroidism, unspecified; F41.9 Anxiety disorder, unspecified; Z96.642 Presence of left artificial hip joint; Z88.1 Allergy status to other antibiotic agents; W18.30XA Fall on same level, unspecified, initial encounter; Y92.129 Unspecified place in nursing home as the place of occurrence of the external cause
CPT/HCPCS: 36415; 51702; 70450; 71045; 72125; 73523; 76000; 80048; 80053; 81000; 85014; 85018; 85025; 85610; 87636; 93005; 96361; 96374; 96375

== ENCOUNTER → 2022-03-21 | Outpatient (CLI) | payer MEDICARE ==
[~2022-03-21] VITALS: Wt 68.5 kg
[~2022-03-21] MED LIST changes: +ALEN70TA2 PO; +ATOR10TA PO; +DENOSUMAB 60 MG/1 ML (PROLIA) SQ ONE; +MELA3TAB39 PO; +MINE15DR4 OU
[2022-03-21 11:27] VITALS: BP 125/62
== END ==
LOC: SDC 11:02
PROVIDERS: ATTEND Nurse Practitioner Family
DX: M81.0 Age-related osteoporosis without current pathological fracture (principal)
CPT/HCPCS: 96372

== ENCOUNTER → 2022-03-22 | Outpatient (CLI) | payer MEDICARE ==
[~2022-03-22] MED LIST changes: -DENOSUMAB 60 MG/1 ML (PROLIA) SQ ONE
--- NOTE | 2022-03-22 10:41 | Diagnostic Imaging Report ---
INDICATION: Right hip fracture. TIME OF EXAM: 9:07 AM. FINDINGS: Multiple views of the right femur demonstrate an intramedullary hellen transfixing the proximal right femur fracture. The femoroacetabular alignment is normal. The hardware is intact. There continues to be a residual fracture line in the subtrochanteric aspect of the proximal right femur without significant callus formation. The overall alignment is anatomic. IMPRESSION: ORIF of the right hip fracture. There continues to be a visible fracture line in the subtrochanteric location. Dictated by: Dictated on workstation # [id number]
== END ==
LOC: ORTHO 08:51
PROVIDERS: ATTEND Orthopaedic Surgery
DX: S72.141D Displaced intertrochanteric fracture of right femur, subsequent encounter for closed fracture with routine healing (principal); X58.XXXD Exposure to other specified factors, subsequent encounter; Z98.890 Other specified postprocedural states
CPT/HCPCS: 73552

== ENCOUNTER 2022-03-26 23:45 | Observation (INO) | payer MEDICARE ==
[~2022-03-26] VITALS: Ht 152 cm; Wt 56.6 kg
[2022-03-27] VITALS (8 sets, daily range): BP systolic 146–171; BP diastolic 67–81
[2022-03-27] MEDS ORDERED: HYDROcodone/APAP 5 MG/325 MG (LORTAB) TAB PO ONE (00:30)
--- NOTE | 2022-03-27 00:33 | ED Lower Extremity ---
General Chief Complaint: Trauma-Non Activation Stated Complaint: FALL,HIT HEAD ON LEFT SIDE,LEFT HIP PX Nursing Triage Note: TO ED [facility]IA [facility] FROM [facility] IN [place], [place]. PT HAS HX DEMENTIA, UNABLE TO ANSWER QUESTIONS. HX RIGHT AND LEFT HIP FX NOTED FROM PREVIOUS VISITS. PER [facility] STAFF PT WAS FOUND APPROX 2240 ON GROUND CRAWLING TO HALLWAY. PRIOR TO THIS PT HAD BEEN IN LOW SITTING BED. NOTED BRUSING TO LEFT SIDE FOREHEAD. LEFT SIDE/HIP TENDER TO TOUCH. Source: EMS Exam Limitations: clinical condition History of Present Illness Date Seen by Provider: Mar 27, 2022 Time Seen by Provider: 00:20 Initial Comments Ms. Odom is a 77-year-old female who comes to the emergency department from a local nursing facility after a fall at about 1030 this evening. Staff witnessed her scooting out of her room on her bottom at about 1030 tonight. She is recently in the last year had both hips replaced/had surgery on them for fractur es. The fall was unwitnessed. It is not certain if she had a loss of consciousness or not. It does not appear based on the medical records provided that she is on anticoagulation. She does have a contusion to the left outer orbit. She is moving her upper extremities without difficulty. She is at baseline quite demented, cannot carry on a conversation. She apparently was complaining of left hip pain with manipulation or movement of that left lower extremity. Review of systems is unobtainable as is the rest of the HPI from the patient secondary to her significant dementia. Onset: just prior to arrival Pain/Injury Location: left hip Method of Injury: fell Allergies and Home Medications Allergies Coded Allergies: amoxicillin (Verified Allergy, Unknown, 01/22/20) Patient Home Medication List Home Medication List Reviewed: Yes Acetaminophen (Tylenol) 325 Mg Tablet, 650 MG PO Q4H PRN for PAIN-MILD (1-4), (Reported) Entered as Reported by: BEATRICE FOSTER on 01/23/20 0208 Last Action: Reviewed Acetaminophen (Tylenol) 325 Mg Tablet, 650 MG PO 0700,1200,1800, (Reported) Entered as Reported by: MELVINA WARNER on 02/22/22 1523 Last Action: Reviewed Alendronate Sodium (Fosamax) 70 Mg Tablet, 70 MG PO FRI, (Reported) Entered as Reported by: MELVINA WARNER on 02/22/221522 Last Action: Converted Atorvastatin Calcium (Lipitor) 10 Mg Tablet, 10 MG PO 1800, (Reported) Entered as Reported by: MELVINA WARNER on 02/22/221522 Last Action: Continued Bisacodyl (Bisacodyl) 10 Mg Supp.rect, 10 MG RC DAILY PRN PRN for CONSTIPATION- 1ST LINE, (Reported) Entered as Reported by: BEATRICE FOSTER on 01/23/20237 Last Action: Reviewed Calcium Citrate/Vitamin D3 (Citracal-Vit D 200 mg-250 Tab) 1 Each Tablet, 1 EACH PO DAILY, (Reported) Entered as Reported by: BEATRICE FOSTER on 01/23/20237 Last Action: Converted Denosumab (Prolia) 60 Mg/Ml Disp.syrin, 60 MG SQ L8CECEUP, (Reported) Entered as Reported by: NATY MONTGOMERY on 03/27/22 1051 Last Action: Converted Famotidine (Famotidine) 20 Mg Tablet, 20 MG PO DAILY PRN for HEARTBURN, (Reported) Entered as Reported by: BEATRICE FOSTER on 01/23/20323 Last Action: Continued Furosemide (Furosemide) 20 Mg Tablet, 20 MG PO 0600,1200, (Reported) Entered as Reported by: BEATRICE FOSTER on 01/23/20253 Last Action: Continued Gabapentin (Gabapentin) 100 Mg Capsule, 100 MG PO DAILY, (Reported) Entered as Reported by: BEATRICE FOSTER on 01/23/20237 Last Action: Continued Hydrocodone/Acetaminophen (Hydrocodone-Acetamin 5-325 mg) 5 Mg-325 Mg Tablet, 2 TAB PO Q4H PRN for PAIN-MODERATE (5-7), (Reported) Entered as Reported by: MELVINA WARNER on 02/22/221522 Last Action: Reviewed Levothyroxine Sodium (Levothyroxine Sodium) 25 Mcg Tablet, 25 MCG PO DAILY, (Reported) Entered as Reported by: BEATRICE FOSTER on 01/23/20252 Last Action: Continued Linaclotide (Linzess) 72 Mcg Capsule, 72 MCG PO DAILY, (Reported) Entered as Reported by: BEATRICE FOSTER on 01/23/20243 Last Action: Converted Lisinopril (Lisinopril) 40 Mg Tablet, 40 MG PO DAILY, (Reported) Entered as Reported by: BEATRICE FOSTER on 01/23/20243 Last Action: Reviewed Melatonin (Melatonin) 3 Mg Tablet, 6 MG PO HS, (Reported) Entered as Reported by: MELVINA WARNER on 02/22/221522 Last Action: Continued Memantine HCl (Memantine HCl) 10 Mg Tablet, 10 MG PO 0600,1800, (Reported) Entered as Reported by: BEATRICE FOSTER on 01/23/20314 Last Action: Reviewed Mineral Oil, Light/Mineral Oil (Soothe Xp Eye Drops) 1 %-4.5 % Drops, 1 DROP OU 0600,1800, (Reported) Entered as Reported by: MELVINA WARNER on 02/22/221522 Last Action: Converted Polyethylene Glycol 3350 (Polyethylene Glycol 3350) 17 Gm Powd.pack, 17 GM PO DAILY PRN PRN for CONSTIPATION-2ND LINE, (Reported) Entered as Reported by: BEATRICE FOSTER on 01/23/20248 Last Action: Reviewed Potassium Chloride (Potassium Chloride) 10 Meq Tab.er.prt, 10 MEQ PO 0600,1200, (Reported) Entered as Reported by: BEATRICE FOSTER on 01/23/20327 Last Action: Converted Sertraline HCl (Sertraline HCl) 25 Mg Tablet, 25 MG PO 1800, (Reported) Entered as Reported by: BEATRICE FOSTER on 01/23/20248 Last Action: Converted Tizanidine HCl (Tizanidine HCl) 2 Mg Tablet, 4 MG PO 1800, (Reported) Entered as Reported by: MELVINA WARNER on 02/22/221522 Last Action: Converted Review of Systems Constitutional: see HPI Review of systems unobtainable secondary to the patient's dementia Past Ubtigvq-Tjxkbg-Txgtqi Hx Immunizations Up To Date First/Initial COVID19 Vaccinat: UP TO DATE Second COVID19 Vaccination Mohamud: UP TO DATE Third COVID19 Vaccination Date: UP TO DATE Past Medical History Surgeries: Yes (left hip fracture 01/22/20) Orthopedic Respiratory: No Cardiac: Yes High Cholesterol, Hypertension Neurological: Yes Dementia Genitourinary: No Gastrointestinal: Yes Gastroesophageal Reflux, Chronic Constipation Musculoskeletal: No Endocrine: Yes Hypothyroidsim HEENT: No Cancer: No Psychosocial: Yes Anxiety Nursing Suicide Risk Notes: PT HX OF DEMENTIA; ALERT, BUT DOES NOT ANSWER QUESTIONS TO OBTAIN RISK. BASED ON PRESENTATION RISK APPEARS LOW. Integumentary: No Blood Disorders: No Family Medical History No Pertinent Family Hx Physical Exam Vital Signs Vital Signs - First Documented 03/26/22 23:47 Temp 36.9 Pulse 83 Resp 16 B/P (MAP) 172/94 (120) Pulse Ox 96 O2 Delivery Room Air Capillary Refill : Less Than 3 Seconds Height, Weight, BMI Height: '" Weight: lbs. oz. kg; 27.79 BMI Method: General Appearance: WD/WN, mild distress (Slightly agitated) HEENT: PERRL/EOMI, pharynx normal, other (Patient has ecchymosis on the superior left orbit and lateral orbit; dry mucous membrane) Neck: non-tender, full range of motion Cardiovascular: regular rate, rhythm Respiratory: lungs clear, normal breath sounds, no respiratory distress, no accessory muscle use Gastrointestinal: non tender, soft Hips: left hip bone tenderness, left hip pain, left hip soft tissue tenderness; right hip other (Healing surgical scar right proximal hip) Legs: bilateral leg non-tender, bilateral leg normal inspection, bilateral leg normal range of motion, bilateral leg no evidence of injury; left leg other (Left leg does appear to be very slightly shortened compared to the right side) Knees: bilateral knee non-tender, bilateral knee normal inspection, bilateral knee normal range of motion, bilateral knee no evidence of injury Ankles: bilateral ankle non-tender, bilateral ankle normal inspection, bilateral ankle normal range of motion, bilateral ankle no evidence of injury Feet: bilateral foot non-tender, bilateral foot normal inspection, bilateral foot normal range of motion, bilateral foot no evidence of injury Neurologic/Tendon: normal sensation, normal motor functions, responds to pain Neurologic/Psychiatric: alert Skin: normal color, warm/dry Progress/Results/Core Measures Results/Orders My Orders Orders - SRUTHI ANDRES MD Ct Head/Cervical Spine Wo (03/27/22 00:29) Pelvis With Left Hip 2-3 Views (03/27/22 00:29) Hydrocodone/Apap 5/325 Tablet (Lortab 5 (03/27/22 00:30) Medications Given in ED Current Medications Medications Dose Ordered Sig/Nico Route Start Time Stop Time Status Last Admin Dose Admin Acetaminophen/ Hydrocodone Bitart 1 ea ONCE ONCE PO 03/27/22 00:30 03/27/22 00:31 DC 03/27/22 00:37 1 EA Vital Signs/I&O 03/26/22 03/26/22 23:47 23:47 Temp 36.9 Pulse 83 Resp 16 B/P (MAP) 172/94 (120) Pulse Ox 96 O2 Delivery Room Air Room Air Blood Pressure Mean: 120 Progress Progress Note #1: Time: 03:09 Progress Note I spoke with the patient's , he states that he understands that we do not have neurosurgical capabilities at this facility. If she were to decline and develop a head bleed that he would want her to just have comfort care only. Nurses Thao and [place] as well as the mix house operator were present when I had this conversation with the . Dr. Gonzalez said that he would accept the admission with a hospitalist consult if the patient did not want extraordinary measures should she decline. I am going to put her on medical and we can repeat her CAT scan later today. At this time vital signs are stable. She is in no distress. Progress Note #2: Time: 03:35 Progress Note SBP @ transfer Diagnostic Imaging Diagonstic Imaging: Xray Comments pelvis and left hip xray: (interpreted by me) no fracture or dislocation Diagonstic Imaging: CT Plain Films/CT/US/NM/MRI: head Comments per Stat Rad - "trace right frontal SAH" Diagonstic Imaging: CT Plain Films/CT/US/NM/MRI: c-spine Comments per Stat Rad - no acute cervical spine fractures Departure Communication (Admissions) Time/Spoke to Admitting Phy: 01:[address] Gonzalez Impression Primary Impression: Cerebral contusion Qualified Codes: S06.310A - Contusion and laceration of right cerebrum without loss of consciousness, initial encounter Additional Impressions: Subarachnoid hemorrhage Contusion of left eye Qualified Codes: S05.12XA - Contusion of eyeball and orbital tissues, left eye, initial encounter Disposition: ADMITTED INPATIENT Condition: Stable Admissions Decision to Admit Reason: Admit from ER (Trauma) Decision to Admit/Date: Mar 27, 2022 Time/Decision to Admit Time: 03:11 Departure-Patient Inst. Referrals: YIN KIMBLE MD (PCP/Family) Primary Care Physician SRUTHI ANDRES MD Mar 27, 2022 00:33
[2022-03-27] MEDS ORDERED: CATHETER FLUSH 10 ML SYR IVP PRN ×2 (04:30)
[2022-03-27] MEDS ORDERED: HYDROcodone/APAP 5 MG/325 MG (LORTAB) TAB PO PRN (04:45)
--- NOTE | 2022-03-27 05:44 | Diagnostic Imaging Report ---
Indication: Left hip injury from a fall AP view pelvis and 2 views of the left hip are obtained. There are distended left hip arthroplasty and prior internal fixation of the right hip. There is no acute fracture or dislocation seen. IMPRESSION: Postoperative changes from bilateral hip surgery. No acute abnormality seen. Dictated by: Dictated on workstation # [id number]
[2022-03-27] MEDS: LEVOTHYROXINE 25 MCG (LEVOTHROID) TAB PO SCH (05:49)
[2022-03-27] MEDS: MEMANTINE 10 MG (NAMENDA) TABLET PO SCH ×2 (05:50→18:38)
--- NOTE | 2022-03-27 07:13 | Diagnostic Imaging Report ---
PROCEDURE: CT head and CT cervical spine without contrast. TECHNIQUE: Multiple contiguous axial images were obtained through the brain and cervical spine without the use of intravenous contrast. Sagittal and coronal reformations through the cervical spine were then performed. Auto Exposure Controls were utilized during the CT exam to meet ALARA standards for radiation dose reduction. INDICATION: Left temporal contusion from a fall. CT HEAD: There is soft tissue swelling over the left frontoparietal region. There is a small linear area of increased density within a right frontal sulcus that could be subarachnoid hemorrhage. The ventricles are clear. There are no masses. There are no skull fractures seen. There is a 1 cm calcified lesion adjacent to the outer table of the calvarium in the left frontal region. This has benign appearance and is unchanged compared to 01/22/2020. IMPRESSION: Left frontal temporal scalp hematoma. Suspected tiny area of subarachnoid hemorrhage in the right frontal region. CT cervical spine: Vertebral alignment appears normal. There is advanced degenerative disc changes C5-C6 and C6-C7 and C7-T1. There are hypertrophic degenerative changes of the uncovertebral joints at the same levels. There is no fracture or misalignment. The odontoid appears to be intact. IMPRESSION: Degenerative changes of the cervical spine but no acute abnormality seen. I agree with preliminary interpretation. Dictated by: Dictated on workstation # [id number]
--- NOTE | 2022-03-27 07:14 | History & Physical-Surgical ---
AMY THIBODEAUX 03/27/22 0714: History of Present Illness History of Present Illness Reason for visit/HPI CC: s/p Fall HPI per ED: Ms. Odom is a 77-year-old female who comes to the emergency department from a local nursing facility after a fall at about 1030 this evening. Staff witnessed her scooting out of her room on her bottom at about 1030 tonight. She is recently in the last year had both hips replaced/had surgery on them for fractures. The fall was unwitnessed. It is not certain if she had a loss of consciousness or not. It does not appear based on the medical records provided that she is on anticoagulation. She does have a contusion to the left outer orbit. She is moving her upper extremities without difficulty. She is at baseline quite demented, cannot carry on a conversation. She apparently was complaining of left hip pain with manipulation or movement of that left lower extremity. Review of systems is unobtainable as is the rest of the HPI from the patient secondary to her significant dementia. When I spoke with the patient this morning she was unable to provide any history or answer any questions. History obtained from chart review. ROS was unable to be obtained. Date of Admission Mar 27, 2022 at 03:13 Date Seen by a Provider: Mar 27, 2022 Time Seen by a Provider: 06:25 I consulted on this patient on 03/27/22 07:09 Attending Physician Elijah Flowers MD Admitting Physician Admitting Physician: Anthony Perez DO Attending Physician: Anthony Perez DO Consult Allergies and Home Medications Allergies Coded Allergies: amoxicillin (Verified Allergy, Unknown, 01/22/20) Patient Home Medication List Acetaminophen (Tylenol) 325 Mg Tablet, 650 MG PO Q4H PRN for PAIN-MILD (1-4), (Reported) Entered as Reported by: BEATRICE FOSTER on 01/23/20 0208 Last Action: Reviewed Acetaminophen (Tylenol) 325 Mg Tablet, 650 MG PO 0700,1200,1800, (Reported) Entered as Reported by: MELVINA WARNER on 02/22/22 152 Last Action: Reviewed Alendronate Sodium (Fosamax) 70 Mg Tablet, 70 MG PO FRI, (Reported) Entered as Reported by: MELVINA WARNER on 02/22/221522 Last Action: Reviewed Atorvastatin Calcium (Lipitor) 10 Mg Tablet, 10 MG PO 1800, (Reported) Entered as Reported by: MELVINA WARNER on 02/22/221522 Last Action: Reviewed Bisacodyl (Bisacodyl) 10 Mg Supp.rect, 10 MG RC DAILY PRN PRN for CONSTIPATION- 1ST LINE, (Reported) Entered as Reported by: BEATRICE FOSTER on 01/23/20237 Last Action: Reviewed Calcium Citrate/Vitamin D3 (Citracal-Vit D 200 mg-250 Tab) 1 Each Tablet, 1 EACH PO DAILY, (Reported) Entered as Reported by: BEATRICE FOSTER on 01/23/20237 Last Action: Reviewed Denosumab (Prolia) 60 Mg/Ml Disp.syrin, 60 MG SQ [id number], (Reported) Entered as Reported by: NATY MONTGOMERY on 03/27/22 1051 Last Action: Reviewed Famotidine (Famotidine) 20 Mg Tablet, 20 MG PO DAILY PRN for HEARTBURN, (Reported) Entered as Reported by: BEATRICE FOSTER on 01/23/204 Last Action: Reviewed Furosemide (Furosemide) 20 Mg Tablet, 20 MG PO 0600,1200, (Reported) Entered as Reported by: BEATRICE FOSTER on 01/23/20253 Last Action: Reviewed Gabapentin (Gabapentin) 100 Mg Capsule, 100 MG PO DAILY, (Reported) Entered as Reported by: BEATRICE FOSTER on 01/23/20237 Last Action: Reviewed Hydrocodone/Acetaminophen (Hydrocodone-Acetamin 5-325 mg) 5 Mg-325 Mg Tablet, 2 TAB PO Q4H PRN for PAIN-MODERATE (5-7), (Reported) Entered as Reported by: MELVINA WARNER on 02/22/221522 Last Action: Reviewed Levothyroxine Sodium (Levothyroxine Sodium) 25 Mcg Tablet, 25 MCG PO DAILY, (Reported) Entered as Reported by: BEATRICE FOSTER on 01/23/20252 Last Action: Reviewed Linaclotide (Linzess) 72 Mcg Capsule, 72 MCG PO DAILY, (Reported) Entered as Reported by: BEATRICE FOSTER on 01/23/20 0244 Last Action: Reviewed Lisinopril (Lisinopril) 40 Mg Tablet, 40 MG PO DAILY, (Reported) Entered as Reported by: BEATRICE FOSTER on 01/23/20243 Last Action: Reviewed Melatonin (Melatonin) 3 Mg Tablet, 6 MG PO HS, (Reported) Entered as Reported by: MELVINA WARNER on 02/22/221522 Last Action: Reviewed Memantine HCl (Memantine HCl) 10 Mg Tablet, 10 MG PO 0600,1800, (Reported) Entered as Reported by: BEATRICE FOSTER on 01/23/205 Last Action: Reviewed Mineral Oil, Light/Mineral Oil (Soothe Xp Eye Drops) 1 %-4.5 % Drops, 1 DROP OU 0600,1800, (Reported) Entered as Reported by: MELVINA WARNER on 02/22/221522 Last Action: Reviewed Polyethylene Glycol 3350 (Polyethylene Glycol 3350) 17 Gm Powd.pack, 17 GM PO DAILY PRN PRN for CONSTIPATION-2ND LINE, (Reported) Entered as Reported by: BEATRICE FOSTER on 01/23/20248 Last Action: Reviewed Potassium Chloride (Potassium Chloride) 10 Meq Tab.er.prt, 10 MEQ PO 0600,1200, (Reported) Entered as Reported by: BEATRICE FOSTER on 01/23/20327 Last Action: Reviewed Sertraline HCl (Sertraline HCl) 25 Mg Tablet, 25 MG PO 1800, (Reported) Entered as Reported by: BEATRICE FOSTER on 01/23/20248 Last Action: Reviewed Tizanidine HCl (Tizanidine HCl) 2 Mg Tablet, 4 MG PO 1800, (Reported) Entered as Reported by: MELVINA WARNER on 02/22/221522 Last Action: Reviewed Past Vqhrzvn-Yxzmfg-Xxryeg Hx Patient Social History Pt feels they are or have been: Unable to obtain Immunizations Up To Date Date of Influenza Vaccine: Feb 13, 2020 First/Initial COVID19 Vaccinat: UP TO DATE Second COVID19 Vaccination Mohamud: UP TO DATE Date of Pneumonia Vaccine: Jun 06, 2019 Current Status status: No status: No Advance Directives: Yes Advance Directive Location: Copy placed in chart Communicates: Verbally Primary Language: Greek Preferred Spoken Language: Greek Is interpretation needed?: No Implanted or Applied Medical D: Orthopedic hardware Past Medical History Surgeries: Orthopedic High Cholesterol, Hypertension Dementia Gastroesophageal Reflux, Chronic Constipation Hypothyroidsim Anxiety Nursing Suicide Risk Notes: PT HX OF DEMENTIA; ALERT, BUT DOES NOT ANSWER QUESTIONS TO OBTAIN RISK. BASED ON PRESENTATION RISK APPEARS LOW. Blood Disorders: No Family Medical History No Pertinent Family Hx Physical Exam Vital Signs Vital Signs - First Documented 03/26/22 23:47 Temp 36.9 Pulse 83 Resp 16 B/P (MAP) 172/94 (120) Pulse Ox 96 O2 Delivery Room Air Capillary Refill : Less Than 3 Seconds Height, Weight, BMI Height: '" Weight: lbs. oz. kg; 24.49 BMI Method: General Appearance: No Apparent Distress, Anxious (Patient unable to answer questions. Alert and was mumbling.) HEENT: PERRL/EOMI, Moist Mucous Membranes, Other (Bruising around left orbit) Neck: Non Tender, Supple Respiratory: Chest Non Tender, Lungs Clear, Normal Breath Sounds, No Accessory Muscle Use, No Respiratory Distress Cardiovascular: Regular Rate, Rhythm, No Edema, Normal Peripheral Pulses Neurologic/Psychiatric: Alert; No Oriented x3; Disoriented Skin: Warm/Dry, Other (Bruising around left orbit) Data Review Radiology NAME: WILLIAM JACKSON [facility] REC#: [id number] PT STATUS: ADM Rosemary : 1945 PHYSICIAN: SRUTHI ANDRES MD ADMIT DATE: 03/27/22 Signed Date of Exam:03/27/22 PELVIS WITH LEFT HIP 2-3 VIEWS Indication: Left hip injury from a fall AP view pelvis and 2 views of the left hip are obtained. There are distended left hip arthroplasty and prior internal fixation of the right hip. There is no acute fracture or dislocation seen. IMPRESSION: Postoperative changes from bilateral hip surgery. No acute abnormality seen. Dictated by: Dictated on workstation # [id number] Dict: 03/27/22 0542 Trans: 03/27/2243 [facility] [id number] Interpreted by: EVELYN LARKIN MD Electronically signed by: EVELYN LARKIN MD 03/27/22 0543 Assessment/Plan Assessment/Plan Admission Diagonsis Trace right frontal subarachnoid hemorrhage Assessment/Plan S/p Fall Orbital bruising Right frontal subarachnoid hemorrhage As per stat read on CT No official report as of the time of this note Trace Dementia Per chart review patient's family understands we do not have neurosurgical capabilities at this facilities were patient to deteriorate Continue to monitor patient and provide supportive care Awaiting official CT report to assess next steps in care ANTHONY PEREZ DO 03/27/22 1446: History of Present Illness History of Present Illness Reason for visit/HPI Pt seen and examined, she has dementia and doesn't really answer any questions. Her and son were at bedside. She was sleeping comfortably when I saw her. Info from chart and family. Time Seen by a Provider: 12:17 Allergies and Home Medications Allergies Coded Allergies: amoxicillin (Verified Allergy, Unknown, 01/22/20) Patient Home Medication List Home Medication List Reviewed: Yes Acetaminophen (Tylenol) 325 Mg Tablet, 650 MG PO Q4H PRN for PAIN-MILD (1-4), (Reported) Entered as Reported by: BEATRICE FOSTER on 01/23/20 0208 Last Action: Reviewed Acetaminophen (Tylenol) 325 Mg Tablet, 650 MG PO 0700,1200,1800, (Reported) Entered as Reported by: MELVINA WARNER on 02/22/22 152 Last Action: Reviewed Alendronate Sodium (Fosamax) 70 Mg Tablet, 70 MG PO FRI, (Reported) Entered as Reported by: MELVINA WARNER on 02/22/22 152 Last Action: Reviewed Atorvastatin Calcium (Lipitor) 10 Mg Tablet, 10 MG PO 1800, (Reported) Entered as Reported by: MELVINA WARNER on 02/22/22 152 Last Action: Reviewed Bisacodyl (Bisacodyl) 10 Mg Supp.rect, 10 MG RC DAILY PRN PRN for CONSTIPATION- 1ST LINE, (Reported) Entered as Reported by: BEATRICE FOSTER on 01/23/20 023 Last Action: Reviewed Calcium Citrate/Vitamin D3 (Citracal-Vit D 200 mg-250 Tab) 1 Each Tablet, 1 EACH PO DAILY, (Reported) Entered as Reported by: BEATRICE FOSTER on 01/23/20237 Last Action: Reviewed Denosumab (Prolia) 60 Mg/Ml Disp.syrin, 60 MG SQ [id number], (Reported) Entered as Reported by: NATY MONTGOMERY on 03/27/22 1051 Last Action: Reviewed Famotidine (Famotidine) 20 Mg Tablet, 20 MG PO DAILY PRN for HEARTBURN, (Reported) Entered as Reported by: BEATRICE FOSTER on 01/23/20 0324 Last Action: Reviewed Furosemide (Furosemide) 20 Mg Tablet, 20 MG PO 0600,1200, (Reported) Entered as Reported by: BEATRICE FOSTER on 01/23/204 Last Action: Reviewed Gabapentin (Gabapentin) 100 Mg Capsule, 100 MG PO DAILY, (Reported) Entered as Reported by: BEATRICE FOSTER on 01/23/208 Last Action: Reviewed Hydrocodone/Acetaminophen (Hydrocodone-Acetamin 5-325 mg) 5 Mg-325 Mg Tablet, 2 TAB PO Q4H PRN for PAIN-MODERATE (5-7), (Reported) Entered as Reported by: MELVINA WARNER on 02/22/221522 Last Action: Reviewed Levothyroxine Sodium (Levothyroxine Sodium) 25 Mcg Tablet, 25 MCG PO DAILY, (Reported) Entered as Reported by: BEATRICE FOSTER on 01/23/20252 Last Action: Reviewed Linaclotide (Linzess) 72 Mcg Capsule, 72 MCG PO DAILY, (Reported) Entered as Reported by: BEATRICE FOSTER on 01/23/20243 Last Action: Reviewed Lisinopril (Lisinopril) 40 Mg Tablet, 40 MG PO DAILY, (Reported) Entered as Reported by: BEATRICE FOSTER on 01/23/20243 Last Action: Reviewed Melatonin (Melatonin) 3 Mg Tablet, 6 MG PO HS, (Reported) Entered as Reported by: MELVINA WARNER on 02/22/221522 Last Action: Reviewed Memantine HCl (Memantine HCl) 10 Mg Tablet, 10 MG PO 0600,1800, (Reported) Entered as Reported by: BEATRICE FOSTER on 01/23/205 Last Action: Reviewed Mineral Oil, Light/Mineral Oil (Soothe Xp Eye Drops) 1 %-4.5 % Drops, 1 DROP OU 0600,1800, (Reported) Entered as Reported by: MELVINA WARNER on 02/22/221522 Last Action: Reviewed Polyethylene Glycol 3350 (Polyethylene Glycol 3350) 17 Gm Powd.pack, 17 GM PO DAILY PRN PRN for CONSTIPATION-2ND LINE, (Reported) Entered as Reported by: BEATRICE FOSTER on 01/23/209 Last Action: Reviewed Potassium Chloride (Potassium Chloride) 10 Meq Tab.er.prt, 10 MEQ PO 0600,1200, (Reported) Entered as Reported by: BEATRICE FOSTER on 01/23/20 0328 Last Action: Reviewed Sertraline HCl (Sertraline HCl) 25 Mg Tablet, 25 MG PO 1800, (Reported) Entered as Reported by: BEATRICE FOSTER on 01/23/20248 Last Action: Reviewed Tizanidine HCl (Tizanidine HCl) 2 Mg Tablet, 4 MG PO 1800, (Reported) Entered as Reported by: MELVINA WARNER on 02/22/22 1523 Last Action: Reviewed Past Cvomrbk-Mczrxg-Iupzzl Hx Patient Social History Marrital Status: Smoking Status: Never a Smoker Use of E-Cig and/or Vaping dev: No Substance use?: No Alcohol Use?: No Review of Systems ROS-Unable to Obtain: pt does not answer questions Constitutional: other (unabe to obtain) Physical Exam General Appearance: No Apparent Distress HEENT: Moist Mucous Membranes, Other (Bruising around left orbit) Neck: Non Tender, Supple Respiratory: Lungs Clear, Normal Breath Sounds, No Accessory Muscle Use, No Respiratory Distress Cardiovascular: Regular Rate, Rhythm, No Murmur Gastrointestinal: No Distended, No Guarding Neurologic/Psychiatric: Disoriented Skin: Warm/Dry, Other (Bruising around left orbit) Assessment/Plan Assessment/Plan Admission Diagonsis Fall Possible Subarachnoid hemorrhage Admission Status: Observation Assessment/Plan S/p Fall Orbital bruising Right frontal subarachnoid hemorrhage Dementia Hypertension - ordered IV Vasotec Patient's family understands we do not have neurosurgical capabilities at this facilities; if pt were to deteriorate. Pt has repeat CT ordered for 14:00, understands it is only to determine if she is going to get worse faster. He still does not want anything done for pt. Will continue to monitor patient and provide supportive care, possibly back to residential today. Supervisory-Addendum Brief Verification & Attestation Participated in pt care: history, MDM, physical Personally performed: exam, history, MDM, supervision of care Care discussed with: Medical Student Procedures: n/a Verification and Attestation of Medical Student E/M Service A medical student performed and documented this service. I then reviewed and verified all information documented by the medical student and made modifications to such information, when appropriate. I personally performed a physical exam, medical decision making and then discussed any differences between the notes and made revisions as necessary to create one note. Anthony Perez , 03/27/22 , 14:46 AMY THIBODEAUX Mar 27, 2022 07:14 ANTHONY PEREZ DO Mar 27, 2022 14:46
--- NOTE | 2022-03-27 08:31 | Consultation - Hospitalist ---
HPI History of Present Illness: HPI/Chief Complaint Patient is a 77-year-old female known to me from recent admission due to hip fracture who presented to the ER due to fall. Reportedly she fell at her nursing facility around 10:30 PM last night was brought in for evaluation. She has baseline dementia and is unable to participate in exam and all history is obtained from the records because of this. She has large bruising around her left eye there is a sitter at bedside who states she is attempting to get out of bed multiple times and has to be redirected. In the ER she was found to have a tiny subarachnoid hemorrhage. Her family elected to not pursue any neurosurgical evaluation and is considering comfort care here per the records. Exam Limitations: clinical condition Date Seen 03/27/22 Attending Physician Elijah Flowers MD PCP Admitting Physician: Jorge Gonzalez DO Attending Physician: Jorge Gonzalez DO Referring Physician Date of Admission Mar 27, 2022 at 03:13 Home Medications & Allergies Home Medications Reviewed patient Home Medication Reconciliation performed by pharmacy medication reconciliations auto electrical technician and/or nursing. Patients Allergies have been reviewed. Allergies Allergies Coded Allergies amoxicillin (Verified Allergy, Unknown, 01/22/20) Past Mcqxcev-Qvvhak-Ykqfrw Hx Patient Social History Pt feels they are or have been: Unable to obtain Immunizations Up To Date Date of Influenza Vaccine: Feb 13, 2020 First/Initial COVID19 Vaccinat: UP TO DATE Second COVID19 Vaccination Mohamud: UP TO DATE Date of Pneumonia Vaccine: Jun 06, 2019 Current Status status: No status: No Advance Directives: Yes Advance Directive Location: Copy placed in chart Communicates: Verbally Primary Language: Spanish Preferred Spoken Language: Spanish Is interpretation needed?: No Implanted or Applied Medical D: Orthopedic hardware Past Medical History Surgeries: Orthopedic High Cholesterol, Hypertension Dementia Gastroesophageal Reflux, Chronic Constipation Hypothyroidsim Anxiety Nursing Suicide Risk Notes: PT HX OF DEMENTIA; ALERT, BUT DOES NOT ANSWER QUESTIONS TO OBTAIN RISK. BASED ON PRESENTATION RISK APPEARS LOW. Blood Disorders: No Family Medical History No Pertinent Family Hx Review of Systems Constitutional: see HPI Physical Exam Physical Exam Vital Signs Vital Signs - First Documented 03/26/22 23:47 Temp 36.9 Pulse 83 Resp 16 B/P (MAP) 172/94 (120) Pulse Ox 96 O2 Delivery Room Air Capillary Refill : Less Than 3 Seconds Height, Weight, BMI Height: '" Weight: lbs. oz. kg; 24.49 BMI Method: General Appearance: No Apparent Distress, Chronically ill, Thin HEENT: PERRL/EOMI, Moist Mucous Membranes; No Scleral Icterus (R); Other (Bruising and edema around left orbit) Neck: Normal Inspection, Supple Respiratory: Lungs Clear, No Accessory Muscle Use, No Respiratory Distress Cardiovascular: Regular Rate, Rhythm, No Edema, Normal Peripheral Pulses Gastrointestinal: Normal Bowel Sounds, Non Tender, Soft Genital/Rectal: Other (king in place) Neurologic/Psychiatric: Alert; No Oriented x3; Disoriented (mumbled throughout exam) Skin: Warm/Dry, Ecchymosis (left orbit) Results Results/Procedures Labs Patient resulted labs reviewed. Imaging: Reviewed Imaging Report Imaging [facility], [place] NAME: WILLIAM JACKSON [facility] REC#: [id number] PT STATUS: ADM Rosemary : 1945 PHYSICIAN: SRUTHI ANDRES MD ADMIT DATE: 03/27/22 Signed Date of Exam:03/27/22 CT HEAD/CERVICAL SPINE WO PROCEDURE: CT head and CT cervical spine without contrast. TECHNIQUE: Multiple contiguous axial images were obtained through the brain and cervical spine without the use of intravenous contrast. Sagittal and coronal reformations through the cervical spine were then performed. Auto Exposure Controls were utilized during the CT exam to meet ALARA standards for radiation dose reduction. INDICATION: Left temporal contusion from a fall. CT HEAD: There is soft tissue swelling over the left frontoparietal region. There is a small linear area of increased density within a right frontal sulcus that could be subarachnoid hemorrhage. The ventricles are clear. There are no masses. There are no skull fractures seen. There is a 1 cm calcified lesion adjacent to the outer table of the calvarium in the left frontal region. This has benign appearance and is unchanged compared to 01/22/2020. IMPRESSION: Left frontal temporal scalp hematoma. Suspected tiny area of subarachnoid hemorrhage in the right frontal region. CT cervical spine: Vertebral alignment appears normal. There is advanced degenerative disc changes C5-C6 and C6-C7 and C7-T1. There are hypertrophic degenerative changes of the uncovertebral joints at the same levels. There is no fracture or misalignment. The odontoid appears to be intact. IMPRESSION: Degenerative changes of the cervical spine but no acute abnormality seen. I agree with preliminary interpretation. Dictated by: Dictated on workstation # [id number] Dict: 03/27/22 0704 Trans: 03/27/22 08 CVB [id number] Interpreted by: EVELYN LARKIN MD Electronically signed by: EVELYN LARKIN MD 03/27/22800 [facility] [place] NAME: WILLIAM JACKSON [facility] REC#: [id number] PT STATUS: ADM Rosemary : 1945 PHYSICIAN: SRUTHI ANDRES MD ADMIT DATE: 03/27/22 Signed Date of Exam:03/27/22 PELVIS WITH LEFT HIP 2-3 VIEWS Indication: Left hip injury from a fall AP view pelvis and 2 views of the left hip are obtained. There are distended left hip arthroplasty and prior internal fixation of the right hip. There is no acute fracture or dislocation seen. IMPRESSION: Postoperative changes from bilateral hip surgery. No acute abnormality seen. Dictated by: Dictated on workstation # [id number] Dict: 03/27/22 0542 Trans: 03/27/22 05 TC [id number] Interpreted by: EVELYN LARKIN MD Electronically signed by: EVELYN LARKIN MD 03/27/22 0543 Assessment/Plan Assessment and Plan Assess & Plan/Chief Complaint SAH Alzheimer's dementia Management per primary Would benefit from hospice given baseline dementia and now SAH HTN HLD GERD Hypothyrodism Recent hip fx s/p operative repair Continue home meds DVT prophylaxis: SCDs only due to SAH MIRIAN STAPLES MD Mar 27, 2022 08:31
[2022-03-27] MEDS: FAMOTIDINE 20 MG (PEPCID) TABLET PO SCH (09:02)
[2022-03-27] MEDS: GABAPENTIN 100 MG (NEURONTIN) CAP PO SCH (09:02)
[2022-03-27] MEDS: lisINopril 40 MG (PRINIVIL) TABLET PO SCH (09:02)
[2022-03-27] MEDS ORDERED: DENO60DI SQ (10:51)
[2022-03-27] MEDS ORDERED: ENALAPRIL 2.5 MG (VASOTEC) TAB PO PRN (14:15)
--- NOTE | 2022-03-27 16:34 | Diagnostic Imaging Report ---
PROCEDURE: CT head without contrast. TECHNIQUE: Multiple contiguous axial images were obtained through the brain without the use of intravenous contrast. Auto Exposure Controls were utilized during the CT exam to meet ALARA standards for radiation dose reduction. INDICATION: Dementia, Alzheimer's, history of hemorrhage. COMPARISON: Exam compared with study of 03/27/2022. FINDINGS: Left preseptal and supraorbital soft tissue injury is redemonstrated. At today's exam, no appreciable hemorrhage is found. In particular, on the previous exam, there was hyperdensity in the right frontal subarachnoid space which can no longer be detected. There is no subdural or epidural collection. No appreciable calvarial fracture deformity, pneumocephalus, or hemo-sinus. Cerebral cortical atrophy and white matter disease, stable and chronic. IMPRESSION: At follow-up, there was no appreciable hemorrhage, infarct, hydrocephalus, or adverse change. Background chronic senescent findings are stable with left periorbital soft tissue swelling redemonstrated. Dictated by: Dictated on workstation # [id number]
[2022-03-27] MEDS ORDERED: FAMOTIDINE 20 MG (PEPCID) TABLET PO PRN (17:15)
[2022-03-27] MEDS ORDERED: NON-FORMULARY MEDICATION 1 EA EA (Alendronate Sodium (Fosamax) 70 MG) PO SCH (17:15)
[2022-03-27] MEDS ORDERED: NON-FORMULARY MEDICATION 1 EA EA (Denosumab (Prolia) 60 MG) SQ SCH (17:15)
[2022-03-27] MEDS ORDERED: SERTRALINE 50 MG (ZOLOFT) TABLET PO SCH (18:00)
[2022-03-27] MEDS ORDERED: [UNRECOGNIZED DRUG - OTHER] OU SCH (18:00)
[2022-03-27] MEDS ORDERED: MINERAL OIL OU SCH (18:00)
[2022-03-27] MEDS ORDERED: NON-FORMULARY MEDICATION 1 EA EA (Sertraline HCl 25 MG) PO SCH (18:00)
[2022-03-27] MEDS ORDERED: MINERAL OIL LIGHT OU SCH (18:00)
[2022-03-27] MEDS ORDERED: AtorvaSTATin TABLET 10 MG TABLET PO SCH (18:00)
[2022-03-27] MEDS ORDERED: ARTIFICAL TEARS 0.4 ML UNIT DOSE (REFRESH PLUS) OU SCH (18:00)
[2022-03-27] MEDS ORDERED: TIZANIDINE HCL 4 MG PO SCH (18:00)
[2022-03-27] MEDS ORDERED: MELATONIN 3 MG TABLET PO SCH (21:00)
[2022-03-27] MEDS ORDERED: RT-ALBUTEROL SULF 2.5 MG/3 ML PRE-MIX VIAL INH PRN (23:15)
[2022-03-28 03:29] VITALS: BP 139/73
[2022-03-28] MEDS ORDERED: FUROSEMIDE 20 MG (LASIX) TAB PO SCH (06:00)
[2022-03-28] MEDS ORDERED: KCL 10 MEQ TAB (MICRO K) PO SCH (06:00)
[2022-03-28] MEDS ORDERED: NON-FORMULARY MEDICATION 1 EA EA (Potassium Chloride 10 MEQ) PO SCH (06:00)
[2022-03-28] MEDS: LEVOTHYROXINE 25 MCG (LEVOTHROID) TAB PO SCH (06:05)
[2022-03-28] MEDS: MEMANTINE 10 MG (NAMENDA) TABLET PO SCH (06:05)
[2022-03-28] MEDS ORDERED: CALCIUM CARB + VIT D 600 MG (CALCARB + D) TAB PO SCH (07:00)
[2022-03-28 07:26] VITALS: BP 167/84
--- NOTE | 2022-03-28 08:00 | Progress Note - Surgery ---
AMY THIBODEAUX 03/28/22 0800: Subjective Date Seen by a Provider: Mar 28, 2022 Time Seen by a Provider: 07:26 Subjective/Events-last exam Ms. Sommer is being followed after a fall for trace right frontal subarachnoid headache. She is demented at baseline and unable to provide a history. She had a sitter at bedside with her this morning. Follow-up CT from yesterday did not show any changes from the initial CT. She is going back to the nursing facility today. Unable to obtain ROS. Objective Exam Vital Signs Date Time Temp Pulse Resp B/P (MAP) Pulse Ox O2 Delivery O2 Flow Rate FiO2 03/28/22 07:26 36.8 92 20 167/84 (111) 95 Room Air 03/28/22 03:29 36.6 84 20 139/73 (95) 92 Room Air 03/27/22 23:26 36.4 74 20 146/67 (93) 95 Room Air 03/27/22 23:00 36.9 91 94 21 03/27/22 19:41 Room Air 03/27/22 19:01 36.9 91 22 158/70 (99) 94 Room Air 03/27/22 16:15 166/72 (103) 03/27/22 15:11 36.8 78 20 164/77 (106) 95 Room Air 03/27/22 12:19 37.1 101 19 171/81 (111) 99 Room Air 03/27/22 08:00 Room Air I & O 03/28/22 07:00 Intake Total 1720 ml Balance 1720 ml Capillary Refill : Less Than 3 Seconds General Appearance: No Apparent Distress, Other (Confused) HEENT: Moist Mucous Membranes, Other (Bruising around left orbit) Neck: Non Tender, Supple Respiratory: Lungs Clear, Normal Breath Sounds, No Accessory Muscle Use, No Respiratory Distress Cardiovascular: Regular Rate, Rhythm, No Murmur, Normal Peripheral Pulses Peripheral Pulses: 2+ Radial Pulses (R), 2+ Radial Pulses (L) Gastrointestinal: non tender, soft Neurologic/Psychiatric: Disoriented Skin: Warm/Dry, Other (Bruising around left orbit) Assessment/Plan Assessment/Plan Assessment/Plan S/p Fall Orbital bruising Right frontal subarachnoid hemorrhage Dementia Hypertension Follow-up CT showed no acute changes or progression from initial CT Discharge to intermediate today ANTHONY PEREZ DO 03/28/22 1509: Supervisory-Addendum Brief Verification & Attestation Participated in pt care: other (pt left before I could see her) Personally performed: other (pt left before I could see her) Care discussed with: Medical Student Procedures: n/a pt left before I could see her, I did speak with pt's family yesterday about sending her home and had discussed CT with nurse. Talked to my med student and nurse this am before pt was to leave. I had asked nurse to please let me know before pt left; unfortunately, nurse was in another room and did not see them take pt out. Family was not there, but did not call or have any questions this am. AMY THIBODEAUX Mar 28, 2022 08:00 ANTHONY PEREZ DO Mar 28, 2022 15:09
[2022-03-28] MEDS: GABAPENTIN 100 MG (NEURONTIN) CAP PO SCH (08:16)
[2022-03-28] MEDS: lisINopril 40 MG (PRINIVIL) TABLET PO SCH (08:16)
[2022-03-28] MEDS: FAMOTIDINE 20 MG (PEPCID) TABLET PO SCH (08:17)
[2022-03-28] MEDS ORDERED: GABAPENTIN 100 MG (NEURONTIN) CAP PO SCH (09:00)
[2022-03-28] MEDS ORDERED: NON-FORMULARY MEDICATION 1 EA EA (Linaclotide (Linzess) 72 MCG) PO SCH ×3 (09:00→11:45)
[2022-03-28] MEDS ORDERED: ARTIFICAL TEARS 0.4 ML UNIT DOSE (REFRESH PLUS) OU SCH (09:00)
[2022-03-28] MEDS ORDERED: LEVOTHYROXINE 25 MCG (LEVOTHROID) TAB PO SCH (09:00)
[2022-09-12] MEDS ORDERED: DENOSUMAB 60 MG/1 ML (PROLIA) SQ SCH (09:00)
== END 2022-03-28 11:15 ==
LOC: EDUNIT# 23:45 → ER 23:46 → 4TH 23:47 → UNDOADMOB 03-27 03:13 → 4TH 03-27 03:13 → UNDODISOB 03-28 11:15
PROVIDERS: ADMIT Surgery; ATTEND Surgery
DX: S06.6X9A Traumatic subarachnoid hemorrhage with loss of consciousness of unspecified duration, initial encounter (principal); R40.2412 Glasgow coma scale score 13-15, at arrival to emergency department; S00.12XA Contusion of left eyelid and periocular area, initial encounter; I10 Essential (primary) hypertension; E78.5 Hyperlipidemia, unspecified; G30.9 Alzheimer's disease, unspecified; F02.80 Dementia in other diseases classified elsewhere, unspecified severity, without behavioral disturbance, psychotic disturbance, mood disturbance, and anxiety; Z66 Do not resuscitate; K21.9 Gastro-esophageal reflux disease without esophagitis; E03.9 Hypothyroidism, unspecified; Z96.643 Presence of artificial hip joint, bilateral; Z88.1 Allergy status to other antibiotic agents; W19.XXXA Unspecified fall, initial encounter; Y92.129 Unspecified place in nursing home as the place of occurrence of the external cause
CPT/HCPCS: 70450; 72125; G0378

== ENCOUNTER → 2022-04-12 | Outpatient (CLI) | payer MEDICARE ==
[~2022-04-12] MED LIST changes: +DENO60DI SQ
--- NOTE | 2022-04-12 10:43 | Diagnostic Imaging Report ---
INDICATION: Right femur fracture. TIME OF EXAM: 8:59 AM. COMPARISON: Correlation is made with the prior radiograph from 03/22/2022. FINDINGS: An intramedullary hellen and compression screw transfix the fracture of the proximal femur. The fracture line remains clearly visible. There does appear to be some callus formation present with some slight blurring of the fracture lines, however. Overall alignment is anatomic. Alignment at the hip and knee is normal. IMPRESSION: Postop changes of ORIF of a proximal right femur fracture. There does appear to be some healing of the fracture although the fracture line does remain partially visible. Dictated by: Dictated on workstation # [id number]
== END ==
LOC: ORTHO 08:49
PROVIDERS: ATTEND Orthopaedic Surgery
DX: S72.141D Displaced intertrochanteric fracture of right femur, subsequent encounter for closed fracture with routine healing (principal); X58.XXXD Exposure to other specified factors, subsequent encounter
CPT/HCPCS: 73552

== ENCOUNTER → 2022-06-14 | Outpatient (CLI) | payer MEDICARE ==
[~2022-06-14] MED LIST changes: -ALEN70TA2 PO; +ALEN70TA85 PO; +POTA-177 PO; -POTA10TA37 PO
--- NOTE | 2022-06-14 10:04 | Diagnostic Imaging Report ---
INDICATION: Followup right hip surgery. TIME OF EXAM: 8:44 AM. COMPARISON: Correlation is made with the prior radiographs from 04/12/2022. FINDINGS: An intramedullary hellen and compression screw transfix the right hip. There is some blurring of the fracture in the subtrochanteric portion of the right hip, consistent with some healing. The fracture line does remain partially visible. The overall alignment is anatomic. There is normal femoroacetabular alignment. IMPRESSION: Healing proximal femur fracture. Alignment is anatomic. Dictated by: Dictated on workstation # [id number]
== END ==
LOC: ORTHO 08:27
PROVIDERS: ATTEND Orthopaedic Surgery
DX: Z47.89 Encounter for other orthopedic aftercare (principal); S72.91XD Unspecified fracture of right femur, subsequent encounter for closed fracture with routine healing; X58.XXXD Exposure to other specified factors, subsequent encounter
CPT/HCPCS: 73552

== ENCOUNTER → 2022-09-26 | Outpatient (CLI) | payer MEDICARE ==
[~2022-09-26] MED LIST changes: +DENOSUMAB 60 MG/1 ML (PROLIA) SQ ONE; -POTA10CA43 PO; +POTA10CA44 PO
[2022-09-26 11:30] VITALS: BP 133/65
== END ==
LOC: SDC 11:20
PROVIDERS: ATTEND Nurse Practitioner Family
DX: M81.0 Age-related osteoporosis without current pathological fracture (principal)
CPT/HCPCS: 96372

== ENCOUNTER 2023-01-18 20:28 | Emergency (ER) | payer MEDICARE ==
[~2023-01-18] VITALS: Ht 157 cm; Wt 68.5 kg
[~2023-01-18 20:28] MED LIST changes: -DENOSUMAB 60 MG/1 ML (PROLIA) SQ ONE
--- NOTE | 2023-01-18 20:50 | ED Fall/Injury ---
General Chief Complaint: Trauma-Non Activation Stated Complaint: FALL Nursing Triage Note: brought in by [facility] for unwitnessed fall forward striking face. abraisions to face. no loc reported. pt denies c/o pain. normal pt mentality per [facility] staff. Source: EMS, [facility] records Exam Limitations: other (PT WITH DEMENTIA, UNABLE TO PROVIDE ANY INFORMATION) History of Present Illness Date Seen by Provider: January 18, 2023 Time Seen by Provider: 20:30 Initial Comments PT ARRIVES VIA EMS FROM [facility] PT WITH KNOWN DEMENTIA, AND IS REPORTEDLY AT NORMAL BASELINE--PT IS UNABLE TO ANSWER ANY QUESTIONS PT HAD AN UNWITNESSED FALL--DETAILS ARE UNKNOWN PT HAS ABRASIONS TO NOSE, ABOVE UPPER LIP, AND BRUISING TO FOREHEAD NO BLEEDING ANYWHERE PT IS AWAKE AND SMILING. PT TALKS AND SPEECH IS CLEAR BUT NON-SENSICAL. WHEN ASKED IF SHE HURTS ANYWHERE, SHE GIVES NON-SENSICAL ANSWERS PT IS NOT ON ASPIRIN OR BLOOD THINNERS PT HAS PRIOR RIGHT HIP FX 02/2022, AND PRIOR LEFT HIP FX 01/2020 Location Injury Occurred: [facility] Allergies and Home Medications Allergies Coded Allergies: amoxicillin (Verified Allergy, Unknown, 01/22/20) Patient Home Medication List Home Medication List Reviewed: Yes Acetaminophen (Tylenol) 325 Mg Tablet, 650 MG PO Q4H PRN for PAIN-MILD (1-4), (Reported) Entered as Reported by: BEATRICE FOSTER on 01/23/20 0208 Acetaminophen (Tylenol) 325 Mg Tablet, 650 MG PO 0700,1200,1800, (Reported) Entered as Reported by: MELVINA WARNER on 02/22/22 152 Alendronate Sodium (Fosamax) 70 Mg Tablet, 70 MG PO FRI, (Reported) Entered as Reported by: MELVINA WARNER on 02/22/22 152 Atorvastatin Calcium (Lipitor) 10 Mg Tablet, 10 MG PO 1800, (Reported) Entered as Reported by: MELVINA WARNER on 02/22/22 152 Bisacodyl (Bisacodyl) 10 Mg Supp.rect, 10 MG RC DAILY PRN PRN for CONSTIPATION- 1ST LINE, (Reported) Entered as Reported by: BEATRICE FOSTER on 01/23/20 0238 Calcium Citrate/Vitamin D3 (Citracal-Vit D 200 mg-250 Tab) 1 Each Tablet, 1 EACH PO DAILY, (Reported) Entered as Reported by: BEATRICE FOSTER on 01/23/20 023 Denosumab (Prolia) 60 Mg/Ml Disp.syrin, 60 MG SQ [id number], (Reported) Entered as Reported by: NATY MONTGOMERY on 03/27/22 1051 Famotidine (Famotidine) 20 Mg Tablet, 20 MG PO DAILY PRN for HEARTBURN, (Reported) Entered as Reported by: BEATRICE FOSTER on 01/23/20 032 Furosemide (Furosemide) 20 Mg Tablet, 20 MG PO 0600,1200, (Reported) Entered as Reported by: BEATRICE FOSTER on 01/23/20 025 Gabapentin (Gabapentin) 100 Mg Capsule, 100 MG PO DAILY, (Reported) Entered as Reported by: BEATRICE FOSTER on 01/23/20 023 Hydrocodone/Acetaminophen (Hydrocodone-Acetamin 5-325 mg) 5 Mg-325 Mg Tablet, 2 TAB PO Q4H PRN for PAIN-MODERATE (5-7), (Reported) Entered as Reported by: MELVINA WARNER on 02/22/22 152 Levothyroxine Sodium (Levothyroxine Sodium) 25 Mcg Tablet, 25 MCG PO DAILY, (Reported) Entered as Reported by: BEATRICE FOSTER on 01/23/20252 Linaclotide (Linzess) 72 Mcg Capsule, 72 MCG PO DAILY, (Reported) Entered as Reported by: BEATRICE FOSTER on 01/23/20 024 Lisinopril (Lisinopril) 40 Mg Tablet, 40 MG PO DAILY, (Reported) Entered as Reported by: BEATRICE FOSTER on 01/23/20 024 Melatonin (Melatonin) 3 Mg Tablet, 6 MG PO HS, (Reported) Entered as Reported by: MELVINA WARNER on 02/22/22 152 Memantine HCl (Memantine HCl) 10 Mg Tablet, 10 MG PO 0600,1800, (Reported) Entered as Reported by: BEATRICE FOSTER on 01/23/20 0315 Mineral Oil, Light/Mineral Oil (Soothe Xp Eye Drops) 1 %-4.5 % Drops, 1 DROP OU 0600,1800, (Reported) Entered as Reported by: MELVINA WARNER on 02/22/22 1523 Polyethylene Glycol 3350 (Polyethylene Glycol 3350) 17 Gm Powd.pack, 17 GM PO DAILY PRN PRN for CONSTIPATION-2ND LINE, (Reported) Entered as Reported by: BEATRICE FOSTER on 01/23/20 0249 Potassium Chloride (Potassium Chloride) 10 Meq Tab.er.prt, 10 MEQ PO 0600,1200, (Reported) Entered as Reported by: BEATRICE FOSTER on 01/23/20 0328 Sertraline HCl (Sertraline HCl) 25 Mg Tablet, 25 MG PO 1800, (Reported) Entered as Reported by: BEATRICE FOSTER on 01/23/20 0249 Tizanidine HCl (Tizanidine HCl) 2 Mg Tablet, 4 MG PO 1800, (Reported) Entered as Reported by: MELVINA WARNER on 02/22/22 1523 Review of Systems Review of Systems Constitutional: see HPI Past Ywnwkfa-Ehxwtj-Azppra Hx Patient Social History Tobacco Use?: No Substance use?: No Alcohol Use?: No Pt feels they are or have been: No Immunizations Up To Date First/Initial COVID19 Vaccinat: x2 Second COVID19 Vaccination Mohamud: UP TO DATE Third COVID19 Vaccination Date: UP TO DATE Past Medical History Surgery/Hospitalization HX: alzh, osteoporosis, hld, htn, hypothryoid, depression, anxiety, gerd, constipation, falls bilateral hip fx. Surgeries: Yes (left hip fracture 01/22/20) Orthopedic Respiratory: No Cardiac: Yes High Cholesterol, Hypertension Neurological: Yes Dementia Genitourinary: No Gastrointestinal: Yes Gastroesophageal Reflux, Chronic Constipation Musculoskeletal: No Endocrine: Yes Hypothyroidsim HEENT: No Cancer: No Psychosocial: Yes Anxiety Integumentary: No Blood Disorders: No Family Medical History No Pertinent Family Hx Physical Exam Vital Signs Vital Signs - First Documented 01/18/23 20:33 Temp 36.7 Pulse 65 Resp 16 B/P (MAP) 119/62 (81) Pulse Ox 95 O2 Delivery Room Air Capillary Refill : Less Than 3 Seconds Height, Weight, BMI Height: '" Weight: lbs. oz. kg; 27.00 BMI Method: General Appearance: WD/WN, no apparent distress, other (SMILING, DOES NOT APPEAR TO BE IN ANY DISCOMFORT OR DISTRESS. SPEECH IS CLEAR, BUT ANSWERS ARE NON-SENSICAL. PT APPEARS CONFUSED X 3--ORIENTED TO SELF ONLY. ) HEENT: PERRL/EOMI, normal ENT inspection, TMs normal, pharynx normal, other (LARGE BRUISE TO FOREHEAD; ABRASIONS TO BRIDGE OF NOSE AND ABOVE UPPER LIP. 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, no motor/sensory deficits, alert, normal mood/affect Skin: normal color, warm/dry [place] Coma Score Best Eye Response: (4) Open Spontaneously Best Verbal Response: (4) Confused Conversation Best Motor Response: (6) Obeys Commands [place] Total: 15 Progress/Results/Core Measures Results/Orders My Orders Orders - MIGUELINA TOVAR DO Ct Head/Face/Cervical Wo (01/18/23 20:35) Chest 1 View, Ap/Pa Only (01/18/23 20:35) Pelvis 1 To 2 Views (01/18/23 20:35) Vital Signs/I&O 01/18/23 01/18/23 20:33 22:27 Temp 36.7 36.7 Pulse 65 73 Resp 16 16 B/P (MAP) 119/62 (81) 113/63 Pulse Ox 95 95 O2 Delivery Room Air Room Air Blood Pressure Mean: 81 Progress Progress Note : Progress Note NO DETERIORATION IN PT'S CONDITION DURING ER STAY REVIEWED [facility] RECORDS, ER VISITS, ADMITS/H&P'S/CONSULTS/DISCHARGE SUMMARIES, TESTS/PROCEDURES Diagnostic Imaging Comments CT HEAD/MAXILLOFACIALS/CERVICAL SPINE--PER RADIOLOGIST REPORT AT 2127 FINDINGS: CT HEAD: No large acute territorial ischemia, mass or hemorrhage. No midline shift or mass effect. Decreased attenuation is seen in the periventricular and subcortical white matter. The ventricles and cortical sulci are prominent. The basilar cisterns are patent and unremarkable. Small contusion is seen overlying the forehead at the midline. The calvarium is intact. Small osteoma is seen off the forehead left of midline. CT FACE: No acute facial fracture is visualized. The mandible, zygomatic arches and pterygoid plates are intact. The bilateral TMJ demonstrate normal articulation. No nasal bone fracture. The bony nasal septum is slightly deviated to the left without fracture. The paranasal sinuses and mastoid air cells are well pneumatized. The globes and orbits are symmetric and unremarkable. No evidence of orbital rim fracture. CT CERVICAL SPINE: No acute fracture or dislocation is seen in the cervical spine. No focal osseous lesion. There is grade 1 anterolisthesis of C4 on C5 and C5 on C6. Right convexity curvature of the cervical spine is noted. Vertebral body heights are well-maintained. The craniocervical junction is well-maintained. Soft tissues of the neck are unremarkable. The included lung apices are clear. IMPRESSION: 1. No hemorrhage or focal intra-axial mass. No CT evidence of large acute territorial ischemia. 2. No acute fracture or dislocation in the cervical spine. 3. No acute facial fracture. CXR--PER RADIOLOGIST REPORT AT 2150 FINDINGS: The lung volumes are normal. No focal consolidation is seen. Scattered prominent interstitial markings are seen in the lungs. No large pleural effusion or pneumothorax is seen. The cardiomediastinal silhouette is stable in size. No acute osseous abnormality is seen. IMPRESSION: Scattered prominent interstitial markings, which may represent edema and/or chronic fibrotic changes. PELVIS XRAY--PER RADIOLOGIST REPORT AT 2150 FINDINGS: There is no acute fracture or dislocation of the pelvis and bilateral hips. Prior surgical fixation of the proximal right femur is seen and prior left hip arthroplasty changes. No hardware fracture or loosening. Chronic fractures are seen in the inferior pubic rami. IMPRESSION: No acute fracture or dislocation in the pelvis or bilateral hips. Reviewed: Reviewed by Me Departure Impression Primary Impression: Unwitnessed fall Additional Impressions: Facial contusion MINOR HEAD INJURY WITH UNKNOWN LOSS OF CONSCIOUSNESS Facial abrasion Disposition: 03 XF SNF Condition: Stable Departure-Patient Inst. Decision time for Depature: 21:55 Referrals: YIN KIMBLE MD (PCP/Family) Primary Care Physician Patient Instructions: Contusion (DC), Minor Head Injury, Adult ED, Preventing Falls in Older Adults, Abrasions ED Add. Discharge Instructions: CONTINUE ALL YOUR REGULAR MEDICATIONS FOLLOW UP WITH YOUR DR NEEDED All discharge instructions reviewed with patient and/or family. Voiced understanding. MIGUELINA TOVAR DO January 18, 2023 20:50
--- NOTE | 2023-01-18 21:10 | Diagnostic Imaging Report ---
PROCEDURE: CT head, face and cervical spine without contrast. TECHNIQUE: Multiple contiguous axial images were obtained through the head, neck and facial bones without the use of intravenous contrast. Sagittal and coronal reformations through the cervical spine and facial bones were also performed. Auto Exposure Controls were utilized during the CT exam to meet ALARA standards for radiation dose reduction. INDICATION: Fall. Head and neck pain. Facial bruising. COMPARISON: 03/27/2022. FINDINGS: CT HEAD: No large acute territorial ischemia, mass or hemorrhage. No midline shift or mass effect. Decreased attenuation is seen in the periventricular and subcortical white matter. The ventricles and cortical sulci are prominent. The basilar cisterns are patent and unremarkable. Small contusion is seen overlying the forehead at the midline. The calvarium is intact. Small osteoma is seen off the forehead left of midline. CT FACE: No acute facial fracture is visualized. The mandible, zygomatic arches and pterygoid plates are intact. The bilateral TMJ demonstrate normal articulation. No nasal bone fracture. The bony nasal septum is slightly deviated to the left without fracture. The paranasal sinuses and mastoid air cells are well pneumatized. The globes and orbits are symmetric and unremarkable. No evidence of orbital rim fracture. CT CERVICAL SPINE: No acute fracture or dislocation is seen in the cervical spine. No focal osseous lesion. There is grade 1 anterolisthesis of C4 on C5 and C5 on C6. Right convexity curvature of the cervical spine is noted. Vertebral body heights are well-maintained. The craniocervical junction is well-maintained. Soft tissues of the neck are unremarkable. The included lung apices are clear. IMPRESSION: 1. No hemorrhage or focal intra-axial mass. No CT evidence of large acute territorial ischemia. 2. No acute fracture or dislocation in the cervical spine. 3. No acute facial fracture. Dictated by: Dictated on workstation # [id number]
--- NOTE | 2023-01-18 21:49 | Diagnostic Imaging Report ---
EXAMINATION: Chest 1 view. HISTORY: Fall. Chest pain. COMPARISON: 02/23/2022. FINDINGS: The lung volumes are normal. No focal consolidation is seen. Scattered prominent interstitial markings are seen in the lungs. No large pleural effusion or pneumothorax is seen. The cardiomediastinal silhouette is stable in size. No acute osseous abnormality is seen. IMPRESSION: Scattered prominent interstitial markings, which may represent edema and/or chronic fibrotic changes. Dictated by: Dictated on workstation # [id number]
--- NOTE | 2023-01-18 21:50 | Diagnostic Imaging Report ---
CLINICAL HISTORY: Fall. Pelvic pain. COMPARISON: 03/27/2022. TECHNIQUE: Single frontal view of the pelvis was obtained. FINDINGS: There is no acute fracture or dislocation of the pelvis and bilateral hips. Prior surgical fixation of the proximal right femur is seen and prior left hip arthroplasty changes. No hardware fracture or loosening. Chronic fractures are seen in the inferior pubic rami. IMPRESSION: No acute fracture or dislocation in the pelvis or bilateral hips. Dictated by: Dictated on workstation # [id number]
[2023-01-18 22:27] VITALS: BP 113/63
== END 2023-01-18 23:14 | disposition home or self-care (01) ==
LOC: EDUNIT# 20:28 → ER 20:29
DX: S06.9XAA Unspecified intracranial injury with loss of consciousness status unknown, initial encounter (principal); S00.83XA Contusion of other part of head, initial encounter; S00.31XA Abrasion of nose, initial encounter; S00.511A Abrasion of lip, initial encounter; R40.2362 Coma scale, best motor response, obeys commands, at arrival to emergency department; R40.2242 Coma scale, best verbal response, confused conversation, at arrival to emergency department; R40.2142 Coma scale, eyes open, spontaneous, at arrival to emergency department; W19.XXXA Unspecified fall, initial encounter; W22.8XXA Striking against or struck by other objects, initial encounter
CPT/HCPCS: 70450; 70486; 71045; 72125; 72170

== ENCOUNTER 2023-05-03 16:40 | Emergency (ER) | payer MEDICARE ==
[~2023-05-03] VITALS: Ht 160 cm; Wt 63.5 kg
[~2023-05-03 16:40] MED LIST changes: -POTA10CA44 PO; +POTA10CA84 PO
--- NOTE | 2023-05-03 16:52 | ED Fall/Injury ---
General Chief Complaint: Trauma-Non Activation Stated Complaint: FALL Source: patient Exam Limitations: no limitations (ADIA INTERIANO) History of Present Illness Date Seen by Provider: May 03, 2023 Time Seen by Provider: 16:50 Initial Comments Patient is a 78-year-old female with a history of dementia who presents ED from our care and rehab for evaluation after a fall. Patient was walking to the dining area. Patient tripped over someone's leg causing her to fall hitting the left side of her head. She was complaining of left hip pain and left wrist pain. This was a witnessed fall. No obvious loss of consciousness. She is not on blood thinners. Advanced dementia difficulty obtaining history. No change in mentation. No vomiting. She was able to stand and bear weight. All extremities. No obvious bruising to the lower or upper extremities. No chest pain, cough, shortness of breath, fever, decreased urine output. (ADIA INTERIANO) Allergies and Home Medications Allergies Coded Allergies: amoxicillin (Verified Allergy, Unknown, 01/22/20) Patient Home Medication List Home Medication List Reviewed: Yes (ADIA INTERIANO) Acetaminophen (Tylenol) 325 Mg Tablet, 650 MG PO Q4H PRN for PAIN-MILD (1-4), (Reported) Entered as Reported by: BEATRICE FOSTER on 01/23/20 0208 Acetaminophen (Tylenol) 325 Mg Tablet, 650 MG PO 0700,1200,1800, (Reported) Entered as Reported by: MELVINA WARNER on 02/22/22 152 Alendronate Sodium (Fosamax) 70 Mg Tablet, 70 MG PO FRI, (Reported) Entered as Reported by: MELVINA WARNER on 02/22/22 152 Atorvastatin Calcium (Lipitor) 10 Mg Tablet, 10 MG PO 1800, (Reported) Entered as Reported by: MELVINA WARNER on 02/22/22 152 Bisacodyl (Bisacodyl) 10 Mg Supp.rect, 10 MG RC DAILY PRN PRN for CONSTIPATION- 1ST LINE, (Reported) Entered as Reported by: BEATRICE FOSTER on 01/23/20 0238 Calcium Citrate/Vitamin D3 (Citracal-Vit D 200 mg-250 Tab) 1 Each Tablet, 1 EACH PO DAILY, (Reported) Entered as Reported by: BEATRICE FOSTER on 01/23/20 023 Denosumab (Prolia) 60 Mg/Ml Disp.syrin, 60 MG SQ [id number], (Reported) Entered as Reported by: NATY MONTGOMERY on 03/27/22 105 Famotidine (Famotidine) 20 Mg Tablet, 20 MG PO DAILY PRN for HEARTBURN, (Reported) Entered as Reported by: BEATRICE FOSTER on 01/23/20 0324 Furosemide (Furosemide) 20 Mg Tablet, 20 MG PO 0600,1200, (Reported) Entered as Reported by: BEATRICE FOSTER on 01/23/20 025 Gabapentin (Gabapentin) 100 Mg Capsule, 100 MG PO DAILY, (Reported) Entered as Reported by: BEATRICE FOSTER on 01/23/20 023 Hydrocodone/Acetaminophen (Hydrocodone-Acetamin 5-325 mg) 5 Mg-325 Mg Tablet, 2 TAB PO Q4H PRN for PAIN-MODERATE (5-7), (Reported) Entered as Reported by: MELVINA WARNER on 02/22/22 152 Levothyroxine Sodium (Levothyroxine Sodium) 25 Mcg Tablet, 25 MCG PO DAILY, (Reported) Entered as Reported by: BEATRICE FOSTER on 01/23/20 025 Linaclotide (Linzess) 72 Mcg Capsule, 72 MCG PO DAILY, (Reported) Entered as Reported by: BEATRICE FOSTER on 01/23/20 024 Lisinopril (Lisinopril) 40 Mg Tablet, 40 MG PO DAILY, (Reported) Entered as Reported by: BEATRICE FOSTER on 01/23/20 024 Melatonin (Melatonin) 3 Mg Tablet, 6 MG PO HS, (Reported) Entered as Reported by: MELVINA WARNER on 02/22/22 152 Memantine HCl (Memantine HCl) 10 Mg Tablet, 10 MG PO 0600,1800, (Reported) Entered as Reported by: BEATRICE FOSTER on 01/23/20 031 Mineral Oil, Light/Mineral Oil (Soothe Xp Eye Drops) 1 %-4.5 % Drops, 1 DROP OU 0600,1800, (Reported) Entered as Reported by: MELVINA WARNER on 02/22/22 1523 Polyethylene Glycol 3350 (Polyethylene Glycol 3350) 17 Gm Powd.pack, 17 GM PO DAILY PRN PRN for CONSTIPATION-2ND LINE, (Reported) Entered as Reported by: BEATRICE FOSTER on 01/23/20 0249 Potassium Chloride (Potassium Chloride) 10 Meq Tab.er.prt, 10 MEQ PO 0600,1200, (Reported) Entered as Reported by: BEATRICE FOSTER on 01/23/20 0328 Sertraline HCl (Sertraline HCl) 25 Mg Tablet, 25 MG PO 1800, (Reported) Entered as Reported by: BEATRICE FOSTER on 01/23/20 0249 Tizanidine HCl (Tizanidine HCl) 2 Mg Tablet, 4 MG PO 1800, (Reported) Entered as Reported by: MELVINA WARNER on 02/22/22 1523 Review of Systems Review of Systems Constitutional: No chills Eyes: Denies Drainage, Denies Decreased Acuity Ears, Nose, Mouth, Throat: denies ear pain, denies ear discharge Respiratory: No cough, No dyspnea on exertion Cardiovascular: No chest pain Gastrointestinal: No abdominal pain, No diarrhea, No nausea, No vomiting Genitourinary: No decreased output, No discharge Musculoskeletal: No back pain; joint pain, muscle pain, muscle stiffness Skin: change in color (ADIA INTERIANO) All Other Systems Reviewed Negative Unless Noted: Yes (ADIA INTERIANO) Past Qpxxnlu-Luqaqr-Hjismm Hx Patient Social History Tobacco Use?: No Substance use?: No Alcohol Use?: No Pt feels they are or have been: No (ADIA INTERIANO) Immunizations Up To Date First/Initial COVID19 Vaccinat: x2 Second COVID19 Vaccination Mohamud: x2 Third COVID19 Vaccination Date: x2 (ADIA INTERIANO) Past Medical History Surgery/Hospitalization HX: alzh, osteoporosis, hld, htn, hypothryoid, depression, anxiety, gerd, constipation, falls bilateral hip fx. Surgeries: Yes (left hip fracture 01/22/20) Orthopedic Respiratory: No Cardiac: Yes High Cholesterol, Hypertension Neurological: Yes Dementia Genitourinary: No Gastrointestinal: Yes Gastroesophageal Reflux, Chronic Constipation Musculoskeletal: No Endocrine: Yes Hypothyroidsim HEENT: No Cancer: No Psychosocial: Yes Anxiety Integumentary: No Blood Disorders: No (ADIA INTERIANO) Family Medical History No Pertinent Family Hx (ADIA INTERIANO) Physical Exam Vital Signs Vital Signs - First Documented 05/03/23 16:43 Temp 36.6 Pulse 69 Resp 18 B/P (MAP) 157/80 (105) Pulse Ox 97 O2 Delivery Room Air (JESSIKA CARDONA MD) Vital Signs Capillary Refill : (ADIA INTERIANO) Height, Weight, BMI Height: '" Weight: lbs. oz. kg; 27.00 BMI Method: General Appearance: WD/WN, no apparent distress HEENT: PERRL/EOMI, normal ENT inspection, TMs normal, pharynx normal, other (Contusion to the left forehead. No crepitus or step-off) Neck: non-tender, full range of motion, supple Cardiovascular: regular rate, rhythm, no edema, no gallop, no JVD Respiratory: chest non-tender, lungs clear, normal breath sounds, no respiratory distress, no accessory muscle use Gastrointestinal: normal bowel sounds, non tender, soft, no organomegaly Extremities: normal range of motion, non-tender, normal inspection Neurologic/Psychiatric: butcher scullion II-XII nml as tested, no motor/sensory deficits, alert, normal mood/affect, oriented x 3 Skin: normal color, warm/dry (ADIA INTERIANO) [place] Coma Score Best Eye Response: (4) Open Spontaneously Best Verbal Response: (5) Oriented Best Motor Response: (6) Obeys Commands [place] Total: 15 (ADIA INTERIANO) Progress/Results/Core Measures Results/Orders Vital Signs/I&O 05/03/23 05/03/23 05/03/23 16:43 18:04 18:07 Temp 36.6 36.6 36.6 Pulse 69 61 61 Resp 18 18 18 B/P (MAP) 157/80 (105) 147/75 (99) 147/75 Pulse Ox 97 97 97 O2 Delivery Room Air Room Air (JESSIKA CARDONA MD) Departure Communication (PCP) Reviewed previous ER visits, H&P, lab testing. Patient is a resident at [facility]. Patient with advanced dementia. Mechanical witnessed fall. She tripped over someone's feet landing on her left side hitting her head on the ground. No obvious loss of consciousness. She is at her current normal mentation. She does appear confused. Difficulty obtaining history from patient. She does have a small contusion to the left forehead without crepitus or step-off. No cervical midlines tenderness. She was complaining of left wrist to me without obvious deformity. According to staff she was complaining of left hip pain but was able to ambulate after the fall. CT scan of the head and cervical neck was ordered as well as x-ray left wrist and left hip. There is no obvious bruising or swelling to the chest, abdomen. She has no thoracic or lumbar midline tenderness. CT scan of the head and cervical neck was negative for acute fracture. X-ray of the left wrist and left hip was negative for acute fracture. She is wanting to get out of bed and walk. She does not appear in distress. Patient will be discharged back to the facility. Her vital signs remained stable. Recommend Tylenol for pain. If any worsening symptoms such as change in mentation, vomiting to return back to ED. follow-up with your PCP in 2 to 3 days for reevaluation (ADIA INTERIANO) Impression Primary Impression: Head contusion Disposition: 01 HOME, SELF-CARE Condition: Stable Departure-Patient Inst. Decision time for Depature: 17:48 (ADIA INTERIANO) Referrals: YIN KIMBLE MD (PCP/Family) Primary Care Physician Patient Instructions: Minor Head Injury Add. Discharge Instructions: No cranial fracture or intracranial bleed. No fracture of the hip or wrist. Continue monitoring symptoms at home. Tylenol help with pain. If any worsening symptoms return back to ED. All discharge instructions reviewed with patient and/or family. Voiced understanding. ATTENDING PHYSICIAN NOTE: I was physically present as attending physician in the emergency department dur ing the care of this patient, but I was not directly involved in the decision making or delivery of care for this patient. (JESSIKA CARDONA MD) ADIA INTERIANO May 03, 2023 16:52 JESSIKA CARDONA MD May 04, 2023 08:05
--- NOTE | 2023-05-03 17:39 | Diagnostic Imaging Report ---
PROCEDURE: CT head and CT cervical spine without contrast. TECHNIQUE: Multiple contiguous axial images were obtained through the brain and cervical spine without the use of intravenous contrast. Sagittal and coronal reformations through the cervical spine were then performed. Auto Exposure Controls were utilized during the CT exam to meet ALARA standards for radiation dose reduction. INDICATION: Fall. Head and neck pain. Scalp contusion. COMPARISON: 01/18/2023. FINDINGS: CT head: No large acute territorial ischemia, mass, or hemorrhage. No midline shift or mass effect. Decreased attenuation is seen in the periventricular and subcortical white matter. The ventricles and cortical sulci are prominent. The basilar cisterns are patent and unremarkable. The calvarium is intact. The visualized paranasal sinuses are clear. CT cervical spine: No acute fracture or dislocation is seen in the cervical spine. No focal osseous lesions. Vertebral body heights are well-maintained. There is grade 1 anterolisthesis of C5 on C6. The craniocervical junction is well-maintained. Mild degenerative changes are seen in the cervical spine with disc osteophyte complexes and uncovertebral arthropathy. Soft tissues of the neck are unremarkable. IMPRESSION: 1. No hemorrhage or focal intra-axial mass. No CT evidence of large acute territorial ischemia. 2. No acute fracture or dislocation in the cervical spine. 3. Grade 1 anterolisthesis of C5 on C6. Dictated by: Dictated on workstation # [id number]
--- NOTE | 2023-05-03 17:47 | Diagnostic Imaging Report ---
EXAMINATION: Left hip unilateral 2 or 3 views (w/pelvis when done) HISTORY: left hip pain COMPARISON: 01/18/2023 FINDINGS: There is an unchanged left hip arthroplasty. No acute fracture is seen. There has been a right femoral neck fixation. There are old healed inferior pubic rami fractures. IMPRESSION: 1. No acute fracture in the pelvis. Dictated by: Dictated on workstation # [id number]
--- NOTE | 2023-05-03 17:48 | Diagnostic Imaging Report ---
EXAMINATION: Left wrist 3 or more views REASON FOR EXAM: Fall. Left wrist pain. COMPARISON: None available. FINDINGS: No acute fracture or dislocation of the left wrist. No focal osseous lesions. The carpal bones demonstrate normal alignment. IMPRESSION: No acute fracture or dislocation in left wrist. Dictated by: Dictated on workstation # [id number]
[2023-05-03 18:07] VITALS: BP 147/75
== END 2023-05-03 18:40 | disposition home or self-care (01) ==
LOC: EDUNIT# 16:40 → ER 16:41
DX: S00.83XA Contusion of other part of head, initial encounter (principal); M25.552 Pain in left hip; M25.532 Pain in left wrist; W01.0XXA Fall on same level from slipping, tripping and stumbling without subsequent striking against object, initial encounter; Y93.01 Activity, walking, marching and hiking
CPT/HCPCS: 70450; 72125; 73110